=== PATIENT | female | born 1990 | race American Indian/Alaskan Native ===

== ENCOUNTER 2017-06-26 16:07 | Emergency (ER) | payer MEDICAID ==
[2017-06-26 17:16] LABS: Hematocrit 38.9 % (30.3-42.9); Hemoglobin 12.2 gm/dl (10.1-14.3); Mean Corpuscular HGB Conc 32 % (30-34); Mean Corpuscular Volume 81 fl (79-97); Platelet Count 264 K/mm3 (140-440); Red Blood Count 4.81 M/mm3 (3.65-5.03); Red Cell Distribution Width 15.2 % (13.2-15.2); White Blood Count 7.5 K/mm3 (4.5-11.0)
[2017-06-26 17:34] LABS: BUN/Creatinine Ratio 20; Blood Urea Nitrogen 10 mg/dL (7-17); Calcium 8.6 mg/dL (8.4-10.2); Carbon Dioxide 25 mmol/L (22-30); Glucose 458 mg/dL (65-100); Potassium 4.2 mmol/L (3.6-5.0); Sodium 139 mmol/L (137-145)
[2017-06-26 17:35] LABS: Anion Gap 17 mmol/L; Chloride 101.7 mmol/L (98-107); Mean Corpuscular Hemoglobin 25 pg (28-32)
[2017-06-26 20:42] LABS: Urine Drugs of Abuse Note Disclamer
[2017-06-26 21:06] LABS: Bilirubin,Urine NEG (Negative); Blood,Urine SM (Negative); Ketones,Urine NEG (Negative); Leukocyte Esterase,Urine NEG (Negative); Nitrite,Urine NEG (Negative); Protein,Urine <15 mg/dL mg/dL (Negative); Urobilinogen,Urine < 2.0 mg/dL (<2.0)
--- NOTE | 2017-06-26 21:49 | Cat Scan Report ---
FINAL REPORT PROCEDURE: CT HEAD/BRAIN WO CON TECHNIQUE: Computerized tomography of the head was performed without contrast material. HISTORY: weakness on left side COMPARISON: No prior studies are available for comparison. FINDINGS: Visualized portions of the paranasal sinuses and mastoid air cells are clear. No calvarial fracture is seen. Cerebral ventricles are normal in size. No acute intracranial hemorrhage or mass effect is seen. No CVA is seen. IMPRESSION: No abnormalities are seen.
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
[2017-06-27 00:15] VITALS: BP 129/78
[2017-06-27] MEDS ORDERED: TORADOL IV ONE (00:28)
[2017-06-27] MEDS ORDERED: TORADOL ONE (00:29)
[2017-06-27 01:54] LABS: INR 0.96 (0.87-1.13)
[2017-06-27 01:55] LABS: Partial Thromboplastin Time 24.1 Sec. (24.2-36.6)
== END 2017-06-27 02:08 | disposition admitted as inpatient to this hospital (09) ==
LOC: ED 16:07
DX: G40.909 Epilepsy, unspecified, not intractable, without status epilepticus (principal); E11.65 Type 2 diabetes mellitus with hyperglycemia; Z79.4 Long term (current) use of insulin; R53.1 Weakness; F17.200 Nicotine dependence, unspecified, uncomplicated; Z88.8 Allergy status to other drugs, medicaments and biological substances
CPT/HCPCS: 36415; 70450; 80048; 80307; 81001; 81025; 82550; 82962; 85027; 85379; 85610; 85730; 96374; 96375; 99284; J1885; J1815

== ENCOUNTER 2017-10-18 21:19 | Emergency (ER) | payer MEDICAID ==
[2017-10-18 21:44] VITALS: BP 110/53
[2017-10-18 22:03] LABS: Basophils # (Auto) 0.1 K/mm3 (0.0-0.1); Basophils % (Auto) 0.8 % (0.0-1.8); Eosinophils # (Auto) 0.1 K/mm3 (0.0-0.4); Eosinophils % (Auto) 0.8 % (0.0-4.3); Hematocrit 43.1 % (30.3-42.9); Hemoglobin 13.5 gm/dl (10.1-14.3); Lymphocytes # (Auto) 3.8 K/mm3 (1.2-5.4); Lymphocytes % (Auto) 49.2 % (13.4-35.0); Mean Corpuscular HGB Conc 31 % (30-34); Mean Corpuscular Volume 83 fl (79-97); Monocytes # (Auto) 0.5 K/mm3 (0.0-0.8); Monocytes % (Auto) 6.3 % (0.0-7.3); Platelet Count 251 K/mm3 (140-440)
[2017-10-18 22:06] LABS: Mean Corpuscular Hemoglobin 26 pg (28-32)
[2017-10-18 22:14] LABS: BUN/Creatinine Ratio 13; Blood Urea Nitrogen 5 mg/dL (7-17); Calcium 7.9 mg/dL (8.4-10.2); Hemolysis Index 8
[2017-10-18 23:08] LABS: Bilirubin,Urine NEG (Negative); Blood,Urine NEG (Negative); Color,Urine Straw (Yellow); Protein,Urine <15 mg/dL mg/dL (Negative); Urobilinogen,Urine < 2.0 mg/dL (<2.0); WBC,Urine < 1.0 /HPF (0.0-6.0)
== END 2017-10-19 00:50 | disposition left against medical advice (07) ==
LOC: ED 21:19
DX: R30.0 Dysuria (principal); Z53.21 Procedure and treatment not carried out due to patient leaving prior to being seen by health care provider
CPT/HCPCS: 36415; 80048; 81001; 82805; 82962; 84703; 85025

== ENCOUNTER 2017-10-19 01:31 | Emergency (ER) | payer MEDICAID | END 2017-10-19 01:45 | disposition left against medical advice (07) | LOC: ED 01:31 | DX: N93.9 Abnormal uterine and vaginal bleeding, unspecified (principal); Z53.21 Procedure and treatment not carried out due to patient leaving prior to being seen by health care provider ==

== ENCOUNTER 2018-05-21 15:50 | Outpatient (CLI) | payer MEDICAID ==
[2018-05-21] MEDS ORDERED: LACTATED RINGERS 1,000 ML ONE (16:05)
[2018-05-21] MEDS ORDERED: FIORICET PO PRN (16:09)
[2018-05-21] MEDS ORDERED: LACTATED RINGERS 500 ML IV ONE ×2 (16:17→17:00)
[2018-05-21 17:00] LABS: Bilirubin,Urine NEG (Negative); Blood,Urine NEG (Negative); Color,Urine Yellow (Yellow); Mucus,Urine FEW /HPF; Protein,Urine <15 mg/dL mg/dL (Negative); Urobilinogen,Urine < 2.0 mg/dL (<2.0)
[2018-05-21 17:06] LABS: Amphetamine Screen,Urine PRESUMPTIVE NEGATIVE; Benzodiazepines Screen,Urine PRESUMPTIVE NEGATIVE; Cocaine Screen,Urine PRESUMPTIVE NEGATIVE; Methadone Screen,Urine PRESUMPTIVE NEGATIVE; Opiate Screen,Urine PRESUMPTIVE NEGATIVE
[2018-05-21 17:22] LABS: Cannabinoid Screen,Urine PRESUMPTIVE POSITIVE
[2018-05-21 17:25] VITALS: BP 112/58
[2018-05-23] MEDS ORDERED: PITOCin/NS 20 UNIT/1000ML DRIP 0 MILLIUNITS/0 ML BAG IV ONE (00:43)
[2018-05-23] MEDS ORDERED: LACTATED RINGERS 1,000 ML ONE (00:51)
== END 2018-05-21 17:36 | disposition home or self-care (01) ==
LOC: TRG 15:50
PROVIDERS: ATTEND Obstetrics & Gynecology
DX: O47.03 False labor before 37 completed weeks of gestation, third trimester (principal); Z3A.35 35 weeks gestation of pregnancy; Z87.891 Personal history of nicotine dependence
CPT/HCPCS: 59025; 80307; 81001; 82962; 96360; J7120

== ENCOUNTER 2019-04-09 17:29 | Emergency (ER) | payer MEDICAID ==
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
[2019-04-09] MEDS ORDERED: levETIRAcetam 1000 MG/NS 0.75% 1,000 MG/100 ML BAG IV ONE ×2 (17:57)
[2019-04-09] MEDS ORDERED: SODIUM CHLORIDE 0.9% 1000 ML 1,000 ML IV ONE (17:57)
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
[2019-04-09] MEDS ORDERED: SODIUM CHLORIDE 0.9% 1000 ML 1,000 ML ONE (18:01)
[2019-04-09 18:45] LABS: Alanine Aminotransferase 8 units/L (7-56); Albumin 3.5 g/dL (3.9-5); BUN/Creatinine Ratio 12; Blood Urea Nitrogen 6 mg/dL (7-17); Calcium 8.5 mg/dL (8.4-10.2); Hemolysis Index 4
[2019-04-09] MEDS ORDERED: INSULIN REGULAR, HUMAN 100 UNITS/1 ML IV ONE (18:59)
[2019-04-09 21:02] LABS: Bacteria,Urine 1+ /HPF (Negative); Bilirubin,Urine NEG (Negative); Blood,Urine NEG (Negative); Color,Urine Yellow (Yellow); HCG Qualitative,Urine Negative (Negative); Mucus,Urine FEW /HPF; Protein,Urine <15 mg/dL mg/dL (Negative); Urobilinogen,Urine < 2.0 mg/dL (<2.0)
[2019-04-09] MEDS ORDERED: cefTRIAXone/NS 1 GM/50 ML 1 GM/50 ML BAG IV ONE (21:11)
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
--- NOTE | 2019-04-09 22:15 | Cat Scan Report ---
CT cervical spine wo con INDICATION: neck pain. TECHNIQUE: All CT scans at this location are performed using CT dose reduction for ALARA by means of automated e xposure control. COMPARISON: None available. FINDINGS: No fracture, subluxation or other significant abnormality. IMPRESSION: 1. Negative study. Signer Name: Kris Vargas MD Signed: 04/09/2019 10:10 PM Workstation Name: [id number]
--- NOTE | 2019-04-09 22:31 | Cat Scan Report ---
CT lumbar spine wo con INDICATION: back pain/injury. TECHNIQUE: All CT scans at this location are performed using CT dose reduction for ALARA by means of automated e xposure control. COMPARISON: None available. FINDINGS: No fracture, subluxation or other acute abnormality. No significant degenerative disc change or degen erative change of the facet joints. IMPRESSION: 1. Negative study. Signer Name: Kris Vargas MD Signed: 04/09/2019 10:26 PM Workstation Name: [id number]
[2019-04-09 23:37] VITALS: BP 116/82
== END 2019-04-09 23:49 | disposition home or self-care (01) ==
LOC: ED 17:29
DX: G44.309 Post-traumatic headache, unspecified, not intractable (principal); E11.65 Type 2 diabetes mellitus with hyperglycemia; R56.1 Post traumatic seizures; N30.00 Acute cystitis without hematuria; F25.9 Schizoaffective disorder, unspecified; F41.9 Anxiety disorder, unspecified; F43.10 Post-traumatic stress disorder, unspecified; Z79.899 Other long term (current) drug therapy; Z79.4 Long term (current) use of insulin; Z88.8 Allergy status to other drugs, medicaments and biological substances; V49.49XA Driver injured in collision with other motor vehicles in traffic accident, initial encounter; Y93.89 Activity, other specified; Y92.410 Unspecified street and highway as the place of occurrence of the external cause; Y99.8 Other external cause status
CPT/HCPCS: 36415; 70450; 72125; 72131; 80053; 80177; 81001; 81025; 82962; 96365; 96366; 96367; 96375; 99284; J0696; J1953; J7030; J1815

== ENCOUNTER 2019-11-30 04:08 | Inpatient (IN) | payer MEDICAID, OTHER ==
[2019-11-30 05:08] LABS: Bilirubin,Urine NEG (Negative); Blood,Urine LG (Negative); Color,Urine Straw (Yellow); Mucus,Urine FEW /HPF; Protein,Urine <15 mg/dL mg/dL (Negative); Urobilinogen,Urine < 2.0 mg/dL (<2.0)
[2019-11-30 05:21] LABS: Basophils % (Auto) 0.4 % (0.0-1.8); Eosinophils # (Auto) 0.1 K/mm3 (0.0-0.4); Eosinophils % (Auto) 0.9 % (0.0-4.3); Hematocrit 45.5 % (30.3-42.9); Hemoglobin 14.3 gm/dl (10.1-14.3); Lymphocytes # (Auto) 1.7 K/mm3 (1.2-5.4); Lymphocytes % (Auto) 19.5 % (13.4-35.0); Mean Corpuscular HGB Conc 31 % (30-34); Mean Corpuscular Volume 85 fl (79-97); Monocytes # (Auto) 0.7 K/mm3 (0.0-0.8); Monocytes % (Auto) 7.9 % (0.0-7.3); Platelet Count 229 K/mm3 (140-440); Red Blood Count 5.39 M/mm3 (3.65-5.03); Red Cell Distribution Width 14.5 % (13.2-15.2)
[2019-11-30] MEDS ORDERED: HYDROmorphone 1 MG/1 ML INJ ONE (05:35)
[2019-11-30 05:36] LABS: Alanine Aminotransferase 7 units/L (7-56); Albumin 3.9 g/dL (3.9-5); BUN/Creatinine Ratio 10; Blood Urea Nitrogen 7 mg/dL (7-17); Calcium 9.5 mg/dL (8.4-10.2); Hemolysis Index 2
[2019-11-30] MEDS ORDERED: HYDROmorphone 1 MG/1 ML INJ IV ONE (05:42)
--- NOTE | 2019-11-30 06:04 | Event Note ---
ED Screening Note Date of service: 11/30/19 Time: 05:58 ED Screening Note: 29-year-old -Citizen Of [place] female with a history of diabetes type 2 insulin- dependent comes in stating that she has 3 bowls on her vaginal area and states that her blood sugar has been elevated for 1 week. Patient states her pain is a 10 out of 10. This initial assessment/diagnostic orders/clinical plan/treatment(s) is/are subject to change based on patients health status, clinical progression and re- assessment by fellow clinical providers in the ED. Further treatment and workup at subsequent clinical providers discretion. Patient/guardian urged not to elope from the ED as their condition may be serious if not clinically assessed and managed. Initial orders include:
[2019-11-30] MEDS ORDERED: DEXTROSE 50% IN WATER (25GM) 50 ML SYRINGE IV PRN ×2 (06:10→11:28)
[2019-11-30] MEDS ORDERED: CEFEPIME/NS 1 GM/100 ML 1 GM/100 ML BAG IV ONE (06:19)
[2019-11-30] MEDS ORDERED: SODIUM CHLORIDE 0.9% 1000 ML 1,000 ML ONE (06:20)
[2019-11-30] MEDS ORDERED: VANCOMYCIN 1,500 MG in SODIUM CHLORIDE 0.9% 500 ML 500 ML IV ONE (06:30)
[2019-11-30] MEDS ORDERED: SODIUM CHLORIDE 0.9% 1000 ML 1,000 ML IV ONE ×3 (06:37→08:40)
[2019-11-30] MEDS ORDERED: VANCOMYCIN PHARMACY TO DOSE IV SCH (07:00)
[2019-11-30] MEDS ORDERED: INSULIN REGULAR, HUMAN 100 UNITS in SODIUM CHLORIDE 0.9% 99 ML IV SCH ×2 (07:00→12:00)
[2019-11-30] MEDS ORDERED: LIDOCAINE 1%/EPINEPHRINE 1:100,000 VIAL (20 ML) INFILTRATI ONE (07:12)
--- NOTE | 2019-11-30 07:12 | Emergency Department Report ---
ED General Adult HPI - General Chief complaint: Hyperglycemia Stated complaint: HIGH BLOOD SUGAR, VAGINAL BOILS Time Seen by Provider: 11/30/19 06:14 Source: patient, family, EMS Mode of arrival: Ambulatory Limitations: No Limitations - History of Present Illness Initial comments: This is a 29-year-old female who states that her sugars been elevated since yesterday. She states that she last used insulin yesterday morning. She states that she has never been treated for MRSA in the past. She states that she has never had a serious infection or a vaginal abscess before. Apparently she has had a vaginal abscess for the last several days. She also c omplains of bilateral flank pain, stating, "my kidneys hurt". She complains of generalized malaise and weakness. She has polydipsia. Previous records are largely obstetrical. There is a notation of "DKA". However I do not find any admission for DKA. I do see a history of seizure disorder, schizoaffective disorder and herpes simplex infection. -: Gradual, days(s) Severity scale (0 -10): 2 - Related Data Home Medications Medication Instructions Recorded Confirmed Last Taken Vit,Calc76/Iron/Folic 1 each PO DAILY 05/21/18 06/01/18 05/31/18 [Pnv 29-1 Tablet] Acyclovir [Zovirax Tab] 1 tab PO QDAY 06/01/18 06/01/18 05/31/18 Previous Rx's Medication Instructions Recorded Last Taken Type Ferrous Sulfate [Feosol 325 MG tab] 325 mg PO BID #60 tablet 06/02/18 Unknown Rx HYDROcodone/APAP 5-325 [Gray 1 each PO Q6HR PRN #30 tablet 06/02/18 Unknown Rx 5-325 mg TAB] Ibuprofen [Motrin 800 MG tab] 800 mg PO Q6H PRN #30 tablet 06/02/18 Unknown Rx Insulin NPH Hum/Reg Insulin Hm 50 units SUB-Q BID #1 vial 06/02/18 Unknown Rx [Humulin 70-30 Vial] Vit-Fe Fumar-FA [ 1 each PO QDAY #30 tablet 06/02/18 Unknown Rx Vitamin] levETIRAcetam [Keppra] 750 mg PO BID #60 tablet 06/02/18 Unknown Rx Acetaminophen/Codeine [Tylenol 1 tab PO Q6H PRN #8 tab 04/09/19 Unknown Rx /Codeine # 3 tab] cephALEXin [Keflex] 500 mg PO Q12H 7 Days #14 cap 04/09/19 Unknown Rx levETIRAcetam [Keppra TAB] 1,000 mg PO BID 15 Days #30 tab 04/09/19 Unknown Rx Allergies Allergy/AdvReac Type Severity Reaction Status Date / Time ondansetron Allergy Hives Verified 11/30/19 04:16 [From Zofran (as hydrochloride)] ED Review of Systems ROS: Stated complaint: HIGH BLOOD SUGAR, VAGINAL BOILS Other details as noted in HPI Constitutional: weakness. denies: chills, fever Eyes: denies: eye pain, eye discharge, vision change ENT: denies: ear pain, throat pain Respiratory: denies: cough, shortness of breath, wheezing Cardiovascular: denies: chest pain, palpitations Endocrine: no symptoms reported Gastrointestinal: denies: abdominal pain, diarrhea Genitourinary: other (Vaginal abscess). denies: urgency, dysuria, discharge Musculoskeletal: back pain. denies: joint swelling, arthralgia Skin: denies: rash, lesions Neurological: denies: headache, weakness, paresthesias Psychiatric: denies: anxiety, depression Hematological/Lymphatic: denies: easy bleeding, easy bruising ED Past Medical Hx - Past Medical History Hx Hypertension: No Hx Congestive Heart Failure: No Hx Diabetes: Yes (type 2) Hx Deep Vein Thrombosis: No Hx Sickle Cell Disease: No Hx Seizures: Yes (patient seized in labor room prior to ; last dose keppra 10 AM) Hx Psychiatric Treatment: Yes (Ptsd schizoaffective anxeity) Hx Asthma: No Hx COPD: No Hx HIV: No - Surgical History Additional Surgical History: umbilical hernia 03/2017 - Social History Smoking Status: Never Smoker Substance Use Type: None - Medications Home Medications: Home Medications Medication Instructions Recorded Confirmed Last Taken Type Vit,Calc76/Iron/Folic 1 each PO DAILY 05/21/18 06/01/18 05/31/18 History [Pnv 29-1 Tablet] Acyclovir [Zovirax Tab] 1 tab PO QDAY 06/01/18 06/01/18 05/31/18 History Ferrous Sulfate [Feosol 325 MG tab] 325 mg PO BID #60 tablet 06/02/18 Unknown Rx HYDROcodone/APAP 5-325 [Gray 1 each PO Q6HR PRN #30 tablet 06/02/18 Unknown Rx 5-325 mg TAB] Ibuprofen [Motrin 800 MG tab] 800 mg PO Q6H PRN #30 tablet 06/02/18 Unknown Rx Insulin NPH Hum/Reg Insulin Hm 50 units SUB-Q BID #1 vial 06/02/18 Unknown Rx [Humulin 70-30 Vial] Vit-Fe Fumar-FA [ 1 each PO QDAY #30 tablet 06/02/18 Unknown Rx Vitamin] levETIRAcetam [Keppra] 750 mg PO BID #60 tablet 06/02/18 Unknown Rx Acetaminophen/Codeine [Tylenol 1 tab PO Q6H PRN #8 tab 04/09/19 Unknown Rx /Codeine # 3 tab] cephALEXin [Keflex] 500 mg PO Q12H 7 Days #14 cap 04/09/19 Unknown Rx levETIRAcetam [Keppra TAB] 1,000 mg PO BID 15 Days #30 tab 04/09/19 Unknown Rx ED Physical Exam - General Limitations: Physical Limitation General appearance: alert, in distress - Head Head exam: Present: atraumatic, normocephalic - Eye Eye exam: Present: normal appearance. Absent: scleral icterus - ENT ENT exam: Present: mucous membranes dry - Neck Neck exam: Present: normal inspection. Absent: tenderness, meningismus - Respiratory Respiratory exam: Present: normal lung sounds bilaterally. Absent: respiratory distress - Cardiovascular Cardiovascular Exam: Present: normal rhythm, tachycardia. Absent: systolic murmur, diastolic murmur, rubs, gallop - GI/Abdominal GI/Abdominal exam: Present: soft, normal bowel sounds. Absent: distended, tenderness, guarding, rebound, rigid - Extremities Exam Extremities exam: Present: normal inspection - Back Exam Back exam: Present: normal inspection - Neurological Exam Neurological exam: Present: alert, oriented X3, CN II-XII intact. Absent: motor sensory deficit - Psychiatric Psychiatric exam: Present: agitated, anxious - Skin Skin exam: Present: warm, dry, intact, normal color. Absent: rash ED Course Vital Signs 11/30/19 11/30/19 11/30/19 04:11 05:30 05:46 Temperature 98.6 F Pulse Rate 68 63 Respiratory 20 16 Rate Blood Pressure 129/66 128/72 O2 Sat by Pulse 97 97 96 Oximetry 11/30/19 11/30/19 11/30/19 06:00 06:16 06:30 Temperature Pulse Rate 60 67 61 Respiratory 20 19 16 Rate Blood Pressure 121/70 121/70 130/78 O2 Sat by Pulse 97 96 94 Oximetry - I & D Vagina Type of Procedure: Simple Blade Size: 11 I & D Procedure: betadine prep, gauze wick placed Progress: Well-tolerated. A 1 to 2 cm incision was made. Culture was obtained. There really was not any obvious fluctuance. A second incision was made. This achieved obvious fluctuance. Culture was sent. - Moderate Sedation Indications: inciscion and drainage ASA Class: II Mallampati Airway Score: 1 Time of Last PO Intake: 00:00 Preparation: conveyor monitor applied, pulse oximeter, capnometry used, supplemental O2 applied, reversal agents at bedside, suction/airway equipment at bedside, IV secured Ketamine: IV Ketamine Dose: 100 Complications: none Patient Tolerated Procedure: well ED Medical Decision Making - Lab Data Result diagrams: 11/30/19 04:53 11/30/19 04:53 Laboratory Results - last 24 hr 11/30/19 11/30/19 11/30/19 04:29 04:50 04:53 WBC 8.7 RBC 5.39 H Hgb 14.3 Hct 45.5 H MCV 85 MCH 27 L MCHC 31 RDW 14.5 Plt Count 229 Lymph % (Auto) 19.5 [place] % (Auto) 7.9 H Eos % (Auto) 0.9 Baso % (Auto) 0.4 Lymph # 1.7 [place] # 0.7 Eos # 0.1 Baso # 0.0 Seg Neutrophils % 71.3 H Seg Neutrophils # 6.2 VBG pH Sodium Potassium Chloride Carbon Dioxide Anion Gap BUN Creatinine Estimated GFR BUN/Creatinine Ratio Glucose POC Glucose > 500 H Calcium Total Bilirubin AST ALT Alkaline Phosphatase Total Protein Albumin Albumin/Globulin Ratio Urine Color Straw Urine Turbidity Clear Urine pH 6.0 Ur Specific [place] 1.029 Urine Protein <15 mg/dl Urine Glucose (UA) >=500 Urine Ketones Neg Urine Blood Lg Urine Nitrite Neg Urine Bilirubin Neg Urine Urobilinogen < 2.0 Ur Leukocyte Esterase Tr Urine WBC (Auto) 4.0 Urine RBC (Auto) 4.0 U Epithel Cells (Auto) 5.0 Urine Mucus Few 04/30/20 04/30/20 04:53 04:53 WBC RBC Hgb Hct MCV MCH MCHC RDW Plt Count Lymph % (Auto) [place] % (Auto) Eos % (Auto) Baso % (Auto) Lymph # [place] # Eos # Baso # Seg Neutrophils % Seg Neutrophils # VBG pH 7.295 L Sodium 122 L Potassium 4.0 Chloride 85.7 L Carbon Dioxide 25 Anion Gap 15 BUN 7 Creatinine 0.7 Estimated GFR > 60 BUN/Creatinine Ratio 10 Glucose 992 H* POC Glucose Calcium 9.5 Total Bilirubin 0.20 AST 8 ALT 7 Alkaline Phosphatase 118 Total Protein 7.2 Albumin 3.9 Albumin/Globulin Ratio 1.2 Urine Color Urine Turbidity Urine pH Ur Specific [place] Urine Protein Urine Glucose (UA) Urine Ketones Urine Blood Urine Nitrite Urine Bilirubin Urine Urobilinogen Ur Leukocyte Esterase Urine WBC (Auto) Urine RBC (Auto) U Epithel Cells (Auto) Urine Mucus Critical Care Time: Yes Critical care time in (mins) excluding proc time.: 90 Critical care attestation.: If time is entered above; I have spent that time in minutes in the direct care of this critically ill patient, excluding procedure time. ED Disposition Clinical Impression: HHNC (hyperglycemic hyperosmolar nonketotic coma), Abscess, vagina Schizoaffective disorder Qualifiers: Schizoaffective disorder type: unspecified Qualified Code(s): F25.9 - Schizoaffective disorder, unspecified Disposition: OP ADMIT IP TO THIS HOSP Is pt being admited?: Yes Does the pt Need Aspirin: No Condition: Stable Instructions: Diabetes Mellitus Type 2 in Adults (ED) Referrals: PRIMARY CARE [Primary Care Provider] - 3-5 Days Time of Disposition: 08:18
[2019-11-30 07:31] LABS: INR 0.96 (0.87-1.13); Partial Thromboplastin Time 23.2 Sec. (24.2-36.6)
[2019-11-30 07:32] LABS: Creatine Kinase MB 1.1 ng/mL (0.0-4.0)
[2019-11-30 07:41] LABS: BUN/Creatinine Ratio 14; Blood Urea Nitrogen 7 mg/dL (7-17); Calcium 9.5 mg/dL (8.4-10.2); Hemolysis Index 75
[2019-11-30] MEDS: KETAMINE 500 MG/5 ML VIAL MDV IV ONE ×2 (07:54→08:00)
[2019-11-30] MEDS ORDERED: LORazepam 2 MG/ML VIAL IV ONE ×2 (07:58→08:00)
[2019-11-30] MEDS ORDERED: LORazepam 2 MG/ML VIAL ONE (07:59)
[2019-11-30 09:02] LABS: BUN/Creatinine Ratio 10; Blood Urea Nitrogen 5 mg/dL (7-17); Calcium 8.1 mg/dL (8.4-10.2); Hemolysis Index 7
[2019-11-30] MEDS ORDERED: POTASSIUM CHLORIDE 10 MEQ 10 MEQ/100 ML BAG IV SCH (10:00)
[2019-11-30] MEDS ORDERED: D5W/0.45% NACL/KCL 20 MEQ 20 MEQ/1,000 ML BAG IV ONE ×2 (10:42→10:43)
--- NOTE | 2019-11-30 10:58 | History and Physical Report ---
History of Present Illness Date of examination: 11/30/19 Date of admission: 11/30/19 08:19 Chief complaint: Elevated BG, vaginal abscess History of present illness: 29-year-old female who states that her sugars have been elevated since yesterday. She states that she last used insulin yesterday morning. She states that she has never been treated for MRSA in the past. She states that she has never had a serious infection or a vaginal abscess before. Apparently she has had a vaginal abscess for the last several days. She also complains of bilateral flank pain, stating, "my kidneys hurt". She complains of generalized malaise and weakness. She has polydipsia. Although the history was obtained from the ER record. Patient was somnolent at the time of my interview and not responding to questions. Patient did follow intermittent commands and open eyes to voice. Past History Past Medical History: diabetes, seizures, other (Schizoaffective disorder) Past Surgical History: Other ( umbilical hernia 03/2017) Social history: no significant social history Family history: no significant family history Medications and Allergies Allergies Allergy/AdvReac Type Severity Reaction Status Date / Time ondansetron Allergy Hives Verified 11/30/19 04:16 [From Zofran (as hydrochloride)] Home Medications Medication Instructions Recorded Confirmed Last Taken Type Vit,Calc76/Iron/Folic 1 each PO DAILY 05/21/18 06/01/18 05/31/18 History [Pnv 29-1 Tablet] Acyclovir [Zovirax Tab] 1 tab PO QDAY 06/01/18 06/01/18 05/31/18 History Ferrous Sulfate [Feosol 325 MG tab] 325 mg PO BID #60 tablet 06/02/18 Unknown Rx HYDROcodone/APAP 5-325 [[place] 1 each PO Q6HR PRN #30 tablet 06/02/18 Unknown Rx 5-325 mg TAB] Ibuprofen [Motrin 800 MG tab] 800 mg PO Q6H PRN #30 tablet 06/02/18 Unknown Rx Insulin NPH Hum/Reg Insulin Hm 50 units SUB-Q BID #1 vial 06/02/18 Unknown Rx [Humulin 70-30 Vial] Vit-Fe Fumar-FA [ 1 each PO QDAY #30 tablet 06/02/18 Unknown Rx Vitamin] levETIRAcetam [Keppra] 750 mg PO BID #60 tablet 06/02/18 Unknown Rx Acetaminophen/Codeine [Tylenol 1 tab PO Q6H PRN #8 tab 04/09/19 Unknown Rx /Codeine # 3 tab] cephALEXin [Keflex] 500 mg PO Q12H 7 Days #14 cap 04/09/19 Unknown Rx levETIRAcetam [Keppra TAB] 1,000 mg PO BID 15 Days #30 tab 04/09/19 Unknown Rx Active Meds: Active Medications Dextrose (D50w (25gm) Syringe) 0 ml IV Q30MIN PRN; Protocol PRN Reason: Hypoglycemia Insulin Human Regular 100 (units/ Sodium Chloride) 100 mls @ 1 mls/hr IV TITR YOJANA; Protocol Last Titration: 11/30/19 10:21 Dose: 5 units/hr, 5 mls/hr Documented by: Vancomycin HCl 1,250 mg/ (Sodium Chloride) 275 mls @ 166.667 mls/hr IV Q8HR YOJANA Sodium Chloride (Nacl 0.9% 1000 Ml) 1,000 mls @ 125 mls/hr IV DIRECT YOJANA Potassium Chloride (Kcl 10meq/100ml) 10 meq in 100 mls @ 100 mls/hr IV Q1H YOJANA Stop: 11/30/19 13:59 Review of Systems All systems: negative Exam - Constitutional Vitals: Temp Pulse Resp BP Pulse Ox 97.8 F 72 20 110/61 100 11/30/19 07:42 11/30/19 10:27 11/30/19 10:27 11/30/19 09:45 11/30/19 09:45 General appearance: Present: no acute distress, well-nourished - EENT Eyes: Present: PERRL ENT: hearing intact, clear oral mucosa - Neck Neck: Present: supple, normal ROM - Respiratory Respiratory effort: normal Respiratory: bilateral: CTA - Cardiovascular Heart Sounds: Present: S1 & S2. Absent: rub, click - Extremities Extremities: pulses symmetrical, No edema Peripheral Pulses: within normal limits - Abdominal General gastrointestinal: Present: soft, non-tender, non-distended, normal bowel sounds Female genitourinary: Present: normal - Integumentary Integumentary: Present: clear, warm, dry - Musculoskeletal Musculoskeletal: gait normal, strength equal bilaterally - Psychiatric Psychiatric: appropriate mood/affect, intact judgment & insight - Neurologic Neurologic: CNII-XII intact, moves all extremities Results - Labs CBC & Chem 7: 11/30/19 04:53 11/30/19 08:23 Labs: Laboratory Last Values WBC 8.7 K/mm3 (4.5-11.0) 11/30/19 04:53 RBC 5.39 M/mm3 (3.65-5.03) H 11/30/19 04:53 Hgb 14.3 gm/dl (10.1-14.3) 11/30/19 04:53 Hct 45.5 % (30.3-42.9) H 11/30/19 04:53 MCV 85 fl (79-97) 11/30/19 04:53 MCH 27 pg (28-32) L 11/30/19 04:53 MCHC 31 % (30-34) 11/30/19 04:53 RDW 14.5 % (13.2-15.2) 11/30/19 04:53 Plt Count 229 K/mm3 (140-440) 11/30/19 04:53 Lymph % (Auto) 19.5 % (13.4-35.0) 11/30/19 04:53 [place] % (Auto) 7.9 % (0.0-7.3) H 11/30/19 04:53 Eos % (Auto) 0.9 % (0.0-4.3) 11/30/19 04:53 Baso % (Auto) 0.4 % (0.0-1.8) 11/30/19 04:53 Lymph # 1.7 K/mm3 (1.2-5.4) 11/30/19 04:53 [place] # 0.7 K/mm3 (0.0-0.8) 11/30/19 04:53 Eos # 0.1 K/mm3 (0.0-0.4) 11/30/19 04:53 Baso # 0.0 K/mm3 (0.0-0.1) 11/30/19 04:53 Seg Neutrophils % 71.3 % (40.0-70.0) H 11/30/19 04:53 Seg Neutrophils # 6.2 K/mm3 (1.8-7.7) 11/30/19 04:53 PT 12.9 Sec. (12.2-14.9) 11/30/19 06:47 INR 0.96 (0.87-1.13) 11/30/19 06:47 APTT 23.2 Sec. (24.2-36.6) L 11/30/19 06:47 VBG pH 7.295 (7.320-7.420) L 11/30/19 04:53 Sodium 132 mmol/L (137-145) L D 11/30/19 08:23 Potassium 3.5 mmol/L (3.6-5.0) L D 11/30/19 08:23 Chloride 99.1 mmol/L (98-107) 11/30/19 08:23 Carbon Dioxide 21 mmol/L (22-30) L 11/30/19 08:23 Anion Gap 15 mmol/L 11/30/19 08:23 BUN 5 mg/dL (7-17) L 11/30/19 08:23 Creatinine 0.5 mg/dL (0.7-1.2) L 11/30/19 08:23 Estimated GFR > 60 ml/min 11/30/19 08:23 BUN/Creatinine Ratio 10 % 11/30/19 08:23 Glucose 504 mg/dL (65-100) H* 11/30/19 08:23 POC Glucose 250 (70-105) H 11/30/19 10:34 Lactic Acid 1.40 mmol/L (0.7-2.0) 11/30/19 06:47 Calcium 8.1 mg/dL (8.4-10.2) L 11/30/19 08:23 Phosphorus 5.00 mg/dL (2.5-4.5) H 11/30/19 06:47 Magnesium 1.90 mg/dL (1.7-2.3) 11/30/19 06:47 Total Bilirubin 0.20 mg/dL (0.1-1.2) 11/30/19 04:53 AST 8 units/L (5-40) 11/30/19 04:53 ALT 7 units/L (7-56) 11/30/19 04:53 Alkaline Phosphatase 118 units/L (35-129) 11/30/19 04:53 Total Creatine Kinase 66 units/L (30-135) 11/30/19 06:47 CK-MB (CK-2) 1.1 ng/mL (0.0-4.0) 11/30/19 06:47 CK-MB (CK-2) Rel Index 1.6 (0-4) 11/30/19 06:47 Troponin T < 0.010 ng/mL (0.00-0.029) 11/30/19 06:47 NT-Pro-B Natriuret Pep 61.51 pg/mL (0-450) 11/30/19 06:47 Total Protein 7.2 g/dL (6.3-8.2) 11/30/19 04:53 Albumin 3.9 g/dL (3.9-5) 11/30/19 04:53 Albumin/Globulin Ratio 1.2 % 11/30/19 04:53 Urine Color Straw (Yellow) 11/30/19 04:50 Urine Turbidity Clear (Clear) 11/30/19 04:50 Urine pH 6.0 (5.0-7.0) 11/30/19 04:50 Ur Specific [place] 1.029 (1.003-1.030) 11/30/19 04:50 Urine Protein <15 mg/dl mg/dL (Negative) 11/30/19 04:50 Urine Glucose (UA) >=500 mg/dL (Negative) 11/30/19 04:50 Urine Ketones Neg mg/dL (Negative) 11/30/19 04:50 Urine Blood Lg (Negative) 11/30/19 04:50 Urine Nitrite Neg (Negative) 11/30/19 04:50 Urine Bilirubin Neg (Negative) 11/30/19 04:50 Urine Urobilinogen < 2.0 mg/dL (<2.0) 11/30/19 04:50 Ur Leukocyte Esterase Tr (Negative) 11/30/19 04:50 Urine WBC (Auto) 4.0 /HPF (0.0-6.0) 11/30/19 04:50 Urine RBC (Auto) 4.0 /HPF (0.0-6.0) 11/30/19 04:50 U Epithel Cells (Auto) 5.0 /HPF (0-13.0) 11/30/19 04:50 Urine Mucus Few /HPF 11/30/19 04:50 Microbiology: Microbiology 11/30/19 Unknown Peripheral/Venous Blood Culture - Preliminary Culture in Progress 11/30/19 Unknown Peripheral/Venous Blood Culture - Preliminary Culture in Progress Assessment and Plan Assessment and plan: Sepsis. Patient meets criteria given the tachypnea, altered mentation and diagnosis of vaginal/labial abscess. Follow-up labial cultures, blood cultures and lactic acid levels. Continue IV antibiotics. Consider ID consultation. Vaginal labial abscess. Surgery consultation. Patient with I&D in the emergency department. Hyperosmolar nonketotic syndrome. Etiology secondary to above. Continue IV insulin drip for now. Patient will be transition to long-acting insulin once stabilized. Toxic metabolic encephalopathy. Etiology secondary to above. Continue to treat underlying causes. The high probability of a clinically significant, sudden or life threatening deterioration of the [neurological and endocrine] system(s) required my full and direct attention, intervention and personal management. The aggregate critical c are time was [32] minutes. This time is in addition to time spent performing reported procedures but includes the following: [x] Data Review and interpretation [x] Patient assessment and monitoring of vital signs [x] Documentation [x] Medication orders and management
[2019-11-30] MEDS ORDERED: INSULIN REGULAR, HUMAN 100 UNITS/1 ML SUB-Q SCH (11:30)
[2019-11-30 12:33] LABS: BUN/Creatinine Ratio 10; Blood Urea Nitrogen 4 mg/dL (7-17); Calcium 7.6 mg/dL (8.4-10.2); Hemolysis Index 13
--- NOTE | 2019-11-30 12:41 | Consultation ---
History of Present Illness Consult date: 11/30/19 Requesting physician: LAYNE TRONCOSO Reason for consult: other (Critical care) History of present illness: This is a 29-year-old female who states that her sugars been elevated since yesterday. She states that she last used insulin yesterday morning. She states that she has never been treated for MRSA in the past. She states that she has never had a serious infection or a vaginal abscess before. Apparently she has had a vaginal abscess for the last several days. She also complains of bilateral flank pain, stating, "my kidneys hurt". She complains of generalized malaise and weakness. She has polydipsia. She has a history of seizure disorder, schizoaffective disorder and herpes simplex infection. She was admitted with hyperosmolar non ketotic state adn a vaginal abscess. she is on an insulin infusion and I have been consulted for critical management. Thank you Patient was seen and examined. Vitals, labs, medications, chart reviewed. She is resting peacefully in bed and at this time her insulin infusion was just discontinued. ROS: Stated complaint: HIGH BLOOD SUGAR, VAGINAL BOILS Other details as noted in HPI Constitutional: weakness. denies: chills, fever Eyes: denies: eye pain, eye discharge, vision change ENT: denies: ear pain, throat pain Respiratory: denies: cough, shortness of breath, wheezing Cardiovascular: denies: chest pain, palpitations Endocrine: no symptoms reported Gastrointestinal: denies: abdominal pain, diarrhea Genitourinary: other (Vaginal abscess). denies: urgency, dysuria, discharge Musculoskeletal: back pain. denies: joint swelling, arthralgia Skin: denies: rash, lesions Neurological: denies: headache, weakness, paresthesias Psychiatric: denies: anxiety, depression Hematological/Lymphatic: denies: easy bleeding, easy bruising - Past Medical History Hx Hypertension: No Hx Congestive Heart Failure: No Hx Diabetes: Yes (type 2) Hx Deep Vein Thrombosis: No Hx Sickle Cell Disease: No Hx Seizures: Yes (patient seized in labor room prior to ; last dose keppra 10/30 AM) Hx Psychiatric Treatment: Yes (Ptsd schizoaffective anxeity) Hx Asthma: No Hx COPD: No Hx HIV: No - Surgical History Additional Surgical History: umbilical hernia 03/2017 - Social History Smoking Status: Never Smoker Substance Use Type: None Past History Past Medical History: diabetes, seizures, other (Schizoaffective disorder) Past Surgical History: Other ( umbilical hernia 03/2017) Social history: no significant social history Family history: no significant family history Medications and Allergies Allergies Allergy/AdvReac Type Severity Reaction Status Date / Time ondansetron Allergy Hives Verified 11/30/19 04:16 [From Zofran (as hydrochloride)] Home Medications Medication Instructions Recorded Confirmed Last Taken Type Vit,Calc76/Iron/Folic 1 each PO DAILY 05/21/18 06/01/18 05/31/18 History [Pnv 29-1 Tablet] Acyclovir [Zovirax Tab] 1 tab PO QDAY 06/01/18 06/01/18 05/31/18 History Ferrous Sulfate [Feosol 325 MG tab] 325 mg PO BID #60 tablet 06/02/18 Unknown Rx HYDROcodone/APAP 5-325 [[place] 1 each PO Q6HR PRN #30 tablet 06/02/18 Unknown Rx 5-325 mg TAB] Ibuprofen [Motrin 800 MG tab] 800 mg PO Q6H PRN #30 tablet 06/02/18 Unknown Rx Insulin NPH Hum/Reg Insulin Hm 50 units SUB-Q BID #1 vial 06/02/18 Unknown Rx [Humulin 70-30 Vial] Vit-Fe Fumar-FA [ 1 each PO QDAY #30 tablet 06/02/18 Unknown Rx Vitamin] levETIRAcetam [Keppra] 750 mg PO BID #60 tablet 06/02/18 Unknown Rx Acetaminophen/Codeine [Tylenol 1 tab PO Q6H PRN #8 tab 04/09/19 Unknown Rx /Codeine # 3 tab] cephALEXin [Keflex] 500 mg PO Q12H 7 Days #14 cap 04/09/19 Unknown Rx levETIRAcetam [Keppra TAB] 1,000 mg PO BID 15 Days #30 tab 04/09/19 Unknown Rx Active Meds: Active Medications Acyclovir (Zovirax) 800 mg PO QDAY [facility] Dextrose (D50w (25gm) Syringe) 0 ml IV Q30MIN PRN; Protocol PRN Reason: Hypoglycemia Enoxaparin Sodium (Enoxaparin) 40 mg SUB-Q QDAY [facility] Ferrous Sulfate (Feosol) 325 mg PO BID [facility] Vancomycin HCl 1,250 mg/ (Sodium Chloride) 275 mls @ 166.667 mls/hr IV Q8H [facility] Sodium Chloride (Nacl 0.9% 1000 Ml) 1,000 mls @ 125 mls/hr IV DIRECT [facility] Potassium Chloride (Kcl 10meq/100ml) 10 meq in 100 mls @ 100 mls/hr IV Q1H [facility] Stop: 11/30/19 13:59 Piperacillin Sod/Tazobactam Sod (Zosyn/Ns 4.5gm/100ml) 4.5 gm in 100 mls @ 200 mls/hr IV Q8HR [facility]; Protocol Insulin Human Isoph/Insulin Regular (Humulin 70/30) 50 unit SUB-Q BIDDIAB [facility] Insulin Human Regular (Humulin R) 0 units SUB-Q ACHS [facility]; Protocol Levetiracetam (Keppra) 1,000 mg PO BID [facility] Multivitamins/Iron/Calcium ( Vitamin) 1 each PO QDAY [facility] Sodium Chloride (Sodium Chloride Flush Syringe 10 Ml) 10 ml IV BID [facility] Sodium Chloride (Sodium Chloride Flush Syringe 10 Ml) 10 ml IV PRN PRN PRN Reason: LINE FLUSH Physical Examination Vital signs: Vital Signs Temp Pulse Resp BP Pulse Ox 98.6 F 68 20 129/66 97 11/30/19 04:11 11/30/19 04:11 11/30/19 04:11 11/30/19 04:11 11/30/19 04:11 Reviewed vitals General appearance: Present: no acute distress, well-nourished - EENT Eyes: Present: PERRL ENT: hearing intact, clear oral mucosa - Neck Neck: Present: supple, normal ROM - Respiratory Respiratory effort: normal Respiratory: bilateral: CTA - Cardiovascular Heart Sounds: Present: S1 & S2. Absent: rub, click - Extremities Extremities: pulses symmetrical, No edema Peripheral Pulses: within normal limits - Abdominal General gastrointestinal: Present: soft, non-tender, non-distended, normal bowel sounds Female genitourinary: Present: normal - Integumentary Integumentary: Present: clear, warm, dry - Musculoskeletal Musculoskeletal: gait normal, strength equal bilaterally - Psychiatric Psychiatric: appropriate mood/affect, intact judgment & insight - Neurologic Neurologic: CNII-XII intact, moves all extremities Results - Laboratory Findings CBC and BMP: 11/30/19 04:53 05/01/20 04:18 PT/INR, D-dimer PT 12.9 Sec. (12.2-14.9) 11/30/19 06:47 INR 0.96 (0.87-1.13) 11/30/19 06:47 Abnormal lab findings: Abnormal Labs 11/30/19 11/30/19 11/30/19 04:29 04:53 04:53 RBC 5.39 H Hct 45.5 H MCH 27 L [place] % (Auto) 7.9 H Seg Neutrophils % 71.3 H APTT VBG pH Sodium 122 L Potassium Chloride 85.7 L Carbon Dioxide BUN Creatinine Glucose 992 H* POC Glucose > 500 H Calcium Phosphorus 11/30/19 11/30/19 11/30/19 04:53 06:47 06:47 RBC Hct MCH [place] % (Auto) Seg Neutrophils % APTT 23.2 L VBG pH 7.295 L Sodium 125 L Potassium Chloride 89.1 L Carbon Dioxide BUN Creatinine 0.5 L Glucose 827 H* POC Glucose Calcium Phosphorus 5.00 H 11/30/19 11/30/19 11/30/19 08:23 10:01 10:34 RBC Hct MCH [place] % (Auto) Seg Neutrophils % APTT VBG pH Sodium 132 L D Potassium 3.5 L D Chloride Carbon Dioxide 21 L BUN 5 L Creatinine 0.5 L Glucose 504 H* POC Glucose 311 H 250 H Calcium 8.1 L Phosphorus 11/30/19 11:06 RBC Hct MCH [place] % (Auto) Seg Neutrophils % APTT VBG pH Sodium 135 L Potassium Chloride Carbon Dioxide BUN 4 L Creatinine 0.4 L Glucose 342 H POC Glucose Calcium 7.6 L Phosphorus Assessment and Plan Sepsis. Patient meets criteria given the tachypnea, altered mentation and diagnosis of vaginal/labial abscess. Vaginal labial abscess s/p I and D in ED Hyperosmolar hyperglycemic state Acute Toxic metabolic encephalopathy h/o Seizure disorder -Insulin infusion is off -Weight based insulin therapy -Accuchecks , target blood glucose <180mg/dL -Avoid hypoglycemia -Antibiotics, follow up cultures -Resume chronic home medications as clinically indicated -Seizure prophylaxis -VTE prophylaxis -Diabetic education -Wound care to right labial abscess, Surgery consulted Patient is currently off insulin infusion and can be transferred out of the ICU fro ongoing care. Care plan discussed with primary service and RN Patient updated re care plan
--- NOTE | 2019-11-30 13:12 | Consultation ---
History of Present Illness Consult date: 11/30/19 Reason for consult: wound care Requesting physician: LAYNE TRONCOSO Chief complaint: vaginal infection - History of present illness History of present illness: 29yo F with poorly controlled diabetes who presents to the emergency department due to inability to control her sugars. Patient was found to have a right labial abscess that had been there for at least a few days. I&D was performed in the emergency department. Patient reports she is feeling better. We are asked to evaluate the wound for any further care and management. Patient has never had anything like this before. Past History Past Medical History: diabetes, seizures, other (Schizoaffective disorder) Past Surgical History: Other ( umbilical hernia 03/2017) Social history: no significant social history. denies: smoking, alcohol abuse Family history: no significant family history Medications and Allergies Allergies Allergy/AdvReac Type Severity Reaction Status Date / Time ondansetron Allergy Hives Verified 11/30/19 04:16 [From Zofran (as hydrochloride)] Home Medications Medication Instructions Recorded Confirmed Last Taken Type Vit,Calc76/Iron/Folic 1 each PO DAILY 05/21/18 06/01/18 05/31/18 History [Pnv 29-1 Tablet] Acyclovir [Zovirax Tab] 1 tab PO QDAY 06/01/18 06/01/18 05/31/18 History Ferrous Sulfate [Feosol 325 MG tab] 325 mg PO BID #60 tablet 06/02/18 Unknown Rx HYDROcodone/APAP 5-325 [[place] 1 each PO Q6HR PRN #30 tablet 06/02/18 Unknown Rx 5-325 mg TAB] Ibuprofen [Motrin 800 MG tab] 800 mg PO Q6H PRN #30 tablet 06/02/18 Unknown Rx Insulin NPH Hum/Reg Insulin Hm 50 units SUB-Q BID #1 vial 06/02/18 Unknown Rx [Humulin 70-30 Vial] Vit-Fe Fumar-FA [ 1 each PO QDAY #30 tablet 06/02/18 Unknown Rx Vitamin] levETIRAcetam [Keppra] 750 mg PO BID #60 tablet 06/02/18 Unknown Rx Acetaminophen/Codeine [Tylenol 1 tab PO Q6H PRN #8 tab 04/09/19 Unknown Rx /Codeine # 3 tab] cephALEXin [Keflex] 500 mg PO Q12H 7 Days #14 cap 04/09/19 Unknown Rx levETIRAcetam [Keppra TAB] 1,000 mg PO BID 15 Days #30 tab 04/09/19 Unknown Rx Active Meds: Active Medications Acyclovir (Zovirax) 800 mg PO QDAY [facility] Dextrose (D50w (25gm) Syringe) 0 ml IV Q30MIN PRN; Protocol PRN Reason: Hypoglycemia Enoxaparin Sodium (Enoxaparin) 40 mg SUB-Q QDAY [facility] Ferrous Sulfate (Feosol) 325 mg PO BID [facility] Vancomycin HCl 1,250 mg/ (Sodium Chloride) 275 mls @ 166.667 mls/hr IV Q8H [facility] Sodium Chloride (Nacl 0.9% 1000 Ml) 1,000 mls @ 125 mls/hr IV DIRECT [facility] Potassium Chloride (Kcl 10meq/100ml) 10 meq in 100 mls @ 100 mls/hr IV Q1H [facility] Stop: 11/30/19 13:59 Piperacillin Sod/Tazobactam Sod (Zosyn/Ns 4.5gm/100ml) 4.5 gm in 100 mls @ 200 mls/hr IV Q8HR [facility]; Protocol Insulin Human Isoph/Insulin Regular (Humulin 70/30) 50 unit SUB-Q BIDDIAB [facility] Insulin Human Regular (Humulin R) 0 units SUB-Q ACHS [facility]; Protocol Levetiracetam (Keppra) 1,000 mg PO BID [facility] Multivitamins/Iron/Calcium ( Vitamin) 1 each PO QDAY [facility] Sodium Chloride (Sodium Chloride Flush Syringe 10 Ml) 10 ml IV BID [facility] Sodium Chloride (Sodium Chloride Flush Syringe 10 Ml) 10 ml IV PRN PRN PRN Reason: LINE FLUSH Review of Systems - Constitutional no fever, no chills, no chronic pain - Cardiovascular no chest pain, no shortness of breath - Respiratory no cough - Gastrointestinal no abdominal pain, no nausea, no vomiting - Integumentary boils Exam Vital Signs Temp Pulse Resp BP Pulse Ox 98.6 F 68 20 129/66 97 11/30/19 04:11 11/30/19 04:11 11/30/19 04:11 11/30/19 04:11 11/30/19 04:11 - General physical appearance Positive: no distress, no pain, other (appears very tired) - Respiratory Positive: normal expansion, normal respiratory effort - Genitourinary Female Genitourinary: other (Right labia is swollen but soft. Except for the areas of the incision, it is nontender. 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 Wounds are packed. There is no active drainage. Left leg is normal. No evidence of erythema or extension of infection into the perineum) - Neurologic Neurologic: alert and oriented to time, place and person - Psychiatric Psychiatric: appropriate mood/affect, intact judgment & insight, cooperative Results - Labs 11/30/19 04:53 11/30/19 11:06 Abnormal lab results 11/30/19 11/30/19 11/30/19 Range/Units 04:29 04:53 04:53 RBC 5.39 H (3.65-5.03) M/mm3 Hct 45.5 H (30.3-42.9) % MCH 27 L (28-32) pg [place] % (Auto) 7.9 H (0.0-7.3) % Seg Neutrophils % 71.3 H (40.0-70.0) % APTT (24.2-36.6) Sec. VBG pH (7.320-7.420) Sodium 122 L (137-145) mmol/L Potassium (3.6-5.0) mmol/L Chloride 85.7 L (98-107) mmol/L Carbon Dioxide (22-30) mmol/L BUN (7-17) mg/dL Creatinine (0.7-1.2) mg/dL Glucose 992 H* (65-100) mg/dL POC Glucose > 500 H (70-105) Calcium (8.4-10.2) mg/dL Phosphorus (2.5-4.5) mg/dL 11/30/19 11/30/19 11/30/19 Range/Units 04:53 06:47 06:47 RBC (3.65-5.03) M/mm3 Hct (30.3-42.9) % MCH (28-32) pg [place] % (Auto) (0.0-7.3) % Seg Neutrophils % (40.0-70.0) % APTT 23.2 L (24.2-36.6) Sec. VBG pH 7.295 L (7.320-7.420) Sodium 125 L (137-145) mmol/L Potassium (3.6-5.0) mmol/L Chloride 89.1 L (98-107) mmol/L Carbon Dioxide (22-30) mmol/L BUN (7-17) mg/dL Creatinine 0.5 L (0.7-1.2) mg/dL Glucose 827 H* (65-100) mg/dL POC Glucose (70-105) Calcium (8.4-10.2) mg/dL Phosphorus 5.00 H (2.5-4.5) mg/dL 11/30/19 11/30/19 11/30/19 Range/Units 08:23 10:01 10:34 RBC (3.65-5.03) M/mm3 Hct (30.3-42.9) % MCH (28-32) pg [place] % (Auto) (0.0-7.3) % Seg Neutrophils % (40.0-70.0) % APTT (24.2-36.6) Sec. VBG pH (7.320-7.420) Sodium 132 L D (137-145) mmol/L Potassium 3.5 L D (3.6-5.0) mmol/L Chloride (98-107) mmol/L Carbon Dioxide 21 L (22-30) mmol/L BUN 5 L (7-17) mg/dL Creatinine 0.5 L (0.7-1.2) mg/dL Glucose 504 H* (65-100) mg/dL POC Glucose 311 H 250 H (70-105) Calcium 8.1 L (8.4-10.2) mg/dL Phosphorus (2.5-4.5) mg/dL 11/30/19 Range/Units 11:06 RBC (3.65-5.03) M/mm3 Hct (30.3-42.9) % MCH (28-32) pg [place] % (Auto) (0.0-7.3) % Seg Neutrophils % (40.0-70.0) % APTT (24.2-36.6) Sec. VBG pH (7.320-7.420) Sodium 135 L (137-145) mmol/L Potassium (3.6-5.0) mmol/L Chloride (98-107) mmol/L Carbon Dioxide (22-30) mmol/L BUN 4 L (7-17) mg/dL Creatinine 0.4 L (0.7-1.2) mg/dL Glucose 342 H (65-100) mg/dL POC Glucose (70-105) Calcium 7.6 L (8.4-10.2) mg/dL Phosphorus (2.5-4.5) mg/dL Diabetes panel 11/30/19 11/30/19 11/30/19 Range/Units 04:53 06:47 08:23 Sodium 122 L 125 L 132 L D (137-145) mmol/L Potassium 4.0 4.7 3.5 L D (3.6-5.0) mmol/L Chloride 85.7 L 89.1 L 99.1 (98-107) mmol/L Carbon Dioxide 25 22 21 L (22-30) mmol/L BUN 7 7 5 L (7-17) mg/dL Creatinine 0.7 0.5 L 0.5 L (0.7-1.2) mg/dL Glucose 992 H* 827 H* 504 H* (65-100) mg/dL Calcium 9.5 9.5 8.1 L (8.4-10.2) mg/dL AST 8 (5-40) units/L ALT 7 (7-56) units/L Alkaline Phosphatase 118 (35-129) units/L Total Protein 7.2 (6.3-8.2) g/dL Albumin 3.9 (3.9-5) g/dL 11/30/19 Range/Units 11:06 Sodium 135 L (137-145) mmol/L Potassium 4.2 (3.6-5.0) mmol/L Chloride 103.3 (98-107) mmol/L Carbon Dioxide 22 (22-30) mmol/L BUN 4 L (7-17) mg/dL Creatinine 0.4 L (0.7-1.2) mg/dL Glucose 342 H (65-100) mg/dL Calcium 7.6 L (8.4-10.2) mg/dL AST (5-40) units/L ALT (7-56) units/L Alkaline Phosphatase (35-129) units/L Total Protein (6.3-8.2) g/dL Albumin (3.9-5) g/dL Calcium panel 11/30/19 11/30/1920 Range/Units 04:53 06:47 08:23 Calcium 9.5 9.5 8.1 L (8.4-10.2) mg/dL Phosphorus 5.00 H (2.5-4.5) mg/dL Albumin 3.9 (3.9-5) g/dL 11/30/19 Range/Units 11:06 Calcium 7.6 L (8.4-10.2) mg/dL Phosphorus (2.5-4.5) mg/dL Albumin (3.9-5) g/dL Pituitary panel 11/30/19 11/30/19 11/30/19 Range/Units 04:53 06:47 08:23 Sodium 122 L 125 L 132 L D (137-145) mmol/L Potassium 4.0 4.7 3.5 L D (3.6-5.0) mmol/L Chloride 85.7 L 89.1 L 99.1 (98-107) mmol/L Carbon Dioxide 25 22 21 L (22-30) mmol/L BUN 7 7 5 L (7-17) mg/dL Creatinine 0.7 0.5 L 0.5 L (0.7-1.2) mg/dL Glucose 992 H* 827 H* 504 H* (65-100) mg/dL Calcium 9.5 9.5 8.1 L (8.4-10.2) mg/dL 11/30/19 Range/Units 11:06 Sodium 135 L (137-145) mmol/L Potassium 4.2 (3.6-5.0) mmol/L Chloride 103.3 (98-107) mmol/L Carbon Dioxide 22 (22-30) mmol/L BUN 4 L (7-17) mg/dL Creatinine 0.4 L (0.7-1.2) mg/dL Glucose 342 H (65-100) mg/dL Calcium 7.6 L (8.4-10.2) mg/dL Adrenal panel 11/30/19 11/30/19 11/30/19 Range/Units 04:53 06:47 08:23 Sodium 122 L 125 L 132 L D (137-145) mmol/L Potassium 4.0 4.7 3.5 L D (3.6-5.0) mmol/L Chloride 85.7 L 89.1 L 99.1 (98-107) mmol/L Carbon Dioxide 25 22 21 L (22-30) mmol/L BUN 7 7 5 L (7-17) mg/dL Creatinine 0.7 0.5 L 0.5 L (0.7-1.2) mg/dL Glucose 992 H* 827 H* 504 H* (65-100) mg/dL Calcium 9.5 9.5 8.1 L (8.4-10.2) mg/dL Total Bilirubin 0.20 (0.1-1.2) mg/dL AST 8 (5-40) units/L ALT 7 (7-56) units/L Alkaline Phosphatase 118 (35-129) units/L Total Protein 7.2 (6.3-8.2) g/dL Albumin 3.9 (3.9-5) g/dL 11/30/19 Range/Units 11:06 Sodium 135 L (137-145) mmol/L Potassium 4.2 (3.6-5.0) mmol/L Chloride 103.3 (98-107) mmol/L Carbon Dioxide 22 (22-30) mmol/L BUN 4 L (7-17) mg/dL Creatinine 0.4 L (0.7-1.2) mg/dL Glucose 342 H (65-100) mg/dL Calcium 7.6 L (8.4-10.2) mg/dL Total Bilirubin (0.1-1.2) mg/dL AST (5-40) units/L ALT (7-56) units/L Alkaline Phosphatase (35-129) units/L Total Protein (6.3-8.2) g/dL Albumin (3.9-5) g/dL Assessment and Plan - Patient Problems (1) Abscess, vagina Current Visit: Yes Status: Acute Plan to address problem: Pt stable. The biggest challenge will be getting her blood sugars under control. This will be essential to getting the wounds healed. As she is clinically feeling better after the I&D in the ER, we will begin with conservative wound care. I have ordered daily sits baths and [place] packing. I will evaluate the wound over the next couple days. As long as there are no signs of worsening, then we will continue with this care. If something changes, then we may consider further imaging or formal exploration in the operating room. No immediate procedures are necessary at this time. We will follow along. Please call with questions. Time=30min
[2019-11-30] MEDS: PIPERACIL/TAZOBACTA 4.5/NS 100 4.5 GM/100 ML VIAL IV SCH ×2 (13:25→22:58)
[2019-11-30] MEDS: ENOXAPARIN 40 MG/0.4 ML INJ SUB-Q SCH (13:26)
[2019-11-30] MEDS: INSULIN REGULAR, HUMAN 100 UNITS/1 ML SUB-Q SCH ×3 (13:28→22:58)
[2019-11-30 16:18] LABS: BUN/Creatinine Ratio 8; Blood Urea Nitrogen 4 mg/dL (7-17); Hemolysis Index 3
[2019-11-30] MEDS: oxyCODONE /ACETAMINOPHEN 5-325MG TAB PO PRN (16:31)
[2019-11-30] MEDS: VANCOMYCIN 1,250 MG in SODIUM CHLORIDE 0.9% 250ML 250 ML IV SCH (17:35)
[2019-11-30] MEDS: INSULIN NPH/REGULAR 70/30 INJ SUB-Q SCH (18:09)
[2019-11-30] MEDS ORDERED: INSULIN NPH/REGULAR 70/30 INJ SUB-Q SCH (22:00)
[2019-11-30] MEDS ORDERED: NON-FORMULARY EACH (Levetiracetam [Keppra Tab] 1,000 MG) PO SCH (22:00)
[2019-11-30] MEDS: levETIRAcetam 500 MG TAB PO SCH (22:57)
[2019-11-30] MEDS: FERROUS SULFATE 325 MG TAB PO SCH (22:59)
[2019-12-01 00:14] LABS: BUN/Creatinine Ratio 13; Blood Urea Nitrogen 5 mg/dL (7-17); Calcium 8.1 mg/dL (8.4-10.2); Hemolysis Index 4
[2019-12-01] MEDS: oxyCODONE /ACETAMINOPHEN 5-325MG TAB PO PRN ×3 (01:42→14:59)
[2019-12-01] MEDS: VANCOMYCIN 1,250 MG in SODIUM CHLORIDE 0.9% 250ML 250 ML IV SCH ×3 (02:00→19:37)
[2019-12-01] MEDS: PIPERACIL/TAZOBACTA 4.5/NS 100 4.5 GM/100 ML VIAL IV SCH ×3 (05:59→21:30)
[2019-12-01] MEDS: SODIUM CHLORIDE 0.9% 1000 ML 1,000 ML IV SCH ×2 (06:02→19:30)
[2019-12-01 06:45] LABS: BUN/Creatinine Ratio 20; Blood Urea Nitrogen 6 mg/dL (7-17); Calcium 7.8 mg/dL (8.4-10.2); Hemolysis Index 12
--- NOTE | 2019-12-01 07:30 | Progress Note ---
Assessment and Plan Sepsis. Patient meets criteria given the tachypnea, altered mentation and diagnosis of vaginal/labial abscess. Vaginal labial abscess s/p I and D in ED Hyperosmolar hyperglycemic state Acute Toxic metabolic encephalopathy h/o Seizure disorder -Insulin infusion is off -Weight based insulin therapy -Accuchecks , target blood glucose <180mg/dL -Avoid hypoglycemia -Antibiotics, follow up cultures -Resume chronic home medications as clinically indicated -Seizure prophylaxis -VTE prophylaxis -Diabetic education -Wound care to right labial abscess, Surgery consulted Patient is currently off insulin infusion and can be transferred out of the ICU fro ongoing care. Care plan discussed with primary service and RN Patient updated re care plan Subjective Date of service: 12/01/19 Interval history: Follow up for: Objective - Exam Narrative Exam: Reviewed vitals General appearance: Present: no acute distress, well-nourished - EENT Eyes: Present: PERRL ENT: hearing intact, clear oral mucosa - Neck Neck: Present: supple, normal ROM - Respiratory Respiratory effort: normal Respiratory: bilateral: CTA - Cardiovascular Heart Sounds: Present: S1 & S2. Absent: rub, click - Extremities Extremities: pulses symmetrical, No edema Peripheral Pulses: within normal limits - Abdominal General gastrointestinal: Present: soft, non-tender, non-distended, normal bowel sounds Female genitourinary: Present: normal - Integumentary Integumentary: Present: clear, warm, dry - Musculoskeletal Musculoskeletal: gait normal, strength equal bilaterally - Psychiatric Psychiatric: appropriate mood/affect, intact judgment & insight - Neurologic Neurologic: CNII-XII intact, moves all extremities Vital Signs - 12hr 12/01/19 12/01/19 02:27 03:47 Temperature 97.3 F L Pulse Rate 60 Respiratory 20 Rate Blood Pressure 97/52 O2 Sat by Pulse 96 Oximetry CBC and BMP: 11/30/19 04:53 12/01/19 04:18 ABG, PT/INR, D-dimer: PT/INR, D-dimer PT 12.9 Sec. (12.2-14.9) 11/30/19 06:47 INR 0.96 (0.87-1.13) 11/30/19 06:47 Abnormal lab findings: Abnormal Labs 11/30/19 11/30/19 11/30/19 04:29 04:53 04:53 RBC 5.39 H Hct 45.5 H MCH 27 L [place] % (Auto) 7.9 H Seg Neutrophils % 71.3 H APTT VBG pH Sodium 122 L Potassium Chloride 85.7 L Carbon Dioxide BUN Creatinine Glucose 992 H* POC Glucose > 500 H Calcium Phosphorus 11/30/19 11/30/19 11/30/19 04:53 06:47 06:47 RBC Hct MCH [place] % (Auto) Seg Neutrophils % APTT 23.2 L VBG pH 7.295 L Sodium 125 L Potassium Chloride 89.1 L Carbon Dioxide BUN Creatinine 0.5 L Glucose 827 H* POC Glucose Calcium Phosphorus 5.00 H 11/30/19 11/30/19 11/30/19 08:23 10:01 10:34 RBC Hct MCH [place] % (Auto) Seg Neutrophils % APTT VBG pH Sodium 132 L D Potassium 3.5 L D Chloride Carbon Dioxide 21 L BUN 5 L Creatinine 0.5 L Glucose 504 H* POC Glucose 311 H 250 H Calcium 8.1 L Phosphorus 11/30/19 11/30/19 11/30/19 11:06 15:30 16:16 RBC Hct MCH [place] % (Auto) Seg Neutrophils % APTT VBG pH Sodium 135 L 136 L Potassium 3.2 L D Chloride Carbon Dioxide BUN 4 L 4 L Creatinine 0.4 L 0.5 L Glucose 342 H 321 H POC Glucose 298 H Calcium 7.6 L 8.0 L Phosphorus 11/30/19 11/30/19 12/01/19 22:01 23:10 04:18 RBC Hct MCH [place] % (Auto) Seg Neutrophils % APTT VBG pH Sodium Potassium 3.3 L 3.3 L Chloride Carbon Dioxide BUN 5 L 6 L Creatinine 0.4 L 0.3 L Glucose 277 H 212 H POC Glucose 223 H Calcium 8.1 L 7.8 L Phosphorus
--- NOTE | 2019-12-01 09:03 | Progress Note ---
Assessment and Plan - Patient Problems (1) Abscess, vagina Current Visit: Yes Status: Acute Plan to address problem: Pt stable. Blood sugars are better this morning. Wound care needs to be done today. I spoke with the nurse that has her today. I asked that the sitz bath's and Mesalt packing be done today. I will follow-up later today to make sure that it happened. Once the wound care started, I would expect some clinical improvement in 48 to 72 hours. We will follow along. Please call with questions. Time=10min Subjective Date of service: 12/01/19 Patient Reports: Positive: no new complaints, still having pain (less than admission), other (wound packing did not get changed yesterday) Objective Vital Signs - 12hr 12/01/19 12/01/19 12/01/19 02:27 03:47 07:43 Temperature 97.3 F L 98.6 F Pulse Rate 60 68 Respiratory 20 20 Rate Blood Pressure 97/52 111/56 O2 Sat by Pulse 96 97 Oximetry - General physical appearance no distress, no pain, other (did not make eye contact. ) - Respiratory normal expansion, normal respiratory effort - Psychiatric oriented to time, oriented to person, oriented to place, speech is normal, memory intact - Labs 11/30/19 04:53 12/01/19 04:18 Diabetes panel 11/30/19 11/30/19 11/30/19 Range/Units 08:23 11:06 15:30 Sodium 132 L D 135 L 136 L (137-145) mmol/L Potassium 3.5 L D 4.2 3.2 L D (3.6-5.0) mmol/L Chloride 99.1 103.3 102.0 (98-107) mmol/L Carbon Dioxide 21 L 22 23 (22-30) mmol/L BUN 5 L 4 L 4 L (7-17) mg/dL Creatinine 0.5 L 0.4 L 0.5 L (0.7-1.2) mg/dL Glucose 504 H* 342 H 321 H (65-100) mg/dL Calcium 8.1 L 7.6 L 8.0 L (8.4-10.2) mg/dL 11/30/19 12/01/19 Range/Units 23:10 04:18 Sodium 137 138 (137-145) mmol/L Potassium 3.3 L 3.3 L (3.6-5.0) mmol/L Chloride 102.7 105.4 (98-107) mmol/L Carbon Dioxide 26 23 (22-30) mmol/L BUN 5 L 6 L (7-17) mg/dL Creatinine 0.4 L 0.3 L (0.7-1.2) mg/dL Glucose 277 H 212 H (65-100) mg/dL Calcium 8.1 L 7.8 L (8.4-10.2) mg/dL Calcium panel 11/30/19 11/30/19 11/30/19 Range/Units 08:23 11:06 15:30 Calcium 8.1 L 7.6 L 8.0 L (8.4-10.2) mg/dL 11/30/19 12/01/19 Range/Units 23:10 04:18 Calcium 8.1 L 7.8 L (8.4-10.2) mg/dL Pituitary panel 11/30/19 11/30/19 11/30/19 Range/Units 08:23 11:06 15:30 Sodium 132 L D 135 L 136 L (137-145) mmol/L Potassium 3.5 L D 4.2 3.2 L D (3.6-5.0) mmol/L Chloride 99.1 103.3 102.0 (98-107) mmol/L Carbon Dioxide 21 L 22 23 (22-30) mmol/L BUN 5 L 4 L 4 L (7-17) mg/dL Creatinine 0.5 L 0.4 L 0.5 L (0.7-1.2) mg/dL Glucose 504 H* 342 H 321 H (65-100) mg/dL Calcium 8.1 L 7.6 L 8.0 L (8.4-10.2) mg/dL 11/30/19 12/01/19 Range/Units 23:10 04:18 Sodium 137 138 (137-145) mmol/L Potassium 3.3 L 3.3 L (3.6-5.0) mmol/L Chloride 102.7 105.4 (98-107) mmol/L Carbon Dioxide 26 23 (22-30) mmol/L BUN 5 L 6 L (7-17) mg/dL Creatinine 0.4 L 0.3 L (0.7-1.2) mg/dL Glucose 277 H 212 H (65-100) mg/dL Calcium 8.1 L 7.8 L (8.4-10.2) mg/dL Adrenal panel 11/30/19 11/30/19 11/30/19 Range/Units 08:23 11:06 15:30 Sodium 132 L D 135 L 136 L (137-145) mmol/L Potassium 3.5 L D 4.2 3.2 L D (3.6-5.0) mmol/L Chloride 99.1 103.3 102.0 (98-107) mmol/L Carbon Dioxide 21 L 22 23 (22-30) mmol/L BUN 5 L 4 L 4 L (7-17) mg/dL Creatinine 0.5 L 0.4 L 0.5 L (0.7-1.2) mg/dL Glucose 504 H* 342 H 321 H (65-100) mg/dL Calcium 8.1 L 7.6 L 8.0 L (8.4-10.2) mg/dL 11/30/19 12/01/19 Range/Units 23:10 04:18 Sodium 137 138 (137-145) mmol/L Potassium 3.3 L 3.3 L (3.6-5.0) mmol/L Chloride 102.7 105.4 (98-107) mmol/L Carbon Dioxide 26 23 (22-30) mmol/L BUN 5 L 6 L (7-17) mg/dL Creatinine 0.4 L 0.3 L (0.7-1.2) mg/dL Glucose 277 H 212 H (65-100) mg/dL Calcium 8.1 L 7.8 L (8.4-10.2) mg/dL
[2019-12-01] MEDS ORDERED: FOLIC PO SCH (10:00)
[2019-12-01] MEDS ORDERED: IRON PO SCH (10:00)
[2019-12-01] MEDS ORDERED: PRENATAL VIT CALC76 PO SCH (10:00)
[2019-12-01] MEDS: INSULIN REGULAR, HUMAN 100 UNITS/1 ML SUB-Q SCH ×5 (10:18→21:50)
--- NOTE | 2019-12-01 10:23 | Progress Note ---
Assessment and Plan Assessment and plan: Sepsis. Patient meets criteria given the tachypnea, altered mentation and diagnosis of vaginal/labial abscess. Follow-up labial cultures, blood cultures and lactic acid levels. Continue IV antibiotics. Consider ID consultation. Vaginal labial abscess. Surgery consultation. Patient with I&D in the emergency department. Hyperosmolar nonketotic syndrome. Etiology secondary to above. Continue IV insulin drip for now. Patient will be transition to long-acting insulin once stabilized. Toxic metabolic encephalopathy. Etiology secondary to above. Continue to treat underlying causes. 12/01/2019. Patient reports general malaise this morning. No specific complaints. We will continue IV antibiotics and follow-up CBC in the morning. Continue sitz bath's and Mesalt packing per surgery. Anticipate discharge in the next 1 to 2 days. The high probability of a clinically significant, sudden or life threatening deterioration of the [neurological and endocrine] system(s) required my full and direct attention, intervention and personal management. The aggregate critical care time was [32] minutes. This time is in addition to time spent performing reported procedures but includes the following: [x] Data Review and interpretation [x] Patient assessment and monitoring of vital signs [x] Documentation [x] Medication orders and management History Interval history: No new issues overnight. Hospitalist Physical - Constitutional Vitals: Temp Pulse Resp BP Pulse Ox 98.6 F 68 20 111/56 97 12/01/19 07:43 12/01/19 07:43 12/01/19 07:43 12/01/19 07:43 12/01/19 07:43 General appearance: Present: no acute distress, well-nourished - EENT Eyes: Present: PERRL, EOM intact ENT: hearing intact, clear oral mucosa, dentition normal - Neck Neck: Present: supple, normal ROM - Respiratory Respiratory effort: normal Respiratory: bilateral: CTA - Cardiovascular Rhythm: regular Heart Sounds: Present: S1 & S2. Absent: gallop, rub - Extremities Extremities: no ischemia, No edema, Full ROM - Abdominal General gastrointestinal: soft, non-tender, non-distended, normal bowel sounds - Integumentary Integumentary: Present: clear, warm, dry - Neurologic Neurologic: CNII-XII intact, moves all extremities Results - Labs CBC & Chem 7: 11/30/19 04:53 12/01/19 04:18 Labs: Laboratory Last Values WBC 8.7 K/mm3 (4.5-11.0) 11/30/19 04:53 RBC 5.39 M/mm3 (3.65-5.03) H 11/30/19 04:53 Hgb 14.3 gm/dl (10.1-14.3) 11/30/19 04:53 Hct 45.5 % (30.3-42.9) H 11/30/19 04:53 MCV 85 fl (79-97) 11/30/19 04:53 MCH 27 pg (28-32) L 11/30/19 04:53 MCHC 31 % (30-34) 11/30/19 04:53 RDW 14.5 % (13.2-15.2) 11/30/19 04:53 Plt Count 229 K/mm3 (140-440) 11/30/19 04:53 Lymph % (Auto) 19.5 % (13.4-35.0) 11/30/19 04:53 [place] % (Auto) 7.9 % (0.0-7.3) H 11/30/19 04:53 Eos % (Auto) 0.9 % (0.0-4.3) 11/30/19 04:53 Baso % (Auto) 0.4 % (0.0-1.8) 11/30/19 04:53 Lymph # 1.7 K/mm3 (1.2-5.4) 11/30/19 04:53 Rowan # 0.7 K/mm3 (0.0-0.8) 11/30/19 04:53 Eos # 0.1 K/mm3 (0.0-0.4) 11/30/19 04:53 Baso # 0.0 K/mm3 (0.0-0.1) 11/30/19 04:53 Seg Neutrophils % 71.3 % (40.0-70.0) H 11/30/19 04:53 Seg Neutrophils # 6.2 K/mm3 (1.8-7.7) 11/30/19 04:53 PT 12.9 Sec. (12.2-14.9) 11/30/19 06:47 INR 0.96 (0.87-1.13) 11/30/19 06:47 APTT 23.2 Sec. (24.2-36.6) L 11/30/19 06:47 VBG pH 7.295 (7.320-7.420) L 11/30/19 04:53 Sodium 138 mmol/L (137-145) 12/01/19 04:18 Potassium 3.3 mmol/L (3.6-5.0) L 12/01/19 04:18 Chloride 105.4 mmol/L (98-107) 12/01/19 04:18 Carbon Dioxide 23 mmol/L (22-30) 12/01/19 04:18 Anion Gap 13 mmol/L 12/01/19 04:18 BUN 6 mg/dL (7-17) L 12/01/19 04:18 Creatinine 0.3 mg/dL (0.7-1.2) L 12/01/19 04:18 Estimated GFR > 60 ml/min 12/01/19 04:18 BUN/Creatinine Ratio 20 % 12/01/19 04:18 Glucose 212 mg/dL (65-100) H 12/01/19 04:18 POC Glucose 206 (70-105) H 12/01/19 07:56 Lactic Acid 1.40 mmol/L (0.7-2.0) 11/30/19 06:47 Calcium 7.8 mg/dL (8.4-10.2) L 12/01/19 04:18 Phosphorus 5.00 mg/dL (2.5-4.5) H 11/30/19 06:47 Magnesium 1.90 mg/dL (1.7-2.3) 11/30/19 06:47 Total Bilirubin 0.20 mg/dL (0.1-1.2) 11/30/19 04:53 AST 8 units/L (5-40) 11/30/19 04:53 ALT 7 units/L (7-56) 11/30/19 04:53 Alkaline Phosphatase 118 units/L (35-129) 11/30/19 04:53 Total Creatine Kinase 66 units/L (30-135) 11/30/19 06:47 CK-MB (CK-2) 1.1 ng/mL (0.0-4.0) 11/30/19 06:47 CK-MB (CK-2) Rel Index 1.6 (0-4) 11/30/19 06:47 Troponin T < 0.010 ng/mL (0.00-0.029) 11/30/19 06:47 NT-Pro-B Natriuret Pep 61.51 pg/mL (0-450) 11/30/19 06:47 Total Protein 7.2 g/dL (6.3-8.2) 11/30/19 04:53 Albumin 3.9 g/dL (3.9-5) 11/30/19 04:53 Albumin/Globulin Ratio 1.2 % 11/30/19 04:53 Urine Color Straw (Yellow) 11/30/19 04:50 Urine Turbidity Clear (Clear) 11/30/19 04:50 Urine pH 6.0 (5.0-7.0) 11/30/19 04:50 Ur Specific [place] 1.029 (1.003-1.030) 11/30/19 04:50 Urine Protein <15 mg/dl mg/dL (Negative) 11/30/19 04:50 Urine Glucose (UA) >=500 mg/dL (Negative) 11/30/19 04:50 Urine Ketones Neg mg/dL (Negative) 11/30/19 04:50 Urine Blood Lg (Negative) 11/30/19 04:50 Urine Nitrite Neg (Negative) 11/30/19 04:50 Urine Bilirubin Neg (Negative) 11/30/19 04:50 Urine Urobilinogen < 2.0 mg/dL (<2.0) 11/30/19 04:50 Ur Leukocyte Esterase Tr (Negative) 11/30/19 04:50 Urine WBC (Auto) 4.0 /HPF (0.0-6.0) 11/30/19 04:50 Urine RBC (Auto) 4.0 /HPF (0.0-6.0) 11/30/19 04:50 U Epithel Cells (Auto) 5.0 /HPF (0-13.0) 11/30/19 04:50 Urine Mucus Few /HPF 11/30/19 04:50 Blood Type B POSITIVE 11/30/19 15:30 Antibody Screen Negative 11/30/19 15:30 Microbiology: Microbiology 11/30/19 Unknown Peripheral/Venous Blood Culture - Preliminary NO GROWTH AFTER 24 HOURS 11/30/19 Unknown Peripheral/Venous Blood Culture - Preliminary NO GROWTH AFTER 24 HOURS 11/30/19 Unknown Wound - Deep Wound Culture - Preliminary Mercado/IV: Voiding Method Toilet Active Medications - Current Medications Current Medications: Generic Name Dose Route Start Last Admin Trade Name Freq PRN Reason Stop Dose Admin Acyclovir 800 mg 12/01/19 10:00 Zovirax PO QDAY YOJANA Dextrose 0 ml 11/30/19 06:10 D50w (25gm) Syringe IV Q30MIN PRN Hypoglycemia Protocol Enoxaparin Sodium 40 mg 11/30/19 12:00 11/30/19 13:26 Enoxaparin SUB-Q 40 mg QDAY YOJANA Administration Ferrous Sulfate 325 mg 11/30/19 22:00 11/30/19 22:59 Feosol PO 325 mg BID YOJANA Administration Vancomycin HCl 1,250 mg/ 275 mls @ 166.667 mls/hr 11/30/19 17:00 12/01/19 05:33 Sodium Chloride IV Infused Q8H YOJANA Infusion Sodium Chloride 1,000 mls @ 125 mls/hr 11/30/19 09:45 12/01/19 06:02 Nacl 0.9% 1000 Ml IV 125 mls/hr DIRECT YOJANA Administration Piperacillin Sod/Tazobactam Sod 4.5 gm in 100 mls @ 200 mls/hr 11/30/19 14:00 12/01/19 05:59 Zosyn/Ns 4.5gm/100ml IV 200 mls/hr Q8HR YOJANA Administration Protocol Insulin Human Isoph/Insulin Regular 50 unit 11/30/19 17:00 11/30/19 18:09 Humulin 70/30 SUB-Q 50 unit BIDDIAB YOJANA Administration Insulin Human Regular 0 units 11/30/19 12:00 12/01/19 10:18 Humulin R SUB-Q 3 units ACHS YOJANA Administration Protocol Levetiracetam 1,000 mg 11/30/19 22:00 11/30/19 22:57 Keppra PO 1,000 mg BID YOJANA Administration Multivitamins/Iron/Calcium 1 each 12/01/19 10:00 Vitamin PO QDAY YOJANA Oxycodone/Acetaminophen 1 tab 11/30/19 15:52 12/01/19 01:42 Percocet 5/325 PO 1 tab Q4H PRN Administration Pain, Moderate (4-6) Sodium Chloride 10 ml 11/30/19 22:00 11/30/19 22:59 Sodium Chloride Flush Syringe 10 Ml IV 10 ml BID YOJANA Administration Sodium Chloride 10 ml 11/30/19 10:58 Sodium Chloride Flush Syringe 10 Ml IV PRN PRN LINE FLUSH
[2019-12-01] MEDS: ENOXAPARIN 40 MG/0.4 ML INJ SUB-Q SCH (10:25)
[2019-12-01] MEDS: levETIRAcetam 500 MG TAB PO SCH ×2 (10:26→21:40)
[2019-12-01] MEDS: FERROUS SULFATE 325 MG TAB PO SCH ×2 (10:26→21:43)
[2019-12-01] MEDS: INSULIN NPH/REGULAR 70/30 INJ SUB-Q SCH ×3 (10:30→17:25)
[2019-12-01] MEDS: PRENATAL VIT27-FE FUMARATE-FOLIC ACID VIT TAB PO SCH (11:12)
[2019-12-01] MEDS: ACYCLOVIR 800 MG TAB PO SCH (11:12)
[2019-12-01 14:25] LABS: Bacteria,Urine 2+ /HPF (Negative); Bilirubin,Urine NEG (Negative); Blood,Urine LG (Negative); Color,Urine Yellow (Yellow); Mucus,Urine FEW /HPF; Protein,Urine <15 mg/dL mg/dL (Negative); Urobilinogen,Urine < 2.0 mg/dL (<2.0)
[2019-12-01 14:31] LABS: HCG Qualitative,Urine Negative (Negative)
[2019-12-01 14:59] LABS: Amphetamine Screen,Urine PRESUMPTIVE NEGATIVE; Benzodiazepines Screen,Urine PRESUMPTIVE NEGATIVE; Methadone Screen,Urine PRESUMPTIVE NEGATIVE; Opiate Screen,Urine PRESUMPTIVE NEGATIVE
--- NOTE | 2019-12-01 15:08 | Event Note ---
Date: 12/01/19 I return later in the afternoon to see if she had done the wound care. The nurse reported that she did do sits baths but was not allowing for wound packing. I went in and spoke to the patient. She was initially not allowing us to do anything. Eventually the nurse convinced her to allow the wound packing. Examination of the right labia showed the swelling to be decreased. It looked better overall. Both wounds were packed with Mesalt. The wound cavities were small so a minimal amount of Mesalt was necessary. Patient tolerated the pro cedure well. She needs the Sitz baths and wound packing done daily. Will follow up on Wednesday. Please call with questions. time=15min
[2019-12-01 15:12] LABS: Cannabinoid Screen,Urine PRESUMPTIVE POSITIVE; Cocaine Screen,Urine PRESUMPTIVE POSITIVE
--- NOTE | 2019-12-01 21:57 | XRay Report ---
CHEST 1 VIEW INDICATION / CLINICAL INFORMATION: hypertension. COMPARISON: None available. FINDINGS: SUPPORT DEVICES: None. HEART / MEDIASTINUM: No significant abnormality. LUNGS / PLEURA: No significant pulmonary or pleural abnormality. No pneumothorax. ADDITIONAL FINDINGS: No significant additional findings. IMPRESSION: 1. No acute findings. Signer Name: Eros Denny MD Signed: 12/01/2019 9:52 PM Workstation Name: [id number]
[2019-12-02] MEDS ORDERED: METOCLOPRAMIDE 10 MG/2 ML INJ ONE (03:08)
[2019-12-02] MEDS: VANCOMYCIN 1,250 MG in SODIUM CHLORIDE 0.9% 250ML 250 ML IV SCH ×3 (03:15→22:00)
[2019-12-02] MEDS: PIPERACIL/TAZOBACTA 4.5/NS 100 4.5 GM/100 ML VIAL IV SCH ×3 (06:14→22:00)
[2019-12-02] MEDS: INSULIN REGULAR, HUMAN 100 UNITS/1 ML SUB-Q SCH ×4 (08:02→22:11)
[2019-12-02] MEDS: levETIRAcetam 500 MG TAB PO SCH ×2 (09:10→21:59)
[2019-12-02] MEDS: ACYCLOVIR 800 MG TAB PO SCH (09:10)
[2019-12-02] MEDS: ENOXAPARIN 40 MG/0.4 ML INJ SUB-Q SCH (09:10)
[2019-12-02] MEDS: FERROUS SULFATE 325 MG TAB PO SCH ×2 (09:10→21:59)
[2019-12-02] MEDS: PRENATAL VIT27-FE FUMARATE-FOLIC ACID VIT TAB PO SCH (09:10)
[2019-12-02] MEDS: INSULIN NPH/REGULAR 70/30 INJ SUB-Q SCH ×2 (09:11→18:00)
--- NOTE | 2019-12-02 10:40 | Progress Note ---
Assessment and Plan Assessment and plan: Sepsis. Patient meets criteria given the tachypnea, altered mentation and diagnosis of vaginal/labial abscess. Follow-up labial cultures, blood cultures and lactic acid levels. Continue IV antibiotics. Consider ID consultation. Vaginal labial abscess. Surgery consultation. Patient with I&D in the emergency department. Hyperosmolar nonketotic syndrome. Etiology secondary to above. Continue IV insulin drip for now. Patient will be transition to long-acting insulin once stabilized. Toxic metabolic encephalopathy. Etiology secondary to above. Continue to treat underlying causes. 12/01/2019. Patient reports general malaise this morning. No specific complaints. We will continue IV antibiotics and follow-up CBC in the morning. Continue sitz bath's and Mesalt packing per surgery. Anticipate discharge in the next 1 to 2 days. 12/02/2019. Patient states she feels better. Continue IV antibiotics. Surgery would like to continue sitz bath's and Mesalt packing for a couple more days. Wound and blood cultures are essentially negative. History Interval history: No new issues overnight. Hospitalist Physical - Constitutional Vitals: Temp Pulse Resp BP Pulse Ox 99.1 F 67 20 106/51 98 12/02/19 07:42 12/02/19 07:42 12/02/19 07:42 12/02/19 07:42 12/02/19 07:42 General appearance: Present: no acute distress, well-nourished - EENT Eyes: Present: PERRL, EOM intact ENT: hearing intact, clear oral mucosa, dentition normal - Neck Neck: Present: supple, normal ROM - Respiratory Respiratory effort: normal Respiratory: bilateral: CTA - Cardiovascular Rhythm: regular Heart Sounds: Present: S1 & S2. Absent: gallop, rub - Extremities Extremities: no ischemia, No edema, Full ROM - Abdominal General gastrointestinal: soft, non-tender, non-distended, normal bowel sounds - Integumentary Integumentary: Present: clear, warm, dry - Neurologic Neurologic: CNII-XII intact, moves all extremities Results - Labs CBC & Chem 7: 11/30/19 04:53 12/01/19 04:18 Labs: Laboratory Last Values WBC 8.7 K/mm3 (4.5-11.0) 11/30/19 04:53 RBC 5.39 M/mm3 (3.65-5.03) H 11/30/19 04:53 Hgb 14.3 gm/dl (10.1-14.3) 11/30/19 04:53 Hct 45.5 % (30.3-42.9) H 11/30/19 04:53 MCV 85 fl (79-97) 11/30/19 04:53 MCH 27 pg (28-32) L 11/30/19 04:53 MCHC 31 % (30-34) 11/30/19 04:53 RDW 14.5 % (13.2-15.2) 11/30/19 04:53 Plt Count 229 K/mm3 (140-440) 11/30/19 04:53 Lymph % (Auto) 19.5 % (13.4-35.0) 11/30/19 04:53 [place] % (Auto) 7.9 % (0.0-7.3) H 11/30/19 04:53 Eos % (Auto) 0.9 % (0.0-4.3) 11/30/19 04:53 Baso % (Auto) 0.4 % (0.0-1.8) 11/30/19 04:53 Lymph # 1.7 K/mm3 (1.2-5.4) 11/30/19 04:53 [place] # 0.7 K/mm3 (0.0-0.8) 11/30/19 04:53 Eos # 0.1 K/mm3 (0.0-0.4) 11/30/19 04:53 Baso # 0.0 K/mm3 (0.0-0.1) 11/30/19 04:53 Seg Neutrophils % 71.3 % (40.0-70.0) H 11/30/19 04:53 Seg Neutrophils # 6.2 K/mm3 (1.8-7.7) 11/30/19 04:53 PT 12.9 Sec. (12.2-14.9) 11/30/19 06:47 INR 0.96 (0.87-1.13) 11/30/19 06:47 APTT 23.2 Sec. (24.2-36.6) L 11/30/19 06:47 VBG pH 7.295 (7.320-7.420) L 11/30/19 04:53 Sodium 138 mmol/L (137-145) 12/01/19 04:18 Potassium 3.3 mmol/L (3.6-5.0) L 12/01/19 04:18 Chloride 105.4 mmol/L (98-107) 12/01/19 04:18 Carbon Dioxide 23 mmol/L (22-30) 12/01/19 04:18 Anion Gap 13 mmol/L 12/01/19 04:18 BUN 6 mg/dL (7-17) L 12/01/19 04:18 Creatinine 0.3 mg/dL (0.7-1.2) L 12/01/19 04:18 Estimated GFR > 60 ml/min 12/01/19 04:18 BUN/Creatinine Ratio 20 % 12/01/19 04:18 Glucose 212 mg/dL (65-100) H 12/01/19 04:18 POC Glucose 124 (70-105) H 12/02/19 07:52 Lactic Acid 1.40 mmol/L (0.7-2.0) 11/30/19 06:47 Calcium 7.8 mg/dL (8.4-10.2) L 12/01/19 04:18 Phosphorus 5.00 mg/dL (2.5-4.5) H 11/30/19 06:47 Magnesium 1.90 mg/dL (1.7-2.3) 11/30/19 06:47 Total Bilirubin 0.20 mg/dL (0.1-1.2) 11/30/19 04:53 AST 8 units/L (5-40) 11/30/19 04:53 ALT 7 units/L (7-56) 11/30/19 04:53 Alkaline Phosphatase 118 units/L (35-129) 11/30/19 04:53 Total Creatine Kinase 66 units/L (30-135) 11/30/19 06:47 CK-MB (CK-2) 1.1 ng/mL (0.0-4.0) 11/30/19 06:47 CK-MB (CK-2) Rel Index 1.6 (0-4) 11/30/19 06:47 Troponin T < 0.010 ng/mL (0.00-0.029) 11/30/19 06:47 NT-Pro-B Natriuret Pep 61.51 pg/mL (0-450) 11/30/19 06:47 Total Protein 7.2 g/dL (6.3-8.2) 11/30/19 04:53 Albumin 3.9 g/dL (3.9-5) 11/30/19 04:53 Albumin/Globulin Ratio 1.2 % 11/30/19 04:53 Urine Color Yellow (Yellow) 12/01/19 14:00 Urine Turbidity Slightly-cloudy (Clear) 12/01/19 14:00 Urine pH 6.0 (5.0-7.0) 12/01/19 14:00 Ur Specific [place] 1.008 (1.003-1.030) 12/01/19 14:00 Urine Protein <15 mg/dl mg/dL (Negative) 12/01/19 14:00 Urine Glucose (UA) 150 mg/dL (Negative) 12/01/19 14:00 Urine Ketones Neg mg/dL (Negative) 12/01/19 14:00 Urine Blood Lg (Negative) 12/01/19 14:00 Urine Nitrite Neg (Negative) 12/01/19 14:00 Urine Bilirubin Neg (Negative) 12/01/19 14:00 Urine Urobilinogen < 2.0 mg/dL (<2.0) 12/01/19 14:00 Ur Leukocyte Esterase Sm (Negative) 12/01/19 14:00 Urine WBC (Auto) 13.0 /HPF (0.0-6.0) H 12/01/19 14:00 Urine RBC (Auto) 21.0 /HPF (0.0-6.0) 12/01/19 14:00 U Epithel Cells (Auto) 3.0 /HPF (0-13.0) 12/01/19 14:00 Urine Bacteria (Auto) 2+ /HPF (Negative) 12/01/19 14:00 Urine Mucus Few /HPF 12/01/19 14:00 Urine HCG, Qual Negative (Negative) 12/01/19 14:00 Urine Opiates Screen Presumptive negative 12/01/19 14:00 Urine Methadone Screen Presumptive negative 12/01/19 14:00 Ur Barbiturates Screen Presumptive negative 12/01/19 14:00 Ur Phencyclidine Scrn Presumptive negative 12/01/19 14:00 Ur Amphetamines Screen Presumptive negative 12/01/19 14:00 U Benzodiazepines Scrn Presumptive negative 12/01/19 14:00 Urine Cocaine Screen Presumptive positive 12/01/19 14:00 U Marijuana (THC) Screen Presumptive positive 12/01/19 14:00 Drugs of Abuse Note Disclamer 12/01/19 14:00 Blood Type B POSITIVE 11/30/19 15:30 Antibody Screen Negative 11/30/19 15:30 Microbiology: Microbiology 11/30/19 Unknown Peripheral/Venous Blood Culture - Preliminary NO GROWTH AFTER 48 HOURS 11/30/19 Unknown Peripheral/Venous Blood Culture - Preliminary NO GROWTH AFTER 48 HOURS 11/30/19 Unknown Wound - Deep Wound Culture - Preliminary Mercado/IV: Voiding Method Toilet IV Catheter Type [Right INT / Saline Lock Antecubital] Active Medications - Current Medications Current Medications: Generic Name Dose Route Start Last Admin Trade Name Freq PRN Reason Stop Dose Admin Acyclovir 800 mg 12/01/19 10:00 12/02/19 09:10 Zovirax PO 800 mg QDAY YOJANA Administration Dextrose 0 ml 11/30/19 06:10 D50w (25gm) Syringe IV Q30MIN PRN Hypoglycemia Protocol Enoxaparin Sodium 40 mg 11/30/19 12:00 12/02/19 09:10 Enoxaparin SUB-Q 40 mg QDAY YOJANA Administration Ferrous Sulfate 325 mg 11/30/19 22:00 12/02/19 09:10 Feosol PO 325 mg BID YOJANA Administration Sodium Chloride 1,000 mls @ 125 mls/hr 11/30/19 09:45 12/01/19 19:30 Nacl 0.9% 1000 Ml IV 125 mls/hr DIRECT YOJANA Administration Piperacillin Sod/Tazobactam Sod 4.5 gm in 100 mls @ 200 mls/hr 11/30/19 14:00 12/02/19 06:14 Zosyn/Ns 4.5gm/100ml IV Not Given Q8HR YOJANA Protocol Vancomycin HCl 1,250 mg/ 275 mls @ 166.667 mls/hr 12/01/19 20:00 12/02/19 03:15 Sodium Chloride IV 166.667 mls/hr Q8H YOJANA Administration Insulin Human Isoph/Insulin Regular 50 unit 11/30/19 17:00 12/02/19 09:11 Humulin 70/30 SUB-Q 50 unit BIDDIAB YOJANA Administration Insulin Human Regular 0 units 11/30/19 12:00 12/02/19 08:02 Humulin R SUB-Q Not Given ACHS [facility] Protocol Levetiracetam 1,000 mg 11/30/19 22:00 12/02/19 09:10 Keppra PO 1,000 mg BID YOJANA Administration Multivitamins/Iron/Calcium 1 each 12/01/19 10:00 12/02/19 09:10 Vitamin PO 1 each QDAY YOJANA Administration Oxycodone/Acetaminophen 1 tab 11/30/19 15:52 12/01/19 14:59 Percocet 5/325 PO 1 tab Q4H PRN Administration Pain, Moderate (4-6) Sodium Chloride 10 ml 11/30/19 22:00 12/02/19 09:56 Sodium Chloride Flush Syringe 10 Ml IV 10 ml BID YOJANA Administration Sodium Chloride 10 ml 11/30/19 10:58 Sodium Chloride Flush Syringe 10 Ml IV PRN PRN LINE FLUSH
--- NOTE | 2019-12-02 13:04 | Progress Note ---
Assessment and Plan Sepsis Vaginal / Labial abscess Hyperosmolar hyperglycemic state Acute Toxic metabolic encephalopathy Seizure disorder - continue Weight based insulin therapy - continue accuchecks with glycemic control per SSI for target blood glucose < 180mg/dL (Avoid hypoglycemia) - Antibiotics, follow up cultures - Resume chronic home medications as clinically indicated - Seizure prophylaxis - VTE prophylaxis - Diabetic education - Wound care to right labial abscess, Surgery consulted - continue other care per attending / other consultants .... re-evaluate in am & prn Subjective Date of service: 12/02/19 Principal diagnosis: Sepsis; Vaginal/Labial abscess; HONK; Ac Toxic-Met Encephalopathy; Seizures Interval history: Patient is seen today for: Sepsis; Vaginal / Labial abscess; Hyperosmolar hyperglycemic state; Acute Toxic metabolic encephalopathy; Seizure disorder Seen and examined at bedside; 24hour events reviewed; nursing and respiratory care staff consulted; no adverse overnight events reported to me; resting pecacefully in bed; no new issues Objective Vital Signs - 12hr 12/02/19 12/02/19 02:18 07:42 Temperature 99.4 F 99.1 F Pulse Rate 76 67 Respiratory 17 20 Rate Blood Pressure 121/64 106/51 O2 Sat by Pulse 97 98 Oximetry CBC and BMP: 11/30/19 04:53 12/02/19 16:41 ABG, PT/INR, D-dimer: PT/INR, D-dimer PT 12.9 Sec. (12.2-14.9) 11/30/19 06:47 INR 0.96 (0.87-1.13) 11/30/19 06:47 Abnormal lab findings: Abnormal Labs 11/30/19 11/30/19 11/30/19 04:29 04:53 04:53 RBC 5.39 H Hct 45.5 H MCH 27 L [place] % (Auto) 7.9 H Seg Neutrophils % 71.3 H APTT VBG pH Sodium 122 L Potassium Chloride 85.7 L Carbon Dioxide BUN Creatinine Glucose 992 H* POC Glucose > 500 H Calcium Phosphorus Urine WBC (Auto) 11/30/19 11/30/19 11/30/19 04:53 06:47 06:47 RBC Hct MCH [place] % (Auto) Seg Neutrophils % APTT 23.2 L VBG pH 7.295 L Sodium 125 L Potassium Chloride 89.1 L Carbon Dioxide BUN Creatinine 0.5 L Glucose 827 H* POC Glucose Calcium Phosphorus 5.00 H Urine WBC (Auto) 11/30/19 11/30/19 11/30/19 08:23 10:01 10:34 RBC Hct MCH [place] % (Auto) Seg Neutrophils % APTT VBG pH Sodium 132 L D Potassium 3.5 L D Chloride Carbon Dioxide 21 L BUN 5 L Creatinine 0.5 L Glucose 504 H* POC Glucose 311 H 250 H Calcium 8.1 L Phosphorus Urine WBC (Auto) 11/30/19 11/30/19 11/30/19 11:06 15:30 16:16 RBC Hct MCH [place] % (Auto) Seg Neutrophils % APTT VBG pH Sodium 135 L 136 L Potassium 3.2 L D Chloride Carbon Dioxide BUN 4 L 4 L Creatinine 0.4 L 0.5 L Glucose 342 H 321 H POC Glucose 298 H Calcium 7.6 L 8.0 L Phosphorus Urine WBC (Auto) 11/30/19 11/30/19 12/01/19 22:01 23:10 04:18 RBC Hct MCH [place] % (Auto) Seg Neutrophils % APTT VBG pH Sodium Potassium 3.3 L 3.3 L Chloride Carbon Dioxide BUN 5 L 6 L Creatinine 0.4 L 0.3 L Glucose 277 H 212 H POC Glucose 223 H Calcium 8.1 L 7.8 L Phosphorus Urine WBC (Auto) 12/01/19 12/01/19 12/01/19 07:56 11:34 14:00 RBC Hct MCH [place] % (Auto) Seg Neutrophils % APTT VBG pH Sodium Potassium Chloride Carbon Dioxide BUN Creatinine Glucose POC Glucose 206 H 313 H Calcium Phosphorus Urine WBC (Auto) 13.0 H 12/01/19 12/01/19 12/02/19 16:54 20:56 07:52 RBC Hct MCH [place] % (Auto) Seg Neutrophils % APTT VBG pH Sodium Potassium Chloride Carbon Dioxide BUN Creatinine Glucose POC Glucose 191 H 227 H 124 H Calcium Phosphorus Urine WBC (Auto) 12/02/19 11:26 RBC Hct MCH [place] % (Auto) Seg Neutrophils % APTT VBG pH Sodium Potassium Chloride Carbon Dioxide BUN Creatinine Glucose POC Glucose 290 H Calcium Phosphorus Urine WBC (Auto)
[2019-12-02] MEDS: oxyCODONE /ACETAMINOPHEN 5-325MG TAB PO PRN (16:35)
[2019-12-02 17:10] LABS: BUN/Creatinine Ratio 10; Blood Urea Nitrogen 8 mg/dL (7-17); Calcium 8.8 mg/dL (8.4-10.2); Hemolysis Index 5
[2019-12-03] MEDS: VANCOMYCIN 1,250 MG in SODIUM CHLORIDE 0.9% 250ML 250 ML IV SCH ×2 (03:19→12:32)
[2019-12-03] MEDS: SODIUM CHLORIDE 0.9% 1000 ML 1,000 ML IV SCH (03:19)
[2019-12-03] MEDS: PIPERACIL/TAZOBACTA 4.5/NS 100 4.5 GM/100 ML VIAL IV SCH (05:06)
[2019-12-03] MEDS: INSULIN REGULAR, HUMAN 100 UNITS/1 ML SUB-Q SCH ×2 (08:14→12:32)
[2019-12-03 08:18] VITALS: BP 111/67
[2019-12-03] MEDS: INSULIN NPH/REGULAR 70/30 INJ SUB-Q SCH (08:27)
--- NOTE | 2019-12-03 08:54 | Progress Note ---
Assessment and Plan Assessment and plan: Sepsis. Patient meets criteria given the tachypnea, altered mentation and diagnosis of vaginal/labial abscess. Follow-up labial cultures, blood cultures and lactic acid levels. Continue IV antibiotics. Consider ID consultation. Vaginal labial abscess. Surgery consultation. Patient with I&D in the emergency department. Hyperosmolar nonketotic syndrome. Etiology secondary to above. Continue IV insulin drip for now. Patient will be transition to long-acting insulin once stabilized. Toxic metabolic encephalopathy. Etiology secondary to above. Continue to treat underlying causes. 12/01/2019. Patient reports general malaise this morning. No specific complaints. We will continue IV antibiotics and follow-up CBC in the morning. Continue sitz bath's and Mes[place] packing per surgery. Anticipate discharge in the next 1 to 2 days. 12/02/2019. Patient states she feels better. Continue IV antibiotics. Surgery would like to continue sitz bath's and [place] packing for a couple more days. Wound and blood cultures are essentially negative. 12/03/2019. Continue IV antibiotics. Surgery would like to continue sitz bath's and [place] packing for a couple more days. Wound and blood cultures are essentially negative. History Interval history: No new issues overnight. Hospitalist Physical - Constitutional Vitals: Temp Pulse Resp BP Pulse Ox 98.4 F 57 L 18 111/67 99 12/03/19 07:48 12/03/19 07:48 12/03/19 07:48 12/03/19 07:48 12/03/19 07:48 General appearance: Present: no acute distress, well-nourished - EENT Eyes: Present: PERRL, EOM intact ENT: hearing intact, clear oral mucosa, dentition normal - Neck Neck: Present: supple, normal ROM - Respiratory Respiratory effort: normal Respiratory: bilateral: CTA - Cardiovascular Rhythm: regular Heart Sounds: Present: S1 & S2. Absent: gallop, rub - Extremities Extremities: no ischemia, No edema, Full ROM - Abdominal General gastrointestinal: soft, non-tender, non-distended, normal bowel sounds - Integumentary Integumentary: Present: clear, warm, dry - Neurologic Neurologic: CNII-XII intact, moves all extremities Results - Labs CBC & Chem 7: 11/30/19 04:53 12/02/19 16:41 Labs: Laboratory Last Values WBC 8.7 K/mm3 (4.5-11.0) 11/30/19 04:53 RBC 5.39 M/mm3 (3.65-5.03) H 11/30/19 04:53 Hgb 14.3 gm/dl (10.1-14.3) 11/30/19 04:53 Hct 45.5 % (30.3-42.9) H 11/30/19 04:53 MCV 85 fl (79-97) 11/30/19 04:53 MCH 27 pg (28-32) L 11/30/19 04:53 MCHC 31 % (30-34) 11/30/19 04:53 RDW 14.5 % (13.2-15.2) 11/30/19 04:53 Plt Count 229 K/mm3 (140-440) 11/30/19 04:53 Lymph % (Auto) 19.5 % (13.4-35.0) 11/30/19 04:53 Ceiba % (Auto) 7.9 % (0.0-7.3) H 11/30/19 04:53 Eos % (Auto) 0.9 % (0.0-4.3) 11/30/19 04:53 Baso % (Auto) 0.4 % (0.0-1.8) 11/30/19 04:53 Lymph # 1.7 K/mm3 (1.2-5.4) 11/30/19 04:53 Ceiba # 0.7 K/mm3 (0.0-0.8) 11/30/19 04:53 Eos # 0.1 K/mm3 (0.0-0.4) 11/30/19 04:53 Baso # 0.0 K/mm3 (0.0-0.1) 11/30/19 04:53 Seg Neutrophils % 71.3 % (40.0-70.0) H 11/30/19 04:53 Seg Neutrophils # 6.2 K/mm3 (1.8-7.7) 11/30/19 04:53 PT 12.9 Sec. (12.2-14.9) 11/30/19 06:47 INR 0.96 (0.87-1.13) 11/30/19 06:47 APTT 23.2 Sec. (24.2-36.6) L 11/30/19 06:47 VBG pH 7.295 (7.320-7.420) L 11/30/19 04:53 Sodium 140 mmol/L (137-145) 12/02/19 16:41 Potassium 3.6 mmol/L (3.6-5.0) 12/02/19 16:41 Chloride 107.4 mmol/L (98-107) H 12/02/19 16:41 Carbon Dioxide 22 mmol/L (22-30) 12/02/19 16:41 Anion Gap 14 mmol/L 12/02/19 16:41 BUN 8 mg/dL (7-17) 12/02/19 16:41 Creatinine 0.8 mg/dL (0.7-1.2) D 12/02/19 16:41 Estimated GFR > 60 ml/min 12/02/19 16:41 BUN/Creatinine Ratio 10 % 12/02/19 16:41 Glucose 144 mg/dL (65-100) H 12/02/19 16:41 POC Glucose 126 (70-105) H 12/03/19 08:00 Lactic Acid 1.40 mmol/L (0.7-2.0) 11/30/19 06:47 Calcium 8.8 mg/dL (8.4-10.2) 12/02/19 16:41 Phosphorus 5.00 mg/dL (2.5-4.5) H 11/30/19 06:47 Magnesium 1.90 mg/dL (1.7-2.3) 11/30/19 06:47 Total Bilirubin 0.20 mg/dL (0.1-1.2) 11/30/19 04:53 AST 8 units/L (5-40) 11/30/19 04:53 ALT 7 units/L (7-56) 11/30/19 04:53 Alkaline Phosphatase 118 units/L (35-129) 11/30/19 04:53 Total Creatine Kinase 66 units/L (30-135) 11/30/19 06:47 CK-MB (CK-2) 1.1 ng/mL (0.0-4.0) 11/30/19 06:47 CK-MB (CK-2) Rel Index 1.6 (0-4) 11/30/19 06:47 Troponin T < 0.010 ng/mL (0.00-0.029) 11/30/19 06:47 NT-Pro-B Natriuret Pep 61.51 pg/mL (0-450) 11/30/19 06:47 Total Protein 7.2 g/dL (6.3-8.2) 11/30/19 04:53 Albumin 3.9 g/dL (3.9-5) 11/30/19 04:53 Albumin/Globulin Ratio 1.2 % 11/30/19 04:53 Urine Color Yellow (Yellow) 12/01/19 14:00 Urine Turbidity Slightly-cloudy (Clear) 12/01/19 14:00 Urine pH 6.0 (5.0-7.0) 12/01/19 14:00 Ur Specific [place] 1.008 (1.003-1.030) 12/01/19 14:00 Urine Protein <15 mg/dl mg/dL (Negative) 12/01/19 14:00 Urine Glucose (UA) 150 mg/dL (Negative) 12/01/19 14:00 Urine Ketones Neg mg/dL (Negative) 12/01/19 14:00 Urine Blood Lg (Negative) 12/01/19 14:00 Urine Nitrite Neg (Negative) 12/01/19 14:00 Urine Bilirubin Neg (Negative) 12/01/19 14:00 Urine Urobilinogen < 2.0 mg/dL (<2.0) 12/01/19 14:00 Ur Leukocyte Esterase Sm (Negative) 12/01/19 14:00 Urine WBC (Auto) 13.0 /HPF (0.0-6.0) H 12/01/19 14:00 Urine RBC (Auto) 21.0 /HPF (0.0-6.0) 12/01/19 14:00 U Epithel Cells (Auto) 3.0 /HPF (0-13.0) 12/01/19 14:00 Urine Bacteria (Auto) 2+ /HPF (Negative) 12/01/19 14:00 Urine Mucus Few /HPF 12/01/19 14:00 Urine HCG, Qual Negative (Negative) 12/01/19 14:00 Vancomycin Trough 7.3 ug/mL (5.0-20.0) 12/02/19 16:41 Urine Opiates Screen Presumptive negative 12/01/19 14:00 Urine Methadone Screen Presumptive negative 12/01/19 14:00 Ur Barbiturates Screen Presumptive negative 12/01/19 14:00 Ur Phencyclidine Scrn Presumptive negative 12/01/19 14:00 Ur Amphetamines Screen Presumptive negative 12/01/19 14:00 U Benzodiazepines Scrn Presumptive negative 12/01/19 14:00 Urine Cocaine Screen Presumptive positive 12/01/19 14:00 U Marijuana (THC) Screen Presumptive positive 12/01/19 14:00 Drugs of Abuse Note Disclamer 12/01/19 14:00 Blood Type B POSITIVE 11/30/19 15:30 Antibody Screen Negative 11/30/19 15:30 Microbiology: Microbiology 11/30/19 Unknown Peripheral/Venous Blood Culture - Preliminary NO GROWTH AFTER 72 HOURS 11/30/19 Unknown Peripheral/Venous Blood Culture - Preliminary NO GROWTH AFTER 72 HOURS 11/30/19 Unknown Wound - Deep Wound Culture - Preliminary 12/01/19 14:00 Urine,Clean Catch Urine Culture - Preliminary NO GROWTH AFTER 24 HOURS Mercado/IV: Voiding Method Toilet IV Catheter Type [Right INT / Saline Lock Antecubital] Active Medications - Current Medications Current Medications: Generic Name Dose Route Start Last Admin Trade Name Freq PRN Reason Stop Dose Admin Acyclovir 800 mg 12/01/19 10:00 12/02/19 09:10 Zovirax PO 800 mg QDAY YOJANA Administration Dextrose 0 ml 11/30/19 06:10 D50w (25gm) Syringe IV Q30MIN PRN Hypoglycemia Protocol Enoxaparin Sodium 40 mg 11/30/19 12:00 12/02/19 09:10 Enoxaparin SUB-Q 40 mg QDAY YOJANA Administration Ferrous Sulfate 325 mg 11/30/19 22:00 12/02/19 21:59 Feosol PO 325 mg BID YOJANA Administration Sodium Chloride 1,000 mls @ 125 mls/hr 11/30/19 09:45 12/03/19 03:19 Nacl 0.9% 1000 Ml IV 125 mls/hr DIRECT YOJANA Administration Piperacillin Sod/Tazobactam Sod 4.5 gm in 100 mls @ 200 mls/hr 11/30/19 14:00 12/03/19 05:06 Zosyn/Ns 4.5gm/100ml IV 200 mls/hr Q8HR YOJANA Administration Protocol Vancomycin HCl 1,250 mg/ 275 mls @ 166.667 mls/hr 12/01/19 20:00 12/03/19 03:19 Sodium Chloride IV 166.667 mls/hr Q8H YOJANA Administration Insulin Human Isoph/Insulin Regular 50 unit 11/30/19 17:00 12/03/19 08:27 Humulin 70/30 SUB-Q 50 unit BIDDIAB YOJANA Administration Insulin Human Regular 0 units 11/30/19 12:00 12/03/19 08:14 Humulin R SUB-Q Not Given ACHS YOJANA Protocol Levetiracetam 1,000 mg 11/30/19 22:00 12/02/19 21:59 Keppra PO 1,000 mg BID YOJANA Administration Multivitamins/Iron/Calcium 1 each 12/01/19 10:00 12/02/19 09:10 Vitamin PO 1 each QDAY YOJANA Administration Oxycodone/Acetaminophen 1 tab 11/30/19 15:52 12/02/19 16:35 Percocet 5/325 PO 1 tab Q4H PRN Administration Pain, Moderate (4-6) Sodium Chloride 10 ml 11/30/19 22:00 12/02/19 22:00 Sodium Chloride Flush Syringe 10 Ml IV 10 ml BID YOJANA Administration Sodium Chloride 10 ml 11/30/19 10:58 Sodium Chloride Flush Syringe 10 Ml IV PRN PRN LINE FLUSH
[2019-12-03] MEDS: ENOXAPARIN 40 MG/0.4 ML INJ SUB-Q SCH (09:22)
[2019-12-03] MEDS: levETIRAcetam 500 MG TAB PO SCH (09:23)
[2019-12-03] MEDS: FERROUS SULFATE 325 MG TAB PO SCH (09:23)
[2019-12-03] MEDS: PRENATAL VIT27-FE FUMARATE-FOLIC ACID VIT TAB PO SCH (09:23)
[2019-12-03] MEDS: ACYCLOVIR 800 MG TAB PO SCH (09:24)
[2019-12-03] MEDS: oxyCODONE /ACETAMINOPHEN 5-325MG TAB PO PRN (10:28)
== END 2019-12-03 12:13 | disposition left against medical advice (07) | DRG 853 ==
LOC: ED 04:08 → CC1 08:19 → 2B-ACE 15:45
PROVIDERS: ADMIT Hospitalist; ATTEND Hospitalist
PROC: 0U9GXZZ Drainage of Vagina, External Approach (ICD-10-PCS; principal; 2019-11-30)
DX: A41.9 Sepsis, unspecified organism (principal); E11.00 Type 2 diabetes mellitus with hyperosmolarity without nonketotic hyperglycemic-hyperosmolar coma (NKHHC); G92 Toxic encephalopathy; N76.4 Abscess of vulva; G40.909 Epilepsy, unspecified, not intractable, without status epilepticus; F25.9 Schizoaffective disorder, unspecified; N76.0 Acute vaginitis; Z86.14 Personal history of Methicillin resistant Staphylococcus aureus infection; Z88.8 Allergy status to other drugs, medicaments and biological substances; Z79.4 Long term (current) use of insulin; Z79.899 Other long term (current) drug therapy; Z53.29 Procedure and treatment not carried out because of patient's decision for other reasons
CPT/HCPCS: 36415; 71045; 80048; 80053; 80202; 80307; 81001; 81025; 82140; 82550; 82553; 82805; 82962; 83735; 83880; 84100; 84484; 85025; 85610; 85730; 86850; 86900; 86901; 87040; 87086; 87116; 93005; G0378; J0692; J1170; J1650; J1815; J2060; J2543; J2765; J3370; J3480; J7030; J7040; J7050

== ENCOUNTER 2020-04-26 13:16 | Inpatient (IN) | payer SELFPAY ==
--- NOTE | 2020-04-26 14:04 | Emergency Department Report ---
ED General Adult HPI - General Chief complaint: Abdominal Pain Stated complaint: HBS/BODY ACHE PUI?: No Time Seen by Provider: 04/26/20 13:55 Source: patient, EMS ( EMS documentation not available at time of chart dictati on ), RN notes reviewed Mode of arrival: Stretcher Limitations: No Limitations - History of Present Illness Initial comments: The patient was evaluated in the emergency department for symptoms described in the history of present illness. He/she was evaluated in the context of the global COVID-19 pandemic, which necessitated consideration that the patient might be at risk for infection with the virus that causes COVID-19. Institutional protocols and algorithms that pertain to the evaluation of patients at risk for COVID-19 are in a state of rapid change based on information released by regulatory bodies including the CDC and federal and state organizations. These policies and algorithms were followed during the patient's care in the emergency department. Please note that these policies, procedures and recommendations changed on a rapid basis. During the entire history and physical examination, I am poultry service technician and escorted by nurse Rena Canchola The patient is a 29-year-old female. She is not known to myself previously. She has a history of poorly controlled diabetes, her last hemoglobin A1c was 10.6. Patient is living in a local hotel, and is noncompliant with medications. 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 Her last methamphetamine use was 4 days ago. She presents to the ER today with a complaint of abdominal cramping, malaise and fatigue, sensation of vaginal foreign body, tampon, present for 3 months, intermittent shortness of breath, present for months, and intermittent numbness in her bilateral hands and bilateral feet. She denies headache, neck pain, chest pain, she is not sure if she is having dysuria, she is not sure if she is , she is not homicidal or suicidal. -: Gradual, month(s) Location: abdomen, left, right, upper extremity, lower extremity Quality: aching Consistency: intermittent Improves with: none Worsens with: none - Related Data Previous Rx's Medication Instructions Recorded Last Taken Type Insulin NPH Hum/Reg Insulin Hm 50 units SUB-Q BID #1 vial 06/02/18 Unknown Rx [Humulin 70-30 Vial] levETIRAcetam [Keppra] 750 mg PO BID #60 tablet 06/02/18 Unknown Rx Allergies Allergy/AdvReac Type Severity Reaction Status Date / Time ondansetron Allergy Hives Verified 11/30/19 04:16 [From Zofran (as hydrochloride)] ED Review of Systems ROS: Stated complaint: HBS/BODY ACHE Other details as noted in HPI Constitutional: malaise. denies: fever Eyes: denies: eye discharge ENT: denies: congestion Respiratory: shortness of breath. denies: cough Cardiovascular: denies: chest pain Gastrointestinal: abdominal pain Genitourinary: as per HPI Musculoskeletal: arthralgia, myalgia Neurological: weakness Psychiatric: anxiety. denies: homicidal thoughts, suicidal thoughts ED Past Medical Hx - Past Medical History Hx Hypertension: No Hx Congestive Heart Failure: No Hx Diabetes: Yes (type 2) Hx Deep Vein Thrombosis: No Hx Sickle Cell Disease: No Hx Seizures: Yes Hx Psychiatric Treatment: Yes (Ptsd schizoaffective anxiety) Hx Asthma: No Hx COPD: No Hx HIV: No - Surgical History Additional Surgical History: umbilical hernia 03/2017 - Social History Smoking Status: Current Every Day Smoker - Medications Home Medications: Home Medications Medication Instructions Recorded Confirmed Last Taken Type Insulin NPH Hum/Reg Insulin Hm 50 units SUB-Q BID #1 vial 06/02/18 04/26/20 Unknown Rx [Humulin 70-30 Vial] levETIRAcetam [Keppra] 750 mg PO BID #60 tablet 06/02/18 04/26/20 Unknown Rx ED Physical Exam - General Limitations: No Limitations General appearance: alert, anxious - Head Head exam: Present: atraumatic, normocephalic - Eye Eye exam: Present: normal appearance, EOMI. Absent: nystagmus - ENT ENT exam: Present: normal exam, normal orophraynx, mucous membranes moist, normal external ear exam - Neck Neck exam: Present: normal inspection, full ROM. Absent: tenderness, meningismus - Respiratory Respiratory exam: Present: normal lung sounds bilaterally. Absent: respiratory distress, wheezes, rales, rhonchi, stridor - Cardiovascular Cardiovascular Exam: Present: regular rate, normal rhythm, normal heart sounds. Absent: bradycardia, tachycardia, irregular rhythm, systolic murmur, diastolic murmur, rubs, gallop - GI/Abdominal GI/Abdominal exam: Present: soft. Absent: distended, tenderness, guarding, rebound, rigid, pulsatile mass - External exam: Present: normal external exam, other (Chaperoned by nurse Rena Canchola). Absent: erythema, swelling, lesions, lacerations, ecchymosis, bleeding Speculum exam: Present: normal speculum exam - Extremities Exam Extremities exam: Present: full ROM, other (2+ pulses noted in the bilateral upper and lower extremities. There is no palpable cord. negative Homans sign. Muscular compartments are soft. The pelvis is stable.). Absent: normal inspection (Track appiah noted in the right upper extremity in the antecubital fossa, without redness, pus or streaking), calf tenderness - Back Exam Back exam: Present: normal inspection, full ROM. Absent: tenderness, CVA tenderness (R), CVA tenderness (L), paraspinal tenderness, vertebral tenderness - Neurological Exam Neurological exam: Present: alert, other (No facial droop. Tongue midline. Extraocular movements intact bilaterally. Facial sensation intact to light touch in V1, V2, V3 distribution bilaterally. 5 and a 5 strength in 4 extrem ities. Sensation intact to light touch in 4 extremities.). Absent: motor sensory deficit - Psychiatric Psychiatric exam: Present: anxious. Absent: homicidal ideation, suicidal ideation - Skin Skin exam: Present: warm, dry, intact, normal color. Absent: rash ED Course Vital Signs 04/26/20 04/26/20 04/26/20 17:17 18:03 18:10 Temperature Pulse Rate 72 72 70 Respiratory 22 19 21 Rate Blood Pressure 108/62 108/62 Blood Pressure 112/63 [Left] O2 Sat by Pulse 99 97 99 Oximetry 04/26/20 04/26/20 04/26/20 18:21 18:30 18:41 Temperature Pulse Rate 71 69 73 Respiratory 20 21 22 Rate Blood Pressure 113/64 113/64 Blood Pressure [Left] O2 Sat by Pulse 98 97 98 Oximetry 04/26/20 04/26/20 04/26/20 18:51 19:00 19:11 Temperature Pulse Rate 73 74 78 Respiratory 23 23 15 Rate Blood Pressure 115/65 116/69 116/69 Blood Pressure [Left] O2 Sat by Pulse 98 98 Oximetry 04/26/20 04/26/20 04/26/20 19:21 19:25 19:30 Temperature 98.4 F Pulse Rate 71 74 70 Respiratory 21 18 21 Rate Blood Pressure 114/65 116/66 Blood Pressure 114/68 [Left] O2 Sat by Pulse 98 98 Oximetry 04/26/20 04/26/20 04/26/20 19:41 19:51 20:00 Temperature Pulse Rate 77 71 72 Respiratory 15 21 20 Rate Blood Pressure 116/66 116/70 120/69 Blood Pressure [Left] O2 Sat by Pulse 98 99 Oximetry 04/26/20 20:11 Temperature Pulse Rate 75 Respiratory 21 Rate Blood Pressure 120/69 Blood Pressure [Left] O2 Sat by Pulse 97 Oximetry - Reevaluation(s) Reevaluation #1: 04/26/20 14:40 Differential diagnosis, including but not limited to: Noncompliance, hyperglyc emia, diabetic ketoacidosis, hyperosmolar state, dehydration, recreational drug use, vaginal foreign body Pneumonia, urinary tract infection, diabetic neuropathy Assessment and plan: 29-year-old female, who is afebrile, with reassuring vital signs, clinically sober, GCS of 15, moving 4 extremities, and in no acute distress. Check labs, urinalysis, x-ray of the chest, EKG, perform pelvic examination, and reassess. Reevaluation #2: 04/26/20 15:24 Gynecologic examination is performed. No obvious foreign bodies are noted. The patient has cervical motion tenderness and adnexal tenderness. She also appeared to have some discharge. Urine GC chlamydia culture is requested. Urinalysis is pending. Laboratory studies show pseudohyponatremia, anion gap acidosis, and venous pH is also acidotic. Patient meets criteria for hospitalization secondary to metabolic acidosis. We will give her fluids, pain medication, start insulin drip, patient minimal to hospitalization, hospital physician, Dr. Stu Alexander to admit ED Medical Decision Making - Lab Data Result diagrams: 04/26/20 14:10 04/27/20 08:46 Lab Results 04/26/20 04/26/20 Range/Units 14:10 14:10 WBC 11.4 H (4.5-11.0) K/mm3 RBC 5.47 H (3.65-5.03) M/mm3 Hgb 14.8 H (10.1-14.3) gm/dl Hct 45.8 H (30.3-42.9) % MCV 84 (79-97) fl MCH 27 L (28-32) pg MCHC 32 (30-34) % RDW 13.8 (13.2-15.2) % Plt Count 297 (140-440) K/mm3 VBG pH 7.257 L (7.320-7.420) - Radiology Data Radiology results: image reviewed interpreted by me: 1 view x-ray of the chest, interpreted by myself, clear lungs, no pneumothorax, cardiac silhouette unremarkable, unremarkable chest x-ray. Critical Care Time: Yes Critical care time in (mins) excluding proc time.: 35 Critical care attestation.: If time is entered above; I have spent that time in minutes in the direct care of this critically ill patient, excluding procedure time. ED Disposition Clinical Impression: Metabolic acidosis, Noncompliance, Pelvic pain DKA (diabetic ketoacidoses) Qualifiers: Diabetes mellitus type: type 1 Disposition: OP ADMIT IP TO THIS HOSP Is pt being admited?: Yes Does the pt Need Aspirin: No Condition: Serious
[2020-04-26 14:31] LABS: Hematocrit 45.8 % (30.3-42.9); Hemoglobin 14.8 gm/dl (10.1-14.3); Mean Corpuscular HGB Conc 32 % (30-34); Mean Corpuscular Volume 84 fl (79-97); Platelet Count 297 K/mm3 (140-440); Red Blood Count 5.47 M/mm3 (3.65-5.03); Red Cell Distribution Width 13.8 % (13.2-15.2)
--- NOTE | 2020-04-26 14:36 | XRay Report ---
CHEST 1 VIEW INDICATION: dyspnea. COMPARISON: 12/01/2019 FINDINGS: SUPPORT DEVICES: None. HEART: Within normal limits. LUNGS/PLEURA: No acute air space or interstitial disease. ADDITIONAL FINDINGS: None. IMPRESSION: 1. No acute findings. Signer Name: Osie Cadet MD Signed: 04/26/2020 2:32 PM Workstation Name: [id number]
[2020-04-26 14:49] LABS: INR 1.09 (0.87-1.13)
[2020-04-26 15:11] LABS: Alanine Aminotransferase 7 units/L (7-56); Blood Urea Nitrogen 6 mg/dL (7-17); Calcium 8.8 mg/dL (8.4-10.2); Hemolysis Index 20
[2020-04-26 15:14] LABS: BUN/Creatinine Ratio 15
[2020-04-26] MEDS ORDERED: LIDOCAINE-MPF (1%) 10 MG/1 ML VIAL 5 ML INFILTRATI ONE (15:21)
[2020-04-26] MEDS ORDERED: SODIUM CHLORIDE 0.9% 1000 ML 1,000 ML IV ONE (15:21)
[2020-04-26] MEDS ORDERED: MORPHINE 4 MG/1 ML INJ IV ONE (15:21)
[2020-04-26] MEDS ORDERED: DEXTROSE 50% IN WATER (25GM) 50 ML SYRINGE IV PRN ×2 (15:22→22:32)
[2020-04-26] MEDS ORDERED: METOCLOPRAMIDE 10 MG/2 ML INJ IV ONE (15:22)
[2020-04-26] MEDS ORDERED: DOXYCYCLINE 100 MG CAP PO ONE (15:37)
[2020-04-26] MEDS ORDERED: INSULIN REGULAR, HUMAN 100 UNITS in SODIUM CHLORIDE 0.9% 99 ML IV SCH ×2 (16:00→23:00)
[2020-04-26] MEDS: D5W/0.45% NACL/KCL 20 MEQ 20 MEQ/1,000 ML BAG IV SCH (17:36)
[2020-04-26 18:00] LABS: Blood Urea Nitrogen 6 mg/dL (7-17); Calcium 8.3 mg/dL (8.4-10.2); Hemolysis Index 4
[2020-04-26 18:13] LABS: BUN/Creatinine Ratio 12
[2020-04-26 20:38] LABS: Blood Urea Nitrogen 6 mg/dL (7-17); Hemolysis Index 2
[2020-04-26 20:42] LABS: BUN/Creatinine Ratio 20
[2020-04-26] MEDS: HYDROmorphone 1 MG/1 ML INJ IV PRN ×2 (21:22→23:55)
[2020-04-26 22:23] LABS: Blood Urea Nitrogen 6 mg/dL (7-17); Calcium 8.2 mg/dL (8.4-10.2); Hemolysis Index 0
[2020-04-26 22:28] LABS: BUN/Creatinine Ratio 15
[2020-04-26] MEDS ORDERED: ACETAMINOPHEN 325 MG TAB PO PRN (22:29)
[2020-04-26] MEDS ORDERED: ONDANSETRON 4 MG/2 ML INJ IV PRN (22:29)
[2020-04-26] MEDS ORDERED: METOCLOPRAMIDE 10 MG/2 ML INJ IV PRN (22:29)
[2020-04-26] MEDS ORDERED: POTASSIUM CHLORIDE 10 MEQ 10 MEQ/100 ML BAG IV SCH ×2 (23:00)
[2020-04-26] MEDS: FAMOTIDINE 20 MG/2 ML INJ IV SCH (23:35)
[2020-04-26] MEDS: levETIRAcetam 500 MG TAB PO SCH (23:36)
[2020-04-26 23:46] LABS: Blood Urea Nitrogen 6 mg/dL (7-17); Calcium 8.1 mg/dL (8.4-10.2); Hemolysis Index 0
[2020-04-26 23:53] LABS: BUN/Creatinine Ratio 20
[2020-04-27 01:43] LABS: BUN/Creatinine Ratio 20; Blood Urea Nitrogen 6 mg/dL (7-17); Calcium 7.9 mg/dL (8.4-10.2); Hemolysis Index 3
[2020-04-27] MEDS: D5W/0.45% NACL/KCL 20 MEQ 20 MEQ/1,000 ML BAG IV SCH (01:56)
[2020-04-27] MEDS: HYDROmorphone 1 MG/1 ML INJ IV PRN ×3 (03:15→21:13)
[2020-04-27 03:45] LABS: Blood Urea Nitrogen 5 mg/dL (7-17); Calcium 8.1 mg/dL (8.4-10.2); Hemolysis Index 3
[2020-04-27 04:00] LABS: BUN/Creatinine Ratio 17
[2020-04-27] MEDS: HEPARIN 5,000 UNIT/1 ML VIAL SUB-Q SCH ×3 (05:10→21:11)
[2020-04-27 05:45] LABS: Blood Urea Nitrogen 6 mg/dL (7-17); Calcium 8.2 mg/dL (8.4-10.2); Hemolysis Index 0
[2020-04-27 05:53] LABS: BUN/Creatinine Ratio 20
[2020-04-27 07:18] LABS: Blood Urea Nitrogen 5 mg/dL (7-17); Calcium 8.1 mg/dL (8.4-10.2); Hemolysis Index 30
[2020-04-27 07:27] LABS: BUN/Creatinine Ratio 25
--- NOTE | 2020-04-27 07:36 | History and Physical Report ---
History of Present Illness Date of examination: 04/26/20 Date of admission: 04/26/20 15:27 Chief complaint: Nausea vomiting and abdominal discomfort for 1 day High blood glucose levels as per patient History of present illness: 29-year-old -[place] female with history of type 1 diabetes comes in for high blood glucose levels and nausea vomiting and abdominal pain of 1 day duration. Patient says that she has not been taking insulin for the last 3 months. Patient was apparently asymptomatic this 3 months. Patient takes about 40 units of insulin twice a day. Unable to give the name and exact dosage. Very poor historian. No fever or chills. No exposure to coronavirus. Vomited about 4-6 times since yesterday. Abdominal pain is about 6 on a scale of 1-10. Intermittent in nature. Epigastric in location. Patient has a history of seizure disorder and is not taking Keppra adequately. - Past Medical History Hx Diabetes: Yes (type 2) Hx Seizures: Yes Hx Psychiatric Treatment: Yes (Ptsd schizoaffective anxiety) - Surgical History Additional Surgical History: umbilical hernia 03/2017 - Social History Smoking Status: Current Every Day Smoker Family history Htn - Medications Home Medications: Home Medications Medication Instructions Recorded Confirmed Last Taken Type Vit,Calc76/Iron/Folic 1 each PO DAILY 05/21/18 06/01/18 05/31/18 History [Pnv 29-1 Tablet] Acyclovir [Zovirax Tab] 1 tab PO QDAY 06/01/18 06/01/18 05/31/18 History Ferrous Sulfate [Feosol 325 MG tab] 325 mg PO BID #60 tablet 06/02/18 Unknown Rx HYDROcodone/APAP 5-325 [Imperial 1 each PO Q6HR PRN #30 tablet 06/02/18 Unknown Rx 5-325 mg TAB] Ibuprofen [Motrin 800 MG tab] 800 mg PO Q6H PRN #30 tablet 06/02/18 Unknown Rx Insulin NPH Hum/Reg Insulin Hm 50 units SUB-Q BID #1 vial 06/02/18 Unknown Rx [Humulin 70-30 Vial] Vit-Fe Fumar-FA [ 1 each PO QDAY #30 tablet 06/02/18 Unknown Rx Vitamin] levETIRAcetam [Keppra] 750 mg PO BID #60 tablet 06/02/18 Unknown Rx Acetaminophen/Codeine [Tylenol 1 tab PO Q6H PRN #8 tab 04/09/19 Unknown Rx /Codeine # 3 tab] cephALEXin [Keflex] 500 mg PO Q12H 7 Days #14 cap 04/09/19 Unknown Rx levETIRAcetam [Keppra TAB] 1,000 mg PO BID 15 Days #30 tab 04/09/19 Unknown Rx Review of Systems ROS: Stated complaint: HBS/BODY ACHE Other details as noted in HPI Constitutional: malaise. denies: fever Eyes: denies: eye discharge ENT: denies: congestion Respiratory: shortness of breath. denies: cough Cardiovascular: denies: chest pain Gastrointestinal: abdominal pain Genitourinary: as per HPI Musculoskeletal: arthralgia, myalgia Neurological: weakness Psychiatric: anxiety. denies: homicidal thoughts, suicidal thoughts Medications and Allergies Allergies Allergy/AdvReac Type Severity Reaction Status Date / Time ondansetron Allergy Hives Verified 11/30/19 04:16 [From Zofran (as hydrochloride)] Home Medications Medication Instructions Recorded Confirmed Last Taken Type Insulin NPH Hum/Reg Insulin Hm 50 units SUB-Q BID #1 vial 06/02/18 04/26/20 Unknown Rx [Humulin 70-30 Vial] levETIRAcetam [Keppra] 750 mg PO BID #60 tablet 06/02/18 04/26/20 Unknown Rx Active Meds: Active Medications Acetaminophen (Tylenol) 650 mg PO Q4H PRN PRN Reason: Pain MILD(1-3)/Fever >100.5/VIVAS Dextrose (D50w (25gm) Syringe) 0 ml IV Q30MIN PRN; Protocol PRN Reason: Hypoglycemia Famotidine (Pepcid) 20 mg IV BID [facility] Last Admin: 04/26/20 23:35 Dose: 20 mg Documented by: Heparin Sodium (Porcine) (Heparin) 5,000 unit SUB-Q Q8HR [facility] Last Admin: 04/27/20 05:10 Dose: 5,000 unit Documented by: Hydromorphone HCl (Dilaudid) 0.5 mg IV Q3H PRN PRN Reason: Pain , Severe (7-10) Last Admin: 04/27/20 06:39 Dose: 0.5 mg Documented by: Potassium Chloride/Dextrose/Sod Cl (D5w/0.45% Nacl/Kcl 20 Meq) 20 meq in 1,000 mls @ 125 mls/hr IV DIRECT YOJANA Last Admin: 04/27/20 01:56 Dose: 125 mls/hr Documented by: Insulin Human Regular 100 (units/ Sodium Chloride) 100 mls @ 1 mls/hr IV TITR YOJANA; Protocol Last Titration: 04/27/20 06:37 Dose: 2 units/hr, 2 mls/hr Documented by: Levetiracetam (Keppra) 750 mg PO BID YOJANA Last Admin: 04/26/20 23:36 Dose: 750 mg Documented by: Metoclopramide HCl (Reglan) 10 mg IV Q6H PRN PRN Reason: Nausea And Vomiting Oxycodone/Acetaminophen (Percocet 5/325) 1 tab PO Q6H PRN PRN Reason: Pain, Moderate (4-6) Sodium Chloride (Sodium Chloride Flush Syringe 10 Ml) 10 ml IV BID YOJANA Sodium Chloride (Sodium Chloride Flush Syringe 10 Ml) 10 ml IV PRN PRN PRN Reason: LINE FLUSH Exam - Constitutional Vitals: Temp Pulse Resp BP Pulse Ox 98.4 F 69 16 96/56 97 04/27/20 03:30 04/27/20 05:00 04/27/20 05:00 04/27/20 05:00 04/27/20 05:00 General appearance: Present: mild distress, well-nourished - EENT Eyes: Present: PERRL ENT: hearing intact, clear oral mucosa - Neck Neck: Present: supple, normal ROM - Respiratory Respiratory effort: normal Respiratory: bilateral: CTA - Cardiovascular Heart rate: 78 Rhythm: regular Heart Sounds: Present: S1 & S2. Absent: rub, click - Extremities Extremities: no ischemia, pulses intact, pulses symmetrical, No edema Peripheral Pulses: within normal limits - Abdominal General gastrointestinal: Present: soft, non-tender, non-distended, normal bowel sounds Female genitourinary: Present: normal - Integumentary Integumentary: Present: clear, warm, dry - Musculoskeletal Musculoskeletal: gait normal, strength equal bilaterally - Psychiatric Psychiatric: appropriate mood/affect, intact judgment & insight - Neurologic Neurologic: CNII-XII intact, moves all extremities - Allied Health Allied health notes reviewed: nursing, case management Results - Labs CBC & Chem 7: 04/26/20 14:10 04/27/20 06:50 Labs: Laboratory Last Values WBC 11.4 K/mm3 (4.5-11.0) H 04/26/20 14:10 RBC 5.47 M/mm3 (3.65-5.03) H 04/26/20 14:10 Hgb 14.8 gm/dl (10.1-14.3) H 04/26/20 14:10 Hct 45.8 % (30.3-42.9) H 04/26/20 14:10 MCV 84 fl (79-97) 04/26/20 14:10 MCH 27 pg (28-32) L 04/26/20 14:10 MCHC 32 % (30-34) 04/26/20 14:10 RDW 13.8 % (13.2-15.2) 04/26/20 14:10 Plt Count 297 K/mm3 (140-440) 04/26/20 14:10 PT 14.2 Sec. (12.2-14.9) 04/26/20 14:10 INR 1.09 (0.87-1.13) 04/26/20 14:10 VBG pH 7.257 (7.320-7.420) L 04/26/20 14:10 Sodium 132 mmol/L (137-145) L 04/27/20 06:50 Potassium 3.8 mmol/L (3.6-5.0) 04/27/20 06:50 Chloride 101.1 mmol/L (98-107) 04/27/20 06:50 Carbon Dioxide 21 mmol/L (22-30) L 04/27/20 06:50 Anion Gap 14 mmol/L 04/27/20 06:50 BUN 5 mg/dL (7-17) L 04/27/20 06:50 Creatinine 0.2 mg/dL (0.6-1.2) L 04/27/20 06:50 Estimated GFR > 60 ml/min 04/27/20 06:50 BUN/Creatinine Ratio 25 % 04/27/20 06:50 Glucose 120 mg/dL (65-100) H 04/27/20 06:50 POC Glucose 126 (70-105) H 04/27/20 06:52 Hemoglobin A1c 19.4 % (4-6) H 04/26/20 22:57 Calcium 8.1 mg/dL (8.4-10.2) L 04/27/20 06:50 Phosphorus 1.80 mg/dL (2.5-4.5) L 04/26/20 22:57 Magnesium 1.50 mg/dL (1.7-2.3) L 04/26/20 22:57 Total Bilirubin 0.50 mg/dL (0.1-1.2) 04/26/20 14:10 AST 8 units/L (5-40) 04/26/20 14:10 ALT 7 units/L (7-56) 04/26/20 14:10 Alkaline Phosphatase 86 units/L (35-129) 04/26/20 14:10 Total Creatine Kinase 37 units/L (30-135) 04/26/20 14:10 Total Protein 7.0 g/dL (6.3-8.2) 04/26/20 14:10 Albumin 3.0 g/dL (3.9-5) L 04/26/20 14:10 Albumin/Globulin Ratio 0.8 % 04/26/20 14:10 TSH 0.829 mlU/mL (0.270-4.200) 04/26/20 14:10 HCG, Qual Negative (Negative) 04/26/20 Unknown Salicylates < 0.3 mg/dL (2.8-20.0) L 04/26/20 14:10 Acetaminophen 5.0 ug/mL (10.0-30.0) L 04/26/20 14:10 Plasma/Serum Alcohol < 0.01 % (0-0.07) 04/26/20 14:10 Short CBC 04/26/20 Range/Units 14:10 WBC 11.4 H (4.5-11.0) K/mm3 Hgb 14.8 H (10.1-14.3) gm/dl Hct 45.8 H (30.3-42.9) % Plt Count 297 (140-440) K/mm3 BMP 04/26/20 04/26/20 04/26/20 14:10 17:32 19:10 Sodium 127 L 132 L 132 L Potassium 4.4 3.7 3.4 L Chloride 94.2 L 99.7 100.8 Carbon Dioxide 9 L* 15 L 15 L BUN 6 L 6 L 6 L Creatinine 0.4 L 0.5 L 0.3 L Glucose 299 H 235 H 188 H Calcium 8.8 8.3 L 8.0 L 04/26/20 04/26/20 04/27/20 21:14 22:57 00:53 Sodium 134 L 133 L 134 L Potassium 3.5 L 3.9 3.7 Chloride 102.1 101.9 103.9 Carbon Dioxide 17 L 16 L 17 L BUN 6 L 6 L 6 L Creatinine 0.4 L 0.3 L 0.3 L Glucose 191 H 214 H 197 H Calcium 8.2 L 8.1 L 7.9 L 04/27/20 04/27/20 04/27/20 03:17 04:53 06:50 Sodium 133 L 136 L 132 L Potassium 3.5 L 3.7 3.8 Chloride 101.5 101.6 101.1 Carbon Dioxide 20 L 21 L 21 L BUN 5 L 6 L 5 L Creatinine 0.3 L 0.3 L 0.2 L Glucose 110 H 128 H 120 H Calcium 8.1 L 8.2 L 8.1 L Cardiac Enzymes 04/26/20 Range/Units 14:10 Total Creatine Kinase 37 (30-135) units/L Liver Function 04/26/20 Range/Units 14:10 Total Bilirubin 0.50 (0.1-1.2) mg/dL AST 8 (5-40) units/L ALT 7 (7-56) units/L Alkaline Phosphatase 86 (35-129) units/L Albumin 3.0 L (3.9-5) g/dL Mercado/IV: IV Catheter Type [Left Wrist] INT / Saline Lock IV Catheter Type [Left INT / Saline Lock Antecubital] Assessment and Plan Assessment and plan: Critical care statement The high probability OF a clinically significant sudden or life-threatening deterioration of the cardiorespiratory system and endocrine system required my full and direct attention, intervention and postoperative management. The aggre gate critical care time was 40 minutes. The time is in addition to time spent performing reported procedures but includes the followin: Data review and interpretation 2: Patient assessment and monitoring of vital signs 3: Documentation 4:: Medication orders and management Advance Directives: Yes (Full code) VTE prophylaxis?: Chemical Plan of care discussed with patient/family: Yes - Patient Problems (1) DKA (diabetic ketoacidoses) Current Visit: Yes Status: Acute Qualifiers: Diabetes mellitus type: type 1 Plan to address problem: Patient started on insulin drip and DKA protocol Frequent BMPs IV fluids Register In [place]cery consult (2) Metabolic acidosis Current Visit: Yes Status: Acute Plan to address problem: IV insulin and IV fluids for now Bicarb if necessary (3) Seizure disorder Onset Date: 06/01/18 Current Visit: No Status: Chronic Plan to address problem: Continue Keppra 750 every 12 Counseled about compliance (4) Hyponatremia Current Visit: Yes Status: Acute Plan to address problem: Should correct with correction of blood glucose levels (5) Nicotine dependence Current Visit: Yes Status: Chronic Qualifiers: Nicotine product type: cigarettes Plan to address problem: Counseled and started on NicoDerm patch (6) DVT prophylaxis Current Visit: Yes Status: Acute Plan to address problem: On heparin and GI prophylaxis
[2020-04-27] MEDS ORDERED: DEXTROSE 50% IN WATER (25GM) 50 ML SYRINGE IV PRN (07:55)
--- NOTE | 2020-04-27 08:00 | Event Note ---
Date: 04/27/20 Anion Gap closed. Stopped insulin drip and ordered CC Diet. Per patient takes 32 units BID of Novolin. If the charting is correct. Only got about 20 units of insulin overnight. Did not start her home dose and that is not even consistent with what is documented at her last discharge back in October. Elected to start 15 BID of NPH and high dose sliding scale. If she tolerates PO, can transition to floor this morning. Breakfast is on the way. Will sign off.
--- NOTE | 2020-04-27 08:15 | Progress Note ---
Assessment and Plan Assessment and plan: -- DKA (diabetic ketoacidoses) Current Visit: Yes Status: Acute Plan to address problem: Patient on insulin drip and DKA protocol Blood sugars reasonable level, anion gap closed Transition to long-acting insulin, Accu-Cheks q. before meals and at bedtime Change IV fluids to normal saline. start ADA diet with breakfast Diabetic education, diabetic diet/nutrition education Closely monitor blood sugars, HbA1c 19.4 Transfer out of ICU to [facility] in 1 to 2 hours if stable --Severe metabolic acidosis, due to DKA Current Visit: Yes Status: Acute Plan to address problem: Significant improvement Continue IV fluids, monitor and treat hyperglycemia --History of seizure disorder Onset Date: 06/01/18 Current Visit: No Status: Chronic Plan to address problem: Seizure precautions ,continue Keppra 750 every 12 Ativan as needed, do not drive until cleared by PMD --Severe hyponatremia/pseudohyponatremia Current Visit: Yes Status: Acute Plan to address problem: Due to hyperglycemia , as blood sugars levels are controlled Sodium levels will come down Monitor electrolytes --Ongoing tobacco use Current Visit: Yes Status: Chronic Plan to address problem: Smoking cessation counseling done Risks and consequences of chronic tobacco use Discussed with the patient, verbalized understanding. Nicotine patch as needed --lower abdominal pain Current Visit: Yes Status: Chronic Plan to address problem: IV fluids, pain medications, CT abdomen and pelvis --Medical noncompliance; Patient strongly advised to comply with medications diet follow-up visits Discussed in detail the risks and complications of uncontrolled blood sugars Explained to the patient, verbalized understanding --DVT prophylaxis Current Visit: Yes Status: Acute. Plan to address problem: On heparin and GI prophylaxisClosely monitor the patient and adjust management as needed The high probability of a clinically significant, sudden or life threatening deterioration of the [endocrine, metabolic, infectious] system(s) required my full and direct attention, intervention and personal management. The aggregate critical care time was [34] minutes. This time is in addition to time spent performing reported procedures but includes the following: [x] Data Review and interpretation [x] Patient assessment and monitoring of vital signs [x] Documentation [x] Medication orders and management We will follow the CT abdomen and pelvis and address accordingly Plan of care reviewed with the patient and her nurse. Patient may be transferred out of ICU to [facility] in 1 to 2 hours if stable History Interval history: I have seen and examined the patient at the bedside in ICU this morning Patient's chart and medications reviewed Patient was admitted with diabetic ketoacidosis and abdominal pain On insulin drip, patient's blood sugars reasonable level Anion gap closed, acidosis improved Insulin drip discontinued, transition to long-acting insulin Patient complains of lower abdominal pain Afebrile Vital signs noted Hospitalist Physical - Constitutional Vitals: Temp Pulse Resp BP Pulse Ox 98.4 F 69 16 96/56 97 04/27/20 03:30 04/27/20 05:00 04/27/20 05:00 04/27/20 05:00 04/27/20 05:00 General appearance: Present: mild distress, well-nourished - EENT Eyes: Present: PERRL, EOM intact - Neck Neck: Present: supple, normal ROM - Respiratory Respiratory effort: normal Respiratory: bilateral: diminished, negative: rales, rhonchi, wheezing - Cardiovascular Rhythm: regular Heart Sounds: Present: S1 & S2 - Extremities Extremities: no ischemia, No edema - Abdominal General gastrointestinal: soft, tender (Vague tenderness lower abdomen, no guarding or rigidity), non-distended, normal bowel sounds - Integumentary Integumentary: Present: clear, warm - Psychiatric Psychiatric: appropriate mood/affect, cooperative - Neurologic Neurologic: CNII-XII intact, moves all extremities Results - Labs CBC & Chem 7: 04/26/20 14:10 04/27/20 08:46 Labs: Laboratory Last Values WBC 11.4 K/mm3 (4.5-11.0) H 04/26/20 14:10 RBC 5.47 M/mm3 (3.65-5.03) H 04/26/20 14:10 Hgb 14.8 gm/dl (10.1-14.3) H 04/26/20 14:10 Hct 45.8 % (30.3-42.9) H 04/26/20 14:10 MCV 84 fl (79-97) 04/26/20 14:10 MCH 27 pg (28-32) L 04/26/20 14:10 MCHC 32 % (30-34) 04/26/20 14:10 RDW 13.8 % (13.2-15.2) 04/26/20 14:10 Plt Count 297 K/mm3 (140-440) 04/26/20 14:10 PT 14.2 Sec. (12.2-14.9) 04/26/20 14:10 INR 1.09 (0.87-1.13) 04/26/20 14:10 VBG pH 7.257 (7.320-7.420) L 04/26/20 14:10 Sodium 132 mmol/L (137-145) L 04/27/20 06:50 Potassium 3.8 mmol/L (3.6-5.0) 04/27/20 06:50 Chloride 101.1 mmol/L (98-107) 04/27/20 06:50 Carbon Dioxide 21 mmol/L (22-30) L 04/27/20 06:50 Anion Gap 14 mmol/L 04/27/20 06:50 BUN 5 mg/dL (7-17) L 04/27/20 06:50 Creatinine 0.2 mg/dL (0.6-1.2) L 04/27/20 06:50 Estimated GFR > 60 ml/min 04/27/20 06:50 BUN/Creatinine Ratio 25 % 04/27/20 06:50 Glucose 120 mg/dL (65-100) H 04/27/20 06:50 POC Glucose 156 (70-105) H 04/27/20 07:57 Hemoglobin A1c 19.4 % (4-6) H 04/26/20 22:57 Calcium 8.1 mg/dL (8.4-10.2) L 04/27/20 06:50 Phosphorus 1.80 mg/dL (2.5-4.5) L 04/26/20 22:57 Magnesium 1.50 mg/dL (1.7-2.3) L 04/26/20 22:57 Total Bilirubin 0.50 mg/dL (0.1-1.2) 04/26/20 14:10 AST 8 units/L (5-40) 04/26/20 14:10 ALT 7 units/L (7-56) 04/26/20 14:10 Alkaline Phosphatase 86 units/L (35-129) 04/26/20 14:10 Total Creatine Kinase 37 units/L (30-135) 04/26/20 14:10 Total Protein 7.0 g/dL (6.3-8.2) 04/26/20 14:10 Albumin 3.0 g/dL (3.9-5) L 04/26/20 14:10 Albumin/Globulin Ratio 0.8 % 04/26/20 14:10 TSH 0.829 mlU/mL (0.270-4.200) 04/26/20 14:10 HCG, Qual Negative (Negative) 04/26/20 Unknown Salicylates < 0.3 mg/dL (2.8-20.0) L 04/26/20 14:10 Acetaminophen 5.0 ug/mL (10.0-30.0) L 04/26/20 14:10 Plasma/Serum Alcohol < 0.01 % (0-0.07) 04/26/20 14:10 Mercado/IV: IV Catheter Type [Left Wrist] INT / Saline Lock IV Catheter Type [Left INT / Saline Lock Antecubital] Active Medications - Current Medications Current Medications: Generic Name Dose Route Start Last Admin Trade Name Freq PRN Reason Stop Dose Admin Acetaminophen 650 mg 04/26/20 22:29 Tylenol PO Q4H PRN Pain MILD(1-3)/Fever >100.5/VIVAS Dextrose 50 ml 04/27/20 07:55 D50w (25gm) Syringe IV Q30MIN PRN Hypoglycemia Protocol Famotidine 20 mg 04/26/20 23:00 04/26/20 23:35 Pepcid IV 20 mg BID YOJANA Administration Heparin Sodium (Porcine) 5,000 unit 04/27/20 06:00 04/27/20 05:10 Heparin SUB-Q 5,000 unit Q8HR YOJANA Administration Hydromorphone HCl 0.5 mg 04/26/20 20:48 04/27/20 06:39 Dilaudid IV 0.5 mg Q3H PRN Administration Pain , Severe (7-10) Sodium Chloride 1,000 mls @ 100 mls/hr 04/27/20 08:15 Nacl 0.9% 1000 Ml IV DIRECT YOJANA Insulin Human NPH 15 unit 04/27/20 09:00 Humulin N SUB-Q BIDDIAB YOJANA Insulin Human Regular 0 unit 04/27/20 11:30 Humulin R SUB-Q ACHS [facility] Protocol Levetiracetam 750 mg 04/26/20 23:00 04/26/20 23:36 Keppra PO 750 mg BID YOJANA Administration Metoclopramide HCl 10 mg 04/26/20 22:29 Reglan IV Q6H PRN Nausea And Vomiting Nicotine 14 mg 04/27/20 10:00 Habitrol TD QDAY [facility] Oxycodone/Acetaminophen 1 tab 04/26/20 22:29 Percocet 5/325 PO Q6H PRN Pain, Moderate (4-6) Sodium Chloride 10 ml 04/27/20 10:00 Sodium Chloride Flush Syringe 10 Ml IV BID [facility] Sodium Chloride 10 ml 04/26/20 22:29 Sodium Chloride Flush Syringe 10 Ml IV PRN PRN LINE FLUSH
[2020-04-27] MEDS ORDERED: INSULIN NPH, HUMAN 100 UNIT/1 ML SUB-Q SCH (09:00)
[2020-04-27] MEDS: FAMOTIDINE 20 MG/2 ML INJ IV SCH ×2 (09:04→21:12)
[2020-04-27] MEDS: NICOTINE 14 MG/24 HR PATCH TD SCH (09:04)
[2020-04-27] MEDS: levETIRAcetam 500 MG TAB PO SCH ×2 (09:06→21:12)
[2020-04-27] MEDS: oxyCODONE /ACETAMINOPHEN 5-325MG TAB PO PRN ×2 (09:06→15:33)
[2020-04-27 09:26] LABS: Blood Urea Nitrogen 5 mg/dL (7-17); Calcium 8.2 mg/dL (8.4-10.2); Hemolysis Index 0
[2020-04-27 09:27] LABS: BUN/Creatinine Ratio 17
[2020-04-27] MEDS ORDERED: SODIUM PHOSPHATE 30 MMOL in SODIUM CHLORIDE 0.9% 500 ML 500 ML IV ONE (11:00)
[2020-04-27] MEDS ORDERED: MAGNESIUM SULFATE 2 GM/50 ML BAG IV ONE (11:00)
--- NOTE | 2020-04-27 12:01 | Cat Scan Report ---
CT ABDOMEN AND PELVIS WITH CONTRAST INDICATION: Lower abdominal pain CONTRAST: 100 cc Omnipaque 300 IV COMPARISON: None available. All CT scans at this location are performed using CT dose reduction for ALARA by means of automated e xposure control. FINDINGS: Lung bases show only mild atelectatic change. No pneumoperitoneum is seen. Liver shows fatt y infiltration but no obvious focal lesions. Liver is enlarged and has a length of 20.1 cm. Spleen is not enlarged. No upper urinary obstructive changes are seen. Gallbladder shows low density gallstone s but no definite wall thickening or inflammatory change. No biliary dilatation is noted. Pancreas ap pears within normal limits. Mild increase in colonic stool burden is seen which may indicate constipa tion. I do not see evidence of bowel obstruction. No lymphadenopathy is seen. Multiple cystic areas are seen in the pelvis appearing to likely involve the left ovary. 2 adjacent c ystic areas are seen to the left and posterior to the uterus measuring up to 5.6 cm in diameter with internal density of 22 Hounsfield units just above the water range. Thin clinton are seen. Mildly more superiorly and anteriorly another small similar cystic areas seen measuring 17 mm. The apparent right ovary is shows no abnormalities. No definite free fluid is seen. There appears to be generalized mil d edema throughout the mid to lower pelvis though I do not see definite focal inflammatory change. Mi ld subcutaneous edema is seen. Urinary bladder is moderately distended. IMPRESSION: 1. Multicystic process in the pelvis which probably involves the left ovary. Findings are nonspecific but would include ovarian cystic changes and pelvic inflammatory disease with tubo-ovarian abscesses . There appears to be mild generalized edema throughout the pelvis which possibly could include mild inflammation. 2. Moderate distention of the urinary bladder which is possibly related to this process 3. Pelvic ultrasound may be useful. Signer Name: Mumtaz Finn MD Signed: 04/27/2020 11:56 AM Workstation Name: [id number]
[2020-04-27] MEDS: INSULIN REGULAR, HUMAN 100 UNIT/ML 3ML VIAL SUB-Q SCH ×3 (12:22→21:33)
[2020-04-27 15:25] LABS: Blood Urea Nitrogen 7 mg/dL (7-17); Calcium 8.5 mg/dL (8.4-10.2); Hemolysis Index 0
[2020-04-27 15:30] LABS: BUN/Creatinine Ratio 23
[2020-04-27] MEDS: metroNIDAZOLE 500 MG TAB PO SCH ×2 (15:35→21:11)
[2020-04-27] MEDS: INSULIN NPH, HUMAN 100 UNIT/1 ML SUB-Q SCH ×2 (15:47→21:29)
--- NOTE | 2020-04-27 19:52 | Ultrasound Report ---
ULTRASOUND PELVIS INDICATION / CLINICAL INFORMATION: Abdominal pain/PAD/pelvic cysts. TECHNIQUE: Transabdominal. Duplex Color Doppler used: Yes. COMPARISON: No prior ultrasound. Prior CT abdomen and pelvis dated 04/07/2020 FINDINGS: UTERUS: The uterus is within normal limits in size and is anteverted in position. No evidence of foca l uterine lesion. The endometrial stripe measures 1.5 mm. RIGHT ADNEXA: No significant ovarian cyst or mass. Normal color Doppler blood flow. LEFT ADNEXA: The left ovary is enlarged measuring 9.6 x 6.4 x 6.2 cm There are multiple complex cysti c lesions of the left ovary which demonstrates internal echoes. These lesions measure approximately 2 .6 x 1.9 x 1.9 cm, 2.6 x 2.6 x 3.1 cm, 4.3 cm x 3.8 x 3.9 and 4.3 x 3.6 x 4.9 cm. None of these lesio ns demonstrate abnormally increased color flow. URINARY BLADDER: No significant abnormality. FREE FLUID: Minimal free pelvic fluid is likely physiologic. ADDITIONAL FINDINGS: None. IMPRESSION: 1. Enlarged left ovary with multiple complex cystic lesions described in detail above. These lesions likely represent hemorrhagic ovarian cysts. Follow-up is recommended. Signer Name: Collin Leavitt MD Signed: 04/27/2020 7:47 PM Workstation Name: [id number]
[2020-04-27] MEDS: SODIUM CHLORIDE 0.9% 1000 ML 1,000 ML IV SCH (20:06)
[2020-04-27] MEDS: DOXYCYCLINE 100 MG CAP PO SCH (21:12)
[2020-04-28] MEDS: HYDROmorphone 1 MG/1 ML INJ IV PRN ×2 (00:27→08:31)
[2020-04-28 02:12] LABS: Blood Urea Nitrogen 5 mg/dL (7-17); Hemolysis Index 0
[2020-04-28 02:13] LABS: BUN/Creatinine Ratio 17
[2020-04-28] MEDS: oxyCODONE /ACETAMINOPHEN 5-325MG TAB PO PRN ×2 (04:27→11:58)
[2020-04-28] MEDS: metroNIDAZOLE 500 MG TAB PO SCH ×2 (06:33→14:14)
[2020-04-28] MEDS: HEPARIN 5,000 UNIT/1 ML VIAL SUB-Q SCH ×2 (06:33→14:15)
[2020-04-28] MEDS ORDERED: POTASSIUM CHLORIDE ER 10 MEQ TAB PO ONE (08:00)
[2020-04-28] MEDS: INSULIN REGULAR, HUMAN 100 UNIT/ML 3ML VIAL SUB-Q SCH ×2 (08:30→12:06)
[2020-04-28] MEDS: INSULIN NPH, HUMAN 100 UNIT/1 ML SUB-Q SCH (08:54)
[2020-04-28 09:35] LABS: Amphetamine Screen,Urine Negative; Benzodiazepines Screen,Urine Negative; Cocaine Screen,Urine Negative; Methadone Screen,Urine Negative; Opiate Screen,Urine Negative
[2020-04-28 09:48] LABS: Bilirubin,Urine NEG (Negative); Blood,Urine NEG (Negative); Color,Urine Yellow (Yellow); Mucus,Urine 1+ /HPF; Protein,Urine <15 mg/dL mg/dL (Negative)
[2020-04-28] MEDS ORDERED: FAMOTIDINE 20 MG TAB PO SCH (10:00)
[2020-04-28 10:07] LABS: Cannabinoid Screen,Urine Positive
[2020-04-28] MEDS: levETIRAcetam 500 MG TAB PO SCH (11:49)
[2020-04-28] MEDS: DOXYCYCLINE 100 MG CAP PO SCH (11:49)
[2020-04-28] MEDS: NICOTINE 14 MG/24 HR PATCH TD SCH (11:50)
[2020-04-28 12:58] VITALS: BP 114/65
--- NOTE | 2020-04-28 13:51 | Discharge Summary ---
Providers - Providers Date of Admission: 04/26/20 15:27 Date of discharge: 04/28/20 Attending physician: ANTHONY MADDOX 04/26/20 22:32 Consult to Dietitian/Nutrition [CONS] Routine Physician Instructions: Reason For Exam: DKA Reason for Consult: Nutrition Recommendations Reason for Consult: Diet education Primary care physician: SUPERVISOR LOGGING Hospitalization Reason for admission: Diabetic ketoacidosis/abdominal pain Condition: Stable Pertinent studies: CT abdomen and pelvis Abdominal ultrasound Chest x-ray Hospital course: 29-year-old -Emir[place] female patient with significant past medical history of type 1 diabetes mellitus noncompliant with medications was admitted through emergency room with uncontrolled blood sugars and abdominal pain Initial work-up is consistent with diabetic ketoacidosis admitted to ICU initiated DKA pathway, on insulin drip and aggressive IV hydration Patient sugars brought to reasonable control transition to long-acting insulin 70/30 Novolin, patient received diabetic education nutrition education, patient's hemoglobin A1c was 19.4. Patient was counseled the importance of adhering to the treatment plan verbalized understanding, however remained noncompliant Patient's blood pressures were well controlled initially later secondary to noncompliance blood sugars were in the higher range CT abdomen and pelvis, abdominal ultrasound findings consistent with pelvic inflammatory disease, and ovarian cyst, patient received IV Rocephin x1 dose And started on doxycycline and Flagyl for total of 14 days Patient symptoms gradually but significantly improved Today is comfortable no new complaints vital signs stable physical examination unremarkable Blood sugars are however uncontrolled, patient strongly advised to comply with medications diet Smoking cessation counseling done Referral given to the patient to see SAMPLE TESTER Dr. Noe Mata As well as manager lpn Dr. Nina Lam. Patient is hemodynamically clinically stable at discharge Discharge diagnosis; -- DKA (diabetic ketoacidoses) resolved --Type 1 diabetes mellitus/uncontrolled --Severe metabolic acidosis, resolved --History of seizure disorder --Severe hyponatremia/pseudohyponatremia --Ongoing tobacco use --lower abdominal pain/pelvic inflammatory disease --Medical noncompliance; --DVT prophylaxis Patient is medically stable for discharge Disposition: TO HOME OR SELFCARE Time spent for discharge: 32 min Core Measure Documentation - Palliative Care Palliative Care/ Comfort Measures: Not Applicable - Core Measures Any of the following diagnoses?: none Exam - Constitutional Vitals: Temp Pulse Resp BP Pulse Ox 97.0 F L 71 20 114/65 100 04/28/20 12:13 04/28/20 12:13 04/28/20 12:13 04/28/20 12:13 04/28/20 12:13 General appearance: Present: no acute distress, well-nourished - EENT Eyes: Present: PERRL, EOM intact - Neck Neck: Present: supple, normal ROM - Respiratory Respiratory effort: normal Respiratory: bilateral: diminished, negative: rales, rhonchi, wheezing - Cardiovascular Rhythm: regular Heart Sounds: Present: S1 & S2 - Extremities Extremities: no ischemia, No edema - Abdominal General gastrointestinal: Present: soft, non-tender, non-distended, normal bowel sounds - Integumentary Integumentary: Present: clear, warm - Musculoskeletal Musculoskeletal: strength equal bilaterally - Psychiatric Psychiatric: appropriate mood/affect, cooperative - Neurologic Neurologic: CNII-XII intact, moves all extremities Plan Activity: advance as tolerated, no driving until cleared by PCP, other (Seizure precautions) Diet: diabetic Additional Instructions: Advised to comply with medications, diet, follow-up visits with the physicians. Advised to see private ADULT DAYCARE COORDINATOR Dr. Noe Mata in 1 week. Advised to see manager lpn/diabetic physician Dr. Lourdes Wood in 1 to 2 weeks. If you have worsening symptoms contact MD or go to nearest emergency room Follow up with: PRIMARY CARE,MD [Primary Care Provider] - 7 Days NOE MATA MD [Staff Physician] - 7 Days NINA LAM MD [Staff Physician] - 7 Days Prescriptions: metroNIDAZOLE [Flagyl TAB] 500 mg PO Q8HR #42 tablet Insulin Regular, Human [Humulin R] 5 unit SC ACHS #2 vial levETIRAcetam [Keppra TAB] 750 mg PO BID #60 tablet Insulin NPH, Human [NovoLIN N] 28 unit SUB-Q BIDDIAB #2 vial Sodium,Potassium Phosphates [Phos-Nak Packet] 1 each PO BID #6 powd.pack DOXYCYCLINE Hyclate [Vibramycin CAP] 100 mg PO BID #28 tab Other Discharge Orders: Glucometer (Amb) Location: None Selected Glucometer supplies[Amb] Location: None Selected
[2020-04-28] MEDS: SODIUM CHLORIDE 0.9% 1000 ML 1,000 ML IV SCH (14:14)
== END 2020-04-28 15:15 | disposition home or self-care (01) | DRG 638 ==
LOC: ED 13:16 → OBSVTOIN 15:27 → CC1 15:27 → 3A 04-27 10:10
PROVIDERS: ADMIT Internal Medicine; ATTEND Internal Medicine
DX: E11.10 Type 2 diabetes mellitus with ketoacidosis without coma (principal); E87.1 Hypo-osmolality and hyponatremia; N73.9 Female pelvic inflammatory disease, unspecified; G40.909 Epilepsy, unspecified, not intractable, without status epilepticus; F17.210 Nicotine dependence, cigarettes, uncomplicated; Z91.19 Patient's noncompliance with other medical treatment and regimen; Z71.6 Tobacco abuse counseling; Z82.49 Family history of ischemic heart disease and other diseases of the circulatory system; Z79.4 Long term (current) use of insulin; Z79.899 Other long term (current) drug therapy
CPT/HCPCS: 36415; 71045; 74177; 76856; 80048; 80053; 80307; 80320; 81001; 82550; 82805; 82962; 83036; 83735; 84100; 84443; 84703; 85027; 85610; 93005; 96374; 96375; G0378; G0480; J0696; J1170; J1644; J1815; J2270; J2765; J3475; J7030; J7040; Q9967

== ENCOUNTER 2020-04-29 15:08 | Emergency (ER) | payer SELFPAY | END 2020-04-29 16:34 | disposition left against medical advice (07) | LOC: ED 15:08 | DX: R10.9 Unspecified abdominal pain (principal); Z53.21 Procedure and treatment not carried out due to patient leaving prior to being seen by health care provider ==

== ENCOUNTER 2021-02-03 06:23 | Emergency (ER) | payer MEDICAID | END 2021-02-03 07:00 | LOC: ED 06:23 | DX: R10.9 Unspecified abdominal pain (principal); Z53.21 Procedure and treatment not carried out due to patient leaving prior to being seen by health care provider ==

== ENCOUNTER 2021-02-04 08:02 | Inpatient (IN) | payer MEDICAID ==
--- NOTE | 2021-02-04 09:26 | Consultation ---
Medications and Allergies Allergies Allergy/AdvReac Type Severity Reaction Status Date / Time ondansetron Allergy Hives Verified 11/30/19 04:16 [From Zofran (as hydrochloride)] Home Medications Medication Instructions Recorded Confirmed Last Taken Type DOXYCYCLINE Hyclate [Vibramycin 100 mg PO BID #28 tab 04/28/20 Unknown Rx CAP] Insulin NPH, Human [NovoLIN N] 28 unit SUB-Q BIDDIAB #2 vial 04/28/20 Unknown Rx Insulin Regular, Human [Humulin R] 5 unit SC ACHS #2 vial 04/28/20 Unknown Rx Sodium,Potassium Phosphates 1 each PO BID #6 powd.pack 04/28/20 Unknown Rx [Phos-Nak Packet] levETIRAcetam [Keppra TAB] 750 mg PO BID #60 tablet 04/28/20 Unknown Rx metroNIDAZOLE [Flagyl TAB] 500 mg PO Q8HR #42 tablet 04/28/20 Unknown Rx Assessment and Plan [facility] Consult Note # Demographics Consult Type: General Neurology Patient Location: Emergency Room First Name: Dewayne Last Name: Luis Date of : 1990 Age: 30 Gender: Female Time of Initial Page (Eastern Time): 02/04/2021, 09:01 Time of Return Call (Eastern Time): 02/04/2021, 09:02 # HPI History: 30 yo woman with history of uncontrolled DM, pelvic inflammmatory disease, presents with several weaks of unsteadiness and ataxia. # Assessment Impression: Ataxia, broad differntial including central cause, peripheral neuropathy. # Plan Additional Recommendations: MRI brain Workup for neuropathy including: HGB A1c, B12, TSH, RPR Referral to outpatient neurology Disposition: admit # [employer] Telemedicine: phone only
--- NOTE | 2021-02-04 09:27 | XRay Report ---
CHEST 1 VIEW INDICATION: dyspnea. COMPARISON: 04/26/2020 FINDINGS: Support devices: None. Heart: Within normal limits. Lungs/Pleura: No acute air space or interstitial disease. Additional findings: None. IMPRESSION: No acute findings. Signer Name: Noe Latham Jr, MD Signed: 02/04/2021 9:23 AM Workstation Name: [id number]
[2021-02-04 09:33] LABS: INR 0.94 (0.87-1.13)
[2021-02-04 09:37] LABS: Alanine Aminotransferase 13 units/L (7-56); Albumin 3.7 g/dL (3.9-5); Blood Urea Nitrogen 7 mg/dL (7-17); Calcium 9.1 mg/dL (8.4-10.2); Hemolysis Index 4
[2021-02-04 09:39] LABS: BUN/Creatinine Ratio 18
[2021-02-04] MEDS ORDERED: INSULIN REGULAR, HUMAN 100 UNITS/1 ML IV ONE (10:51)
[2021-02-04] MEDS ORDERED: LACTATED RINGERS 1,000 ML IV ONE ×2 (10:52→10:57)
[2021-02-04] MEDS ORDERED: MORPHINE 4 MG/1 ML INJ IV ONE (10:52)
[2021-02-04] MEDS ORDERED: METOCLOPRAMIDE 10 MG/2 ML INJ IV ONE (10:52)
[2021-02-04 10:59] LABS: Basophils % (Auto) 0.7 % (0.0-1.8); Eosinophils % (Auto) 0.8 % (0.0-4.3); Hemoglobin 14.6 gm/dl (10.1-14.3); Lymphocytes # (Auto) 1.5 K/mm3 (1.2-5.4); Lymphocytes % (Auto) 25.3 % (13.4-35.0); Mean Corpuscular HGB Conc 33 % (30-34); Mean Corpuscular Volume 82 fl (79-97); Monocytes # (Auto) 0.3 K/mm3 (0.0-0.8); Monocytes % (Auto) 5.1 % (0.0-7.3); Platelet Count 324 K/mm3 (140-440); Red Cell Distribution Width 14.6 % (13.2-15.2)
--- NOTE | 2021-02-04 12:31 | Cat Scan Report ---
CT ABDOMEN AND PELVIS WITH CONTRAST HISTORY: Abdominal pain COMPARISON: Prior CT on 04/27/2020 TECHNIQUE: Routine abdominal and pelvic CT exam performed following intravenous contrast administrat ion.. All CT scans at this location are performed using CT dose reduction for ALARA by means of autom ated exposure control. FINDINGS: CT ABDOMEN: Lung Bases: No significant abnormality. Liver: No significant abnormality. Biliary: No significant abnormality. Spleen: No significant abnormality. Unenlarged. Pancreas: No significant abnormality. Adrenals: No significant abnormality. Kidneys: There is a complex cystic mass versus fluid collection arising from the posterior left kidne y measuring 2.9 x 3.4 cm. Kidneys otherwise appear normal. This has developed since the prior study o n 04/27/2020. Lymphatics: No lymphadenopathy. Vasculature: No significant abnormality. Bowel/Peritoneum: No significant abnormality. No free air. No free fluid. Appendix not visualized. No pericecal inflammation. CT PELVIC: : There is an IUD in the uterus. Lymphatics: No lymphadenopathy. Osseous Structures: No aggressive appearing osseous lesions. Additional Findings: None IMPRESSION: 1. Interval development of 3.4 cm complex cystic collection versus mass in the posterior left kidney since the prior study on 04/27/2020. Differential considerations would include a focal renal abscess v ersus renal neoplasm. Renal ultrasound might be helpful to evaluate for internal characteristics in t he lesion. Signer Name: Moy Chang MD Signed: 02/04/2021 12:27 PM Workstation Name: [id number]
--- NOTE | 2021-02-04 12:37 | Cat Scan Report ---
CT head/brain w con INDICATION / CLINICAL INFORMATION: 30 years Female; dizzy weak, ataxia 100 ML OMNI 300. TECHNIQUE: Routine CT head with contrast. All CT scans at this location are performed using CT dose r eduction for ALARA by means of automated exposure control. Note, there are no unenhanced images available for interpretation. COMPARISON: 04/09/2019 FINDINGS: BRAIN / INTRACRANIAL CONTENTS: No acute hemorrhage, mass effect, midline shift, hydrocephalus, or acu te, large territorial infarct. No signs of significant atrophy or chronic infarct. No significant whi te matter abnormality seen. CRANIOCERVICAL JUNCTION: No significant abnormality. ORBITS: No significant abnormality of visualized orbits. SINUSES / MASTOIDS: Visualized paranasal sinuses and mastoid air cells are essentially clear. ADDITIONAL FINDINGS: Prominent soft tissue is seen in the roof the nasopharynx, presumably related to reactive adenoidal tissue. Please clinically correlate. IMPRESSION: 1. No focal mass, hemorrhage, hydrocephalus, or acute, large territorial infarct. Signer Name: Kailash Son MD, III Signed: 02/04/2021 12:32 PM Workstation Name: [id number]
[2021-02-04] MEDS ORDERED: cefTRIAXone/NS 2 GM/100 ML 2 GM/100 ML BAG IV ONE (12:39)
[2021-02-04] MEDS ORDERED: fentaNYL 100 MCG/2 ML INJ IV ONE (12:43)
[2021-02-04] MEDS ORDERED: LIDOCAINE 2%/EPINEPHRINE 1:100,000 VIAL (20 ML) INFILTRATI ONE (12:43)
[2021-02-04] MEDS ORDERED: DOXYCYCLINE 100 MG CAP PO ONE (12:43)
[2021-02-04] MEDS ORDERED: ONDANSETRON 4 MG/2 ML INJ IV PRN ×5 (15:21→16:45)
--- NOTE | 2021-02-04 15:21 | History and Physical Report ---
History of Present Illness Chief complaint: Weakness History of present illness: 30 YO Female with PTSD, Seizure Disorder, Nicotine Dependence, DM presents to ED for evaluation. Patient has diminished cognition at the time my evaluation and provides minimal history. Patient history taken from EMS staff, ED staff. As per staff the patient has experienced progressive weakness and abdominal discomfort over the past 1 week with persistently worsening symptoms over the same timeframe. EMS was notified and upon arrival the patient was found to be in distress and subsequent transported to [facility] for further care and evaluation of the aforementioned symptoms. The patient was seen and evaluated in the emergency department. All lab and imaging studies reviewed. Patient found to have metabolic encephalopathy, seizure disorder, as well as left cystic renal fluid collection of unknown significance. Patient placed in observation status and admitted to medical floor. Interventional radiology service consulted in ED for surgical intervention. No further history is obtainable. Prior admission on 04/26/2020 reviewed. No medication listed at time of admission for reconciliation. Patient has diminished cognition but has positive gag reflex and is able to protect her airway without difficulty. Past History Past Medical History: diabetes, other (See HPI) Past Surgical History: hernia repair Social history: . denies: smoking Family history: hypertension Medications and Allergies Allergies Allergy/AdvReac Type Severity Reaction Status Date / Time ondansetron Allergy Hives Verified 11/30/19 04:16 [From Zofran (as hydrochloride)] Home Medications Medication Instructions Recorded Confirmed Last Taken Type DOXYCYCLINE Hyclate [Vibramycin 100 mg PO BID #28 tab 04/28/20 Unknown Rx CAP] Insulin NPH, Human [NovoLIN N] 28 unit SUB-Q BIDDIAB #2 vial 04/28/20 Unknown Rx Insulin Regular, Human [Humulin R] 5 unit SC ACHS #2 vial 04/28/20 Unknown Rx Sodium,Potassium Phosphates 1 each PO BID #6 powd.pack 04/28/20 Unknown Rx [Phos-Nak Packet] levETIRAcetam [Keppra TAB] 750 mg PO BID #60 tablet 04/28/20 Unknown Rx metroNIDAZOLE [Flagyl TAB] 500 mg PO Q8HR #42 tablet 04/28/20 Unknown Rx Review of Systems ROS unobtainable: due to mental status Exam - Constitutional Vitals: Temp Pulse Resp BP Pulse Ox 98.9 F 61 18 97/55 98 02/04/21 13:15 02/04/21 13:15 02/04/21 13:15 02/04/21 13:55 02/04/21 13:40 General appearance: Present: mild distress - EENT Eyes: Present: PERRL ENT: hearing intact, clear oral mucosa - Neck Neck: Present: supple, normal ROM - Respiratory Respiratory effort: normal Respiratory: bilateral: CTA - Cardiovascular Heart Sounds: Present: S1 & S2. Absent: rub, click - Extremities Extremities: pulses symmetrical, No edema Peripheral Pulses: within normal limits - Abdominal General gastrointestinal: Present: soft, non-tender, non-distended, normal bowel sounds Female genitourinary: Present: normal - Integumentary Integumentary: Present: clear, warm, dry - Musculoskeletal Musculoskeletal: gait normal, strength equal bilaterally - Psychiatric Psychiatric: appropriate mood/affect, intact judgment & insight - Neurologic Neurologic: CNII-XII intact, moves all extremities HEART Score - HEART Score Troponin: Troponin T < 0.010 ng/mL (0.00-0.029) 02/04/21 08:52 Results - Labs CBC & Chem 7: 02/04/21 08:52 02/04/21 08:52 Labs: Abnormal lab results 02/04/21 02/04/21 02/04/21 Range/Units 08:52 08:52 08:52 RBC 5.50 H (3.65-5.03) M/mm3 Hgb 14.6 H (10.1-14.3) gm/dl Hct 45.0 H (30.3-42.9) % MCH 27 L (28-32) pg Sodium 126 L (137-145) mmol/L Chloride 88.5 L (98-107) mmol/L Creatinine 0.4 L (0.6-1.2) mg/dL Glucose 683 H* (65-100) mg/dL Hemoglobin A1c 21.2 H (4-6) % Lactic Acid (0.7-2.0) mmol/L Albumin 3.7 L (3.9-5) g/dL Vitamin B12 (211-911) pg/mL 02/04/21 02/04/21 Range/Units 08:52 08:52 RBC (3.65-5.03) M/mm3 Hgb (10.1-14.3) gm/dl Hct (30.3-42.9) % MCH (28-32) pg Sodium (137-145) mmol/L Chloride (98-107) mmol/L Creatinine (0.6-1.2) mg/dL Glucose (65-100) mg/dL Hemoglobin A1c (4-6) % Lactic Acid 2.30 H* (0.7-2.0) mmol/L Albumin (3.9-5) g/dL Vitamin B12 1983 H (211-911) pg/mL Assessment and Plan - Patient Problems (1) Metabolic encephalopathy Current Visit: Yes Status: Acute Plan to address problem: CTA, neuro check, seizure precautions, aspiration precautions, supportive care. (2) Renal abscess, left Current Visit: Yes Status: Acute Plan to address problem: Interventional radiology consulted, supportive care, patient pending surgical intervention. (3) Schizoaffective disorder Current Visit: No Status: Acute Qualifiers: Schizoaffective disorder type: unspecified Qualified Code(s): F25.9 - Schizoaffective disorder, unspecified Plan to address problem: Supportive care, continue medical management. (4) DVT prophylaxis Current Visit: Yes Status: Acute Plan to address problem: SCD to bilateral lower extremities while in bed (5) Case management patient Current Visit: Yes Status: Acute Plan to address problem: Case management consulted for discharge planning and assistance with social issues.
[2021-02-04] MEDS ORDERED: ACETAMINOPHEN 325 MG TAB PO PRN ×4 (15:27→16:45)
[2021-02-04] MEDS ORDERED: MORPHINE 4 MG/1 ML INJ IV PRN ×2 (15:31→16:45)
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
[2021-02-04] MEDS ORDERED: oxyCODONE /ACETAMINOPHEN 5-325MG TAB PO PRN ×2 (16:00→16:45)
[2021-02-04] MEDS ORDERED: ALBUTEROL 2.5 MG/3 ML NEBU IH PRN (16:00)
[2021-02-04] MEDS ORDERED: MORPHINE 2 MG/1 ML INJ IV PRN (16:00)
[2021-02-04] MEDS ORDERED: IBUPROFEN 600 MG TAB PO PRN (16:00)
[2021-02-04 19:21] LABS: Hepatitis B Surface Antigen Non-Reactive (Negative); Hepatitis C Virus Antibody Non-Reactive (NonReactive)
[2021-02-04] MEDS ORDERED: levETIRAcetam 500 MG TAB PO SCH (22:00)
[2021-02-04] MEDS: SODIUM CHLORIDE 0.9% 1000 ML 1,000 ML IV SCH (23:56)
[2021-02-05] MEDS ORDERED: INSULIN NPH/REGULAR 70/30 INJ SUB-Q ONE (00:06)
[2021-02-05] MEDS ORDERED: INSULIN GLARGINE 100 UNITS/ML SUB-Q ONE (00:07)
[2021-02-05] MEDS: levETIRAcetam 500 MG/5 ML ORAL LIQD PO SCH ×3 (00:23→22:00)
[2021-02-05] MEDS: PHOS-NAK POWDER PACKET PO SCH ×2 (00:58→10:02)
[2021-02-05] MEDS: MORPHINE 2 MG/1 ML INJ IV PRN ×2 (00:58→10:13)
[2021-02-05 06:16] LABS: Blood Urea Nitrogen 9 mg/dL (7-17); Hemolysis Index 3
[2021-02-05 06:18] LABS: BUN/Creatinine Ratio 30
[2021-02-05 06:21] LABS: Basophils % (Auto) 0.7 % (0.0-1.8); Eosinophils % (Auto) 0.6 % (0.0-4.3); Hematocrit 44.5 % (30.3-42.9); Hemoglobin 14.6 gm/dl (10.1-14.3); Lymphocytes # (Auto) 2.5 K/mm3 (1.2-5.4); Lymphocytes % (Auto) 39.6 % (13.4-35.0); Mean Corpuscular HGB Conc 33 % (30-34); Mean Corpuscular Volume 81 fl (79-97); Monocytes # (Auto) 0.3 K/mm3 (0.0-0.8); Monocytes % (Auto) 5.4 % (0.0-7.3); Platelet Count 329 K/mm3 (140-440); Red Blood Count 5.53 M/mm3 (3.65-5.03)
[2021-02-05] MEDS: SODIUM CHLORIDE 0.9% 1000 ML 1,000 ML IV SCH ×2 (06:23→20:09)
[2021-02-05] MEDS: INSULIN GLARGINE 100 UNITS/ML SUB-Q SCH ×2 (07:55→10:02)
[2021-02-05] MEDS: INSULIN LISPRO 100 UNIT/ML SUB-Q SCH ×4 (10:01→22:00)
--- NOTE | 2021-02-05 12:57 | Progress Note ---
Assessment and Plan --Acute metabolic encephalopathy resolved, CT head unremarkable -- Renal abscess, left Interventional radiology consulted, supportive care, patient pending surgical intervention. Ordered for blood culture and renal ultrasound Also discussed with urologist --Schizoaffective disorder Resumed home meds Supportive care, continue medical management. --Possible PID Smear has sent out, will order for pelvic ultrasound Patient does endorse that she had a stucked tampons since May -LAMP SHADES SUPERVISOR consulted -- DVT prophylaxis SCD to bilateral lower extremities while in bed --Full CODE STATUS --Case management consulted for discharge planning and assistance with social issues. Daily clinical course 02/05/21: Wait for pelvic and renal ultrasound, blood culture pending. Continue empiric antibiotics. LAMP SHADES SUPERVISOR consulted will follow recommendation. I personally discussed with urologist and recommended to continue medical management and possible drainage by IR. Subjective Date of service: 02/05/21 Interval history: Patient seen and examined. Medical records and medication list reviewed. No acute event overnight noted by the RN. Patient denies any chest pain or difficulty breathing. Patient c/o pelvic pain and stated that she had tampon stuck in her vagina since May and she is unable to take it out Discussed plan of care at bedside with patient. Objective - Exam Narrative Exam: GENERAL: well-developed and well-nourished -Ira[place] female lying on bed appeared to be in moderate discomfort. HEENT: Normocephalic. Atraumatic. No conjunctival congestion or icterus. Patient has moist mucous membranes. NECK: Supple. Trachea midline. CHEST/LUNGS: Clear to auscultated bilaterally, breathing nonlabored. No wheezes crackles or rhonchi. HEART/CARDIOVASCULAR: Regular in rate and rhythm. S1 and S2 positive. ABDOMEN: Abdomen is soft, complains of tenderness even on touch. SKIN: There is no rash. Warm and dry. NEURO: No focal motor deficit. Follows command. MUSCULOSKELETAL: No joint effusion or tenderness. EXTRIMITY: No edema, no cyanosis or clubbing. PSYCH: Cooperative. - Constitutional Vitals: Vital Signs - 12hr 02/05/21 02/05/21 02/05/21 01:03 02:04 04:51 Temperature 98.3 F Pulse Rate 55 L 58 L 57 L Respiratory 16 18 18 Rate Blood Pressure 102/67 99/61 O2 Sat by Pulse 99 97 99 Oximetry - Labs CBC & Chem 7: 02/05/21 05:24 02/05/21 05:24 Labs: Abnormal lab results 02/04/21 02/05/21 02/05/21 Range/Units 23:44 02:00 05:24 RBC 5.53 H (3.65-5.03) M/mm3 Hgb 14.6 H (10.1-14.3) gm/dl Hct 44.5 H (30.3-42.9) % MCH 27 L (28-32) pg Lymph % (Auto) 39.6 H (13.4-35.0) % Sodium (137-145) mmol/L Chloride (98-107) mmol/L Creatinine (0.6-1.2) mg/dL Glucose (65-100) mg/dL POC Glucose 408 H 386 H (70-105) mg/dL 02/05/21 02/05/21 02/05/21 Range/Units 05:24 09:22 11:02 RBC (3.65-5.03) M/mm3 Hgb (10.1-14.3) gm/dl Hct (30.3-42.9) % MCH (28-32) pg Lymph % (Auto) (13.4-35.0) % Sodium 132 L (137-145) mmol/L Chloride 96.1 L (98-107) mmol/L Creatinine 0.3 L (0.6-1.2) mg/dL Glucose 263 H (65-100) mg/dL POC Glucose 453 H 307 H (70-105) mg/dL HEART Score - HEART Score Troponin: Troponin T < 0.010 ng/mL (0.00-0.029) 02/04/21 08:52
--- NOTE | 2021-02-05 16:42 | Ultrasound Report ---
ULTRASOUND PELVIS INDICATION / CLINICAL INFORMATION: PID. TECHNIQUE: Transabdominal. Duplex Color Doppler used: No. COMPARISON: CT abdomen/pelvis with contrast 02/04/2021 and pelvic ultrasound 04/27/2020.. FINDINGS: UTERUS: - Appearance: Anteverted. - Size (cm): 7.0 cm - Endometrial Complex (if present): No significant abnormality.. Thickness in cm (if measured) = 0.8 cm - Mass or cyst: None. - Additional findings: IUD is visualized in normal placement within the uterus. RIGHT ADNEXA: The right ovary measures 3.4 cm. No significant ovarian cyst or mass. Normal color Dopp ler blood flow. LEFT ADNEXA: The left ovary measures 3.9 cm. No significant ovarian cyst or mass. Normal color Dopple r blood flow. URINARY BLADDER: No significant abnormality. FREE FLUID: None. ADDITIONAL FINDINGS: None. IMPRESSION: 1. Normal IUD placement. No significant abnormality of the pelvis. Scribed by: Lidia Mendosa RDMS, RVT Scribed: 02/05/2021 3:29 PM I have reviewed the images, agree with this report, and edited this report as needed. Signer Name: Castillo Manning MD Signed: 02/05/2021 4:38 PM Workstation Name: [email or web address]
--- NOTE | 2021-02-05 17:56 | Electrocardiograph Report ---
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
--- NOTE | 2021-02-06 00:27 | Consultation ---
DATE OF CONSULTATION: 05/21/2018 HISTORY OF PRESENT ILLNESS: The patient is a 27-year-old woman with PTSD, seizure disorder, who has a change in mental status, cannot give a history, looks much older than her age. She has a severe encephalopathy, cannot communicate and complains of abdominal pain. PAST MEDICAL HISTORY: Unknown. PAST SURGICAL HISTORY: Previous hernia surgery. SOCIAL HISTORY: Unknown. FAMILY HISTORY: Noncontributory. REVIEW OF SYSTEMS: Really unobtainable. PHYSICAL EXAMINATION: GENERAL: She is awake, but she is not cooperative. She cannot give a history. She is complaining of mid epigastric and lower abdominal pain. BACK: There is no CVA tenderness. ABDOMEN: Soft, but moderately distended. IMPRESSION AND PLAN: She has had severe constipation. She has a CT that shows relatively new over the last 8-9 months 3 cm cystic collection in the lower part of the left kidney. I do not think this would be causing her pain. Interventional was consulted. It could be percutaneously drained. She does not have a white count. She has had a sugar that was 683. Her renal function is normal. IMPRESSION: Abdominal pain, etiology unknown. Recommend general surgical consultation. Interventional has been consulted. I do not think that this is likely causing her diffuse abdominal pain. We will consult as needed. Unlikely that this is causing the acute episode of abdominal pain. TID: [id number] RECEIPT: [id number] NORA/ASHISH
[2021-02-06 05:27] VITALS: BP 105/67
[2021-02-06] MEDS: INSULIN LISPRO 100 UNIT/ML SUB-Q SCH ×2 (09:19→12:30)
[2021-02-06] MEDS: levETIRAcetam 500 MG/5 ML ORAL LIQD PO SCH (09:20)
[2021-02-06] MEDS ORDERED: INSULIN GLARGINE 100 UNITS/ML SUB-Q SCH (09:30)
[2021-02-06] MEDS ORDERED: INSULIN LISPRO 100 UNIT/ML SUB-Q SCH (11:30)
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
== END 2021-02-06 13:15 | disposition left against medical advice (07) | DRG 70 ==
LOC: ED 08:02 → 3A 16:47 → OBSVTOIN 02-05 15:50
PROVIDERS: ADMIT Internal Medicine; ATTEND Internal Medicine
DX: G93.41 Metabolic encephalopathy (principal); N15.1 Renal and perinephric abscess; G40.909 Epilepsy, unspecified, not intractable, without status epilepticus; F25.9 Schizoaffective disorder, unspecified; F41.9 Anxiety disorder, unspecified; Z20.822 Contact with and (suspected) exposure to COVID-19; E87.2 Acidosis; R27.0 Ataxia, unspecified; E11.65 Type 2 diabetes mellitus with hyperglycemia; N73.9 Female pelvic inflammatory disease, unspecified; F17.200 Nicotine dependence, unspecified, uncomplicated; F15.10 Other stimulant abuse, uncomplicated; F43.10 Post-traumatic stress disorder, unspecified; E86.0 Dehydration; E11.42 Type 2 diabetes mellitus with diabetic polyneuropathy; Z79.899 Other long term (current) drug therapy; Z88.8 Allergy status to other drugs, medicaments and biological substances; Z79.4 Long term (current) use of insulin; Z98.891 History of uterine scar from previous surgery; Z91.19 Patient's noncompliance with other medical treatment and regimen; Z82.49 Family history of ischemic heart disease and other diseases of the circulatory system
CPT/HCPCS: 36415; 70470; 71045; 74177; 76856; 80048; 80053; 80074; 80307; 80320; 81001; 82140; 82550; 82607; 82805; 82962; 83036; 83735; 84100; 84443; 84484; 84703; 85025; 85610; 86592; 87040; 87210; 87591; 87806; 93005; 96361; 96365; 96372; 96375; G0378; G0480; J0696; J1815; J2270; J2765; J3010; J7030; J7120; Q0162; Q9967; U0003

== ENCOUNTER 2021-02-06 14:52 | Emergency (ER) | payer MEDICAID ==
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
[2021-02-06 16:10] LABS: Basophils % (Auto) 0.9 % (0.0-1.8); Eosinophils # (Auto) 0.1 K/mm3 (0.0-0.4); Eosinophils % (Auto) 1.4 % (0.0-4.3); Hematocrit 43.3 % (30.3-42.9); Hemoglobin 13.9 gm/dl (10.1-14.3); Lymphocytes # (Auto) 2.1 K/mm3 (1.2-5.4); Mean Corpuscular HGB Conc 32 % (30-34); Mean Corpuscular Volume 81 fl (79-97); Monocytes # (Auto) 0.6 K/mm3 (0.0-0.8); Monocytes % (Auto) 11.3 % (0.0-7.3); Platelet Count 307 K/mm3 (140-440); Red Blood Count 5.37 M/mm3 (3.65-5.03); Red Cell Distribution Width 14.6 % (13.2-15.2)
[2021-02-06 16:26] LABS: Blood Urea Nitrogen 13 mg/dL (7-17); Calcium 8.7 mg/dL (8.4-10.2); Hemolysis Index 6
[2021-02-06 16:33] LABS: BUN/Creatinine Ratio 22
[2021-02-06] MEDS ORDERED: INSULIN REGULAR, HUMAN 100 UNITS/1 ML SUB-Q ONE (17:17)
[2021-02-06] MEDS ORDERED: DEXTROSE 50% IN WATER (25GM) 50 ML SYRINGE IV PRN (17:18)
[2021-02-06] MEDS: INSULIN REGULAR, HUMAN 100 UNITS/1 ML SUB-Q SCH ×2 (19:40→23:29)
[2021-02-06] MEDS ORDERED: ONDANSETRON 4 MG ODT TAB ONE (20:05)
[2021-02-06 23:12] LABS: Bilirubin,Urine NEG (Negative); Blood,Urine NEG (Negative); Color,Urine Yellow (Yellow); Mucus,Urine FEW /HPF; Protein,Urine <15 mg/dL mg/dL (Negative); Urobilinogen,Urine < 2.0 mg/dL (<2.0)
[2021-02-06 23:20] LABS: Amphetamine Screen,Urine PRESUMPTIVE NEGATIVE; Benzodiazepines Screen,Urine PRESUMPTIVE NEGATIVE; Cannabinoid Screen,Urine PRESUMPTIVE POSITIVE; Cocaine Screen,Urine PRESUMPTIVE NEGATIVE; Methadone Screen,Urine PRESUMPTIVE NEGATIVE; Opiate Screen,Urine PRESUMPTIVE NEGATIVE
[2021-02-07] MEDS: INSULIN REGULAR, HUMAN 100 UNITS/1 ML SUB-Q SCH ×4 (07:57→22:48)
[2021-02-07] MEDS ORDERED: IBUPROFEN 800 MG TAB PO PRN (10:06)
[2021-02-07] MEDS ORDERED: LORazepam 1 MG TAB PO ONE (10:07)
--- NOTE | 2021-02-07 10:07 | Event Note ---
S: Abdominal pain, anxiety O: Tearful stable vital signs A: Schizoaffective disorder, acute depression, left renal abscess, hyperglycemia history of diabetes mellitus P: According to discharge summary, interventional radiologist and urologist were both consulted. Due to the small size of the renal abscess, empiric antibiotics were recommended. No signs of sepsis or SIRS. Pain medication antibiotics ordered. Sliding scale escalated. Anxiolytic Patient is medically clear for psychiatric care.
[2021-02-07] MEDS: DOXYCYCLINE 100 MG CAP PO SCH ×2 (10:58→22:47)
[2021-02-07] MEDS: metroNIDAZOLE 500 MG TAB PO SCH ×2 (10:58→22:48)
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
[2021-02-08] MEDS: INSULIN REGULAR, HUMAN 100 UNITS/1 ML SUB-Q SCH ×2 (07:21→11:55)
[2021-02-08 08:53] VITALS: BP 113/71
--- NOTE | 2021-02-08 09:55 | Progress Note ---
Subjective - Reason for Consult Consult date: 02/08/21 Reason for consult: SI - Chief Complaint Chief complaint: The patient was seen today in the Ed waiting room. Patient has no complaints today. She reports sleep and appetite as good. She denies any current suicidal/homicidal ideation and denies hallucinations. REVIEW OF SYSTEMS Constitutional: Negative for weight loss ENT: Negative for stridor Respiratory: Negative for cough or hemoptysis All other systems reviewed and are negative MENTAL STATUS EXAMINATION General Appearance and Behavior: Age appropriate, wearing appropriate clothes, cooperative, polite with questioning, fair eye contact, calm Cooperation: cooperative Psychomotor Behavior: Psychomotor normal Mood: "good" Affect and affective range: congruent with stated mood Thought Process: goal directed Thought Content: Denies Speech: Normal volume, Regular rate and rhythm Suicidal Ideation: Denies Homicidal Ideation: Denies hallucination: Denies Delusions: None elicited Impulse Control: intact Insight and Judgment: Poor Memory: Intact Attention: attentive, engaging Orientation: Alert and oriented Diagnoses: Major Depressive Disorder, Recurrent, Severe- F33.2 Treatment Plan Continue -Prozac 20 mg po daily Continue- Trazodone 50mg po QHS PSYCHOTHERAPY: Supportive psychotherapy provided MEDICAL: Per primary team DELIRIUM PRECAUTIONS: Please re-orient patient frequently, keep lights on during the day, and minimize benzodiazepines and opiates as these medications could worsen patient's confusion. RECORDS OFFICER: Per medical team DISPOSITION: Do not recommend acute psychiatric inpatient treatment Will sign off. The patient should be compliant with medications, not to use drugs and not to drink alcohol. The patient understands that if suicidal ideas, homicidal ideas or any endangering thoughts/behavior should arise, they should immediately seek for emergent assistance including but not limited to crisis hot line and emergency room. Follow up with outpatient psychiatry and PCP within 7- 14 day post discharge. Please contact with any questions and/or concerns. Case staffed with Dr. Massey Mental Status Exam - Vital signs Last Vital Signs Temp 97.9 F 02/08/21 08:52 Pulse 90 02/08/21 08:52 Resp 18 02/08/21 08:52 BP 113/71 02/08/21 08:52 Pulse Ox 99 02/08/21 08:52
[2021-02-08] MEDS: metroNIDAZOLE 500 MG TAB PO SCH (10:44)
[2021-02-08] MEDS: DOXYCYCLINE 100 MG CAP PO SCH (10:45)
--- NOTE | 2021-02-08 10:46 | Event Note ---
Date: 02/08/21 Patient has been seen, evaluated, and cleared by psychiatry team. Inpatient placement is no longer recommended. Patient will be discharged at this time with outpatient follow-up information.
== END 2021-02-08 13:01 | disposition home or self-care (01) ==
LOC: ED 14:52
DX: F25.9 Schizoaffective disorder, unspecified (principal); Z20.822 Contact with and (suspected) exposure to COVID-19; E11.9 Type 2 diabetes mellitus without complications; F17.200 Nicotine dependence, unspecified, uncomplicated; Z98.890 Other specified postprocedural states; Z79.899 Other long term (current) drug therapy; Z88.8 Allergy status to other drugs, medicaments and biological substances
CPT/HCPCS: 36415; 80048; 80307; 81001; 82962; 84703; 85025; 96372; 99284; U0003; 80320; G0480; J1815; Q0162

== ENCOUNTER 2021-02-16 12:26 | Emergency (ER) | payer MEDICAID | END 2021-02-16 12:30 | disposition left against medical advice (07) | LOC: ED 12:26 | DX: R10.9 Unspecified abdominal pain (principal); Z53.21 Procedure and treatment not carried out due to patient leaving prior to being seen by health care provider ==